=== PATIENT | female | born 1950 | race Caucasian/White ===

== ENCOUNTER 2018-10-03 10:36 | Observation (INO) | payer MEDICARE ==
[~2018-10-03] VITALS: Ht 162.6 cm; Wt 103.5 kg
--- OUTSIDE RECORDS SUMMARY | 2018-10-03 10:39 | XMS REPORT | Clinical Summary ---
Author Author [facility] Organization [facility] Address Unknown Phone Unavailable Care Team Providers Care Counter Maker Name Role Phone Terese Walker MD PCP Allergies Comments Active Allergy Reactions Severity Noted Date Penicillin Breathing 07/11/2017 problems Medications End Date Status Medication Sig Dispensed Refills Start Date Active silver sulfADIAZINE Apply to 25 g 0 (SILVADENE) 1 % topical affected area 4 creamIndications: Ulcer, daily. skin, non-healing Active clonazePAM (KLONOPIN) 0.5 Take 1 tablet 30 tablet 2 mg tabletIndications: by mouth 4 Anxiety state, daily. unspecified Active acetaminophen-codeine Take 1 tablet 20 tablet 0 (TYLENOL/CODEINE #3) by mouth 4 300-30 mg per every 4 hours tabletIndications: Caries as needed for Pain. Active traMADol (ULTRAM) 50 mg Take 1 tablet 30 tablet 0 tabletIndications: S/P by mouth 4 tooth extraction, Pain, every 8 hours dental as needed for Pain. Active cloNIDine HCl (CATAPRES) Take 1 tablet 90 tablet 2 0.1 mg tabletIndications: by mouth at 4 Insomnia, unspecified, bedtime HTN (hypertension) nightly. Active omeprazole (PRILOSEC) 20 Take 1 90 capsule 2 mg delayed release capsule by 5 capsuleIndications: GERD mouth daily. (gastroesophageal reflux disease) Active promethazine (PHENERGAN) Take 1 tablet 30 tablet 2 12.5 mg by mouth 2 5 tabletIndications: Nausea times daily with vomiting as needed for Nausea or Vomiting. Active Acetaminophen 650 mg Take 650 mg 0 tablet by mouth 2 3 times daily. Active 1 mL diphenhydrAMINE Take 5 mL by 60 mL 0 syrup-1 mL lidocaine mouth 3 times 6 mucosal solution-1 mL daily. xwmpirqtj-iekrygfh-izqdmo antwon-simethicone oral suspension-CMPDIndication s: Ulcer aphthous oral Active cyanocobalamin (VITAMIN Inject 1,000 1 mL 0 B-12) 1,000 mcg/mL mcg under the 6 injectionIndications: skin every Other fatigue month for Other (fatigue). Active Syringe with Needle 3mL Inject 10 Syringe 0 23Gx1" (BD INTEGRA 3ML intramuscular 6 23GX1") ly every syringe-needleIndications month for : Other fatigue Other Use a new syringe each time. Pharmacist is authorized to dispense any syringe/needl e brand/size suitable for patient administratio n. Active metFORMIN (GLUCOPHAGE-XR) TAKE ONE (1) 180 tablet 1 500 mg ER extended TABLET(S) BY 6 release MOUTH TWICE A tabletIndications: DAY. Diabetes mellitus type 2 in obese Active tretinoin (RETIN-A) 0.025 Apply to 20 g 3 % topical affected area 7 creamIndications: Acne at bedtime vulgaris nightly Apply small pea-sized amount to entire face. Start 3x per week and increase as tolerated.. Active acetaminophen-codeine Take 1 tablet 20 tablet 0 (TYLENOL/CODEINE #3) by mouth 7 300-30 mg per every 4 hours tabletIndications: Status as needed for post re-excision of Pain. malignant skin lesion Active hydroCHLOROthiazide 12.5 TAKE ONE (1) 90 capsule 0 mg capsuleIndications: CAPSULE(S) BY 7 Essential hypertension MOUTH EVERY MORNING.. Active potassium chloride Take 1 tablet 5 tablet 0 (KLOR-CON M20) 20 mEq by mouth 7 extended release daily. tabletIndications: Hypokalemia Active gabapentin (NEURONTIN) Take 1 270 capsule 2 300 mg capsule by 7 capsuleIndications: mouth 3 times Diabetic mononeuropathy daily. associated with diabetes mellitus due to underlying condition Active amLODIPine (NORVASC) 5 mg Take 1 tablet 180 tablet 2 tabletIndications: by mouth 2 7 Essential hypertension times daily. Active zolpidem (AMBIEN) 5 mg TAKE ONE (1) 30 tablet 1 TabIndications: Insomnia, TABLET(S) BY 7 unspecified MOUTH AT BEDTIME NIGHTLY.. Active Irbesartan 150 mg tablet Take 1 tablet 180 tablet 3 by mouth 2 7 times daily. Active traMADol (ULTRAM) 50 mg Take 1 tablet 15 tablet 0 tabletIndications: Wrist by mouth 7 pain, acute, right every 6 hours as needed for Pain. Active albuterol (VENTOLIN Inhale 2 20.1 g 0 HFA,PROVENTIL HFA,PROAIR Puffs by 7 HFA) 90 mcg/actuation mouth 4 times inhalerIndications: SOB daily as (shortness of breath) on needed for exertion Wheezing. Active FLUoxetine (PROZAC) 20 mg Take 2 180 capsule 3 capsuleIndications: capsules by 8 Anxiety mouth daily. Active glipiZIDE (GLUCOTROL) 10 Take 1 tablet 90 tablet 2 mg tabletIndications: by mouth 8 Controlled type 2 daily. diabetes mellitus without complication, without long-term current use of insulin, Medication dose decreased Active atorvastatin (LIPITOR) 20 Take 1 tablet 90 tablet 2 mg tabletIndications: by mouth at 8 Pure hypercholesterolemia bedtime nightly. Active loratadine (CLARITIN) 10 Take 1 tablet 90 tablet 2 mg tabletIndications: by mouth 8 Allergic cough daily. Active hydrALAZINE (APRESOLINE) Take 4 tabs 1080 tablet 2 25 mg tabletIndications: (100mg) p.o. 8 Essential hypertension, TID for HTN. benign, Essential hypertension Active ciclesonide (ZETONNA) 37 Use 1 [place] 6.7 g 2 mcg/actuation nasal HFA in each 8 inhalerIndications: nostril Allergic cough daily. Substituted for Nasonex per P&T. Active sulindac (CLINORIL) 200 Take 1 tablet 40 tablet 0 mg tabletIndications: by mouth 2 8 Right wrist pain, times daily Post-traumatic as needed for osteoarthritis of first Pain. carpometacarpal joint of right hand, Median mononeuropathy, right 11/02/2017 Discontinued glipiZIDE (GLUCOTROL) 10 Take 1 tablet 90 tablet 2 09/15/201 mg tabletIndications: by mouth 7 Controlled type 2 daily. diabetes mellitus without complication, without long-term current use of insulin, Hypoglycemia, Medication dose decreased 11/02/2017 Discontinued hydrALAZINE (APRESOLINE) Take 4 tabs 360 tablet 2 25 mg tabletIndications: (100mg) p.o. 7 Essential hypertension, TID for HTN. benign 11/02/2017 Discontinued atorvastatin (LIPITOR) 20 Take 1 tablet 90 tablet 2 mg tabletIndications: by mouth at 7 Pure hypercholesterolemia bedtime nightly. 11/02/2017 Discontinued loratadine (CLARITIN) 10 Take 1 tablet 90 tablet 2 mg tabletIndications: by mouth 7 Allergic cough daily. 11/02/2017 Discontinued ciclesonide (ZETONNA) 37 Use 1 [place] 6.7 g 2 mcg/actuation nasal HFA in each 7 inhaler nostril daily. Substituted for Nasonex per P&T. 11/02/2017 Discontinued sulindac (CLINORIL) 200 Take 1 tablet 40 tablet 0 mg tabletIndications: by mouth 2 8 Right wrist pain, times daily Post-traumatic as needed for osteoarthritis of first Pain. carpometacarpal joint of right hand 11/02/2017 tropicamide (MYDRIACYL) Instill 1 15 mL 0 0.5 % ophthalmic Drop in each 8 solutionIndications: eye once as Controlled type 2 needed for up diabetes mellitus without to 1 dose complication, without (for poor long-term current use of retina scan insulin image). Active Problems Problem Noted Date Syncope and collapse 11/23/2016 Overview: H/o syncopy Mood disorder 04/13/2014 Edentulism, partial 04/06/2014 Anxiety state, unspecified 12/16/2013 Adjustment disorder with mixed anxiety and depressed mood 10/30/2013 Encounters Care Team Description Date Type Specialty Terese Walker MD 11/19/2017 Hospital Radiology Encounter Terese Walker MD Median mononeuropathy, right (Primary Dx); Essential hypertension; Right wrist pain; Controlled type 2 diabetes mellitus without complication, without long-term current use of insulin; Post-traumatic osteoarthritis of first carpometacarpal joint of right hand; Medication dose decreased; Pure hypercholesterolemia; Allergic cough; Essential hypertension, benign; Visit for screening mammogram; Encounter to discuss test results 11/02/2017 Office Visit Family Practice Terese Walker MD Tan, Faye C, MD Right wrist pain (Primary Dx); Controlled diabetes mellitus type 2 with complications, 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; Carpal tunnel syndrome of right wrist; Swelling of right hand 10/15/2017 Procedure Visit Physical Medicine and Rehab after 10/02/2017 Family History Medical History Relation Name Comments Hypertension Brother Hypertension Sister Cancer Sister breast cancer Relation Name Status Comments Brother Father brain tumor Mother Alive Sister Sister Social History Date Tobacco Use Types Packs/Day Years Used Never Smoker Smokeless Tobacco: Never Used Tobacco Cessation: Counseling Given: Yes Alcohol Use Drinks/Week oz/Week Comments Yes Sex Assigned at Date Recorded Not on file Industry Job Start Date Occupation Not on file Not on file Not on file Travel End Travel History Travel Start No recent travel history available. Last Filed Vital Signs Time Taken Vital Sign Reading 11/02/2017 8:16 AM [employer]KJ[employer] OPERATOR Blood Pressure 152/64 11/02/2017 7:28 AM INKJET OPERATOR Pulse 79 11/02/2017 7:28 AM INKJET OPERATOR Temperature 36.7 C (98.1 F) 11/02/2017 7:28 AM INKJET OPERATOR Respiratory Rate 18 - Oxygen Saturation - - Inhaled Oxygen - Concentration 11/02/2017 7:28 AM INKJET OPERATOR Weight 101.6 kg (224 lb) 11/02/2017 7:28 AM INKJET OPERATOR Height 162.6 cm (5' 4") 11/02/2017 7:28 AM INKJET OPERATOR Body Mass Index 38.45 Plan of Treatment Health Maintenance Due Date Last Done Comments Breast Cancer Scrn 01/24/2017 01/25/2016, 02/12/2014 (Yearly) IMM Pneumococcal Age 65 2017 and Up DM Retinal Exam (Yearly) 12/27/2017 12/27/2016, 07/14/2015, 12/25/2013, Additional history exists DM Foot Exam (Yearly) 06/04/2018 06/04/2017, 07/14/2015, 07/03/2014 DM Microalbumin Urine 06/04/2018 06/04/2017, 01/23/2017, 09/07/2016, Scrn (Yearly) Additional history exists DM HGBA1C (Yearly) 11/02/2018 11/02/2017, 01/23/2017, 05/04/2016, Additional history exists Colonoscopy 5yr 04/15/2019 04/15/2014 Procedures Comments Procedure Name Priority Date/Time Associated Diagnosis XRAY UPPER GI W AIR Routine 11/19/2017 Gastroesophageal reflux CONTRAST 9:58 AM CDT disease without esophagitis HEMOGLOBIN A1C STAT 11/02/2017 Controlled type 2 9:03 AM INKJET OPERATOR diabetes mellitus without complication, without long-term current use of insulin NEEDLE EMG, 1 EXTREMITY Routine 10/15/2017 Numbness and tingling of 2:30 PM INKJET OPERATOR right hand after 10/02/2017 Results * XRAY UPPER GI W AIR CONTRAST (11/19/2017 9:58 AM CDT) Impressions Performed At IMPRESSION: SMS Slightly delayed relaxation of the distal esophageal sphincter with ballooning of the distal esophagus and intraesophageal reflux. Tertiary esophageal contraction waves eventually clear the esophageal contents. Dictated By: Asa Nelson MD, 11/19/2017 5:08 PM I have reviewed the study and agree with the findings in this report. Signed By: Evan West MD, 11/20/2017 1:09 PM Narrative Performed At EXAM: FLUOROSCOPY BARIUM UPPER GI DOUBLE CONTRAST SMS DATE: 11/19/2017 9:58 AM INDICATION: Dysphasia to liquids and solids. Regurgitation of food. COMPARISON: Upper GI 11/12/2014 TECHNIQUE: Upper GI was performed using double contrast technique orally. A barium tablet was also given. Images were obtained under fluoroscopy. Fluoroscopy time: 369 seconds Preliminary radiograph: Normal. Swallowing: Normal. The upper esophageal sphincter opened promptly. Esophagus: Motility: There is normal motility and esophageal peristalsis. Anatomy: There is moderate ballooning of the lower esophagus with incomplete relaxation of the lower esophageal sphincter. This also results in intraesophageal reflux with tertiary was a contraction. The lower esophageal sphincter eventually relaxes and the intraesophageal contents clear with repeated swallowing. The barium tablet passed eventually. Hiatal hernia: None. Gastroesophageal reflux: No gastroesophageal reflux was observed during fluoroscopic examination, however this does not entirely exclude gastroesophageal reflux. Stomach:Normal. There are no obstructions or extrinsic compressions identified. Gastric volume is preserved. No peptic ulcers or tumors are identified. Peristalsis of the stomach is normal and the stomach empties rapidly into the small bowel. Duodenum:Normal. No ulcers or masses identified. Procedure Note Interface, Rad/Mammog In - 11/20/2017 1:14 PM CDT EXAM: FLUOROSCOPY BARIUM UPPER GI DOUBLE CONTRAST DATE: 11/19/2017 9:58 AM INDICATION: Dysphasia to liquids and solids. Regurgitation of food. COMPARISON: Upper GI 11/12/2014 TECHNIQUE: Upper GI was performed using double contrast technique orally. A barium tablet was also given. Images were obtained under fluoroscopy. Fluoroscopy time: 369 seconds Preliminary radiograph: Normal. Swallowing: Normal. The upper esophageal sphincter opened promptly. Esophagus: Motility: There is normal motility and esophageal peristalsis. Anatomy: There is moderate ballooning of the lower esophagus with incomplete relaxation of the lower esophageal sphincter. This also results in intraesophageal reflux with tertiary was a contraction. The lower esophageal sphincter eventually relaxes and the intraesophageal contents clear with repeated swallowing. The barium tablet passed eventually. Hiatal hernia: None. Gastroesophageal reflux: No gastroesophageal reflux was observed during fluoroscopic examination, however this does not entirely exclude gastroesophageal reflux. Stomach: Normal. There are no obstructions or extrinsic compressions identified. Gastric volume is preserved. No peptic ulcers or tumors are identified. Peristalsis of the stomach is normal and the stomach empties rapidly into the small bowel. Duodenum: Normal. No ulcers or masses identified. IMPRESSION IMPRESSION: Slightly delayed relaxation of the distal esophageal sphincter with ballooning of the distal esophagus and intraesophageal reflux. Tertiary esophageal contraction waves eventually clear the esophageal contents. Dictated By: Asa Nelson MD, 11/19/2017 5:08 PM I have reviewed the study and agree with the findings in this report. Signed By: Evan West MD, 11/20/2017 1:09 PM Performing Organization Address City/State/Zipcode Phone Number SMS * HEMOGLOBIN A1C (11/02/2017 9:03 AM INKJET OPERATOR) Hemoglobin A1c 5.4 4.3 - 6.1 % [facility] Est Average 108.3 mg/dL [facility] Gluc Specimen Blood Performing Organization Address City/State/Zipcode Phone Number [facility] * NEEDLE EMG, 1 EXTREMITY (10/15/2017 2:30 PM INKJET OPERATOR) Narrative Performed At Kimberlee Warren MD 10/16/20173:03 PM [facility], DEPT PMR [id number] [place] [address] ELECTROMYOGRAPHY REPORT NAME : HEENA LUIS GENDER: FEMALE DATE OF : 1950 ORDERING PHYSICIAN: TERESE [id number] BIB DATE :10/15/2017 14:42 NOTE: RESULTS NOT VALID WITHOUT ATTENDING PHYSICIAN ELECTRONIC SIGNATURE REASON FOR REFERRAL:R WRIST PAIN CC:R WRIST PAIN HPI: 66 Y/O FEMALE C/O 3 MOS. R RADIAL SIDE SWELLING AND PAIN WITH NMBNESS AND TINGLING WITH DRIVING AND WITH MANUAL TASKS. WORSE AT NIGHT, MILD RELIEF WITH NSAIDS.DENIES TRAUMA.L SIDE ASX, + DM, - THYROID DZ, SOME ETOH REVIEW OF SYSTEMS: Constitutional symptoms:SUBJECTIVE FEVERS / WEAKNESS Gastrointestinal : 3 DAY N/V.- BOWEL INCONTINENCE Genitourinary : - BLADDER INCONTINENCE Musculoskeletal: C/O 3 WEEK CHARLEY HORSES R CALF Skin: - RASH Neurological: C/O NUMBNESS / TINGLING GORDON-TRUNK AND JACKIE-LATERAL R THIGH Psychiatric:- ANXIETY / - DEPRESSION Endocrine: + DM / - THYROID DZ SOCIAL HISTORY: UNEMPLOYED.3 / WEEK WINE, - TOB, - ILLICITS PHYSICAL EXAM CONSTITUTIONAL: GEN APPEARANCE:NAD VITALS: TEMP: 98.5 / PULSE: 82 / RESP: 16 NECK: NTTP MUSCULOSKELETAL: DIGITS AND NAILS: PAINTED INSPECTION: - ATROPHY PALPATION: NTTP ROM: FULL STRENGTH: 5/5 B UE TONE: NL GAIT: NL SPECIAL TESTS: SKIN: INSPECTION: - RASH PALPATION: WARM NEUROLOGIC: SENSATION: INTACT B UE / B LE TO KNEE / TRUNK DTR:2+ B BI, TRI, BR PSYCHIATRIC: ORIENTATION: AOX3 MEMORY: NL MOOD/AFFECT: ANXIOUS RESIDENT PHYSICIAN:ZONIA JOYCE EDX Sensory Nerve / Sites Rec. Site Distance Onset Peter Onset Lat Peak Lat Amp Temp. mm m/s ms ms V C R Median - Digit III (Antidromic) Wrist Dig III 140 34.9 4.0 4.9 10.7 33.5 R Ulnar - Digit V (Antidromic) Wrist Dig V 140 48.9 2.9 3.7 6.5 33.5 Motor Nerve / Sites Rec. Site Distance Velocity Latency Amplitude Temp. mm m/s ms mV C R Median - APB Wrist APB 805.1 6.5 33.5 Elbow APB 220 62.1 8.6 5.6 33.5 R Ulnar - ADM Wrist ADM 802.7 6.9 33.4 B.Elbow ADM 170 55.3 5.8 5.7 33.4 EMG EMG Summary Table Spontaneous MUAP Comment Muscle IA Fib PSW Fasc Other Effort Recruit Dur Amp Polys Comment R. Abductor pollicis brevis Normal 0 0 None . Normal Normal Normal Normal None . NERVE SUMMARY: SENSORY: RIGHT MEDIAN: PROLONGED PEAK LATENCY, NORMAL AMPLITUDE RIGHT ULNAR: NORMAL PEAK LATENCY, NORMAL AMPLITUDE MOTOR: RIGHT MEDIAN: PROLONGED ONSET LATENCY, NORMAL AMPLITUDE, NORMAL CONDUCTION VELOCITY RIGHT ULNAR: NORMAL ONSET LATENCY, NORMAL AMPLITUDE, NORMAL CONDUCTION VELOCITY MUSCLE SUMMARY: EMG Findings NORMAL INSERTIONAL ACTIVITY, NO SPONTANEOUS ACTIVITY, NORMAL MUAPS, NORMAL RECRUITMENT. LABS, IMAGING, AND PERTINENT MEDICAL RECORDS REVIEWED AND SUMMARIZED FROM [facility] ABOVE. 1. ABNORMAL STUDY. 2. ELECTRODIAGNOSTIC EVIDENCE OF RIGHT, MILD, MEDIAN MONONEUROPATHY AT THE WRIST: SENSORY, DEMYELINATING. 3.NO ELECTRODIAGNOSTIC EVIDENCE OF RIGHT UPPER LIMB PERIPHERAL POLYNEUROPATHY IN AREAS TESTED. 4.NO ELECTRODIAGNOSTIC EVIDENCE OF RADICULAR SIGNS AT THIS TIME. PLEASE RECONSULT FOR ADDITIONAL TESTING IF NEEDED. ATTENDING PHYSICIAN CONCLUSION: I WAS PRESENT FOR THE WHIPPLE PORTION OF THE NCS/EMG PROCEDURE WITH DR. ZONIA HEDRICK ON 10/15/17. I SAW AND EVALUATED THE PATIENT. I REVIEWED THE RESIDENT S NOTE AND AGREE. PLAN: FOLLOW UP WITH THE REFERRING PHYSICIAN. FACULTY: [facility] ELECTRODIAGNOSTIC LABORATORY NORMAL REFERENCE VALUES FOR COMMON NERVE CONDUCTION STUDIES References used for this table from: 1. Jan and Abbey, Manual of Nerve Conduction Studies, 2nd edition, 2006, [employer], [place], [place] (for a complete listing please refer to this manual) and2. * Nino Hall, and Ronnell, Electrodiagnostic Medicine, 2nd edition, 2002, [employer], [place], [place]. Skin temperature should be > 32 degrees Celsius in the upper limb and > 30 degrees Celsius in the lower limb. Final determination of normality will be made by Attending Physician taking in consideration conditions of testing. Motor Nerve Studies NerveCV(M/s)Onset latency (ms) Amplitude (mV) F-wave (ms) Axillary to Deltoid --<5.4 ms >4.6 mV-- Median to APB (8cm) >49 M/sec <4.5 ms >5 mV*<31.6 ms Musculocut.to Biceps --<5.6 ms > 4.0mV-- Radial to EDC (8cm) >54 M/sec <3.5 ms >4.3 mV-- Suprascapular (Supraspinatus) --<4.3 ms >1.6 mV-- (IS)--<4.8 ms >1.5 mV-- Ulnar to ADM (8cm) (W to BE) > 52 M/sec 2.3-4.4 ms>6.1 +/- 1.9 mV* <31.5 ms (BE to AE) > 43 M/sec Ulnar to FDI --<4.6 ms >5.1 mV-- Femoral to quads (above ligament) --<8.5 ms 0.2 11mV -- (below ligament) --<7.4 ms 0.2 11mV -- Peroneal to EDB (8cm) (ankle to fib head) >38 M/sec <6.5 ms >1.3 mV <61.2 ms (>2.6 mV if under 40 yo) (across knee) >42 M/sec Peroneal to TA >43 M/sec <4.9 ms >1.7 mV-- Tibial to AH (8cm) >39 M/sec <6.1 ms >4.4 mV<61.4 ms Sensory Nerve Studies Nerve CV (M/s) Peak latency (ms) Amplitude (V)-onset to peak Lat. antebrach.cut. --<2.5 ms >5 V Med. antebrach cut. --<2.6 ms >4 V Median to digit 2,3 (14cm) --<3.7 ms*>10 V (>15-19 V if under 50 yo) Radial to base thumb (10cm)--<2.8 ms >7 V Ulnar to digit 5 (14cm) --<3.7 ms*>6 V (>11-14 V if under 50 yo) Dorsal ulnar cut. (10cm) --<2.9 ms >5 V Comparison studies: Median/Radial to thumb --<3.1/3.0 ms>10/3 V Median/Ulnar transcarpal --<2.4/2.4 ms>10/4 V Median/Ulnar 4th digit--<4.1/3.9 ms>5/5 V Lat. fem. cut. (Spevak) >51 M/sec <6.0 ms 2.0 +/- 1.0 V Med. fem. cut.--<3.5 ms 3.4-7.9 V Superficial peroneal (14cm)--<4.2 ms 7.7 +/- 3.9 V Sural (14 cm)--<4.5 ms 10-50 V Plantar (14 cm) (Medial)--<3.7 ms 10-30 V (Lateral)--<3.7 ms 8-20 V Other Nerve Conductions Onset latency (ms) Amplitude (mV) H-reflex to FCR<18.9 ms> 0.8 mV H-reflex to gastrocnemius<35 ms -- Blink reflex(R1) <13 ms (R2 ipsi/contra)<40/41 ms Cranial VII (preauricular)2.8-4.1 ms (postauricular)3.2- 4/4 ms Cranial XI1.7-3.0 ms> 3-4 mV after 10/02/2017
--- OUTSIDE RECORDS SUMMARY | 2018-10-03 10:39 | XMS REPORT ---
Author [facility] Address Unknown Phone Unavailable Care Team Providers Care Apple Checker Name Role Phone Unavailable Unavailable Payers Payer Name Policy Type Policy Number Effective Date Expiration Date Problems This patient has no known problems. Allergies, Adverse Reactions, Alerts Allergy Name Allergy Type Status Severity Reaction(s) Onset Date Inactive Date Treating Clinician Comments Penicillins DA Active SV 2018-08-15 00:00:00 clonidine DA Active NE 2018-08-15 00:00:00 metformin DA Active SV 2018-08-15 00:00:00 clonidine DA Active NE 2018-07-08 00:00:00 Penicillins DA Active SV 2018-04-08 00:00:00 metformin DA Active SV 2018-04-08 00:00:00 Medications This patient has no known medications. Encounters Start Date/Time End Date/Time Encounter Type Admission Type Attending Clinicians Care Facility Care Department Encounter ID 2017-12-28 00:00:00 2017-12-28 00:00:00 Outpatient [facility] [id number] 2017-11-20 00:00:00 2017-11-20 00:00:00 Outpatient [facility] [id number] 2017-11-20 00:00:00 2017-11-20 00:00:00 Outpatient [facility] [id number] 2017-11-19 08:00:34 2017-11-19 08:00:34 Outpatient [facility] [id number] 2017-11-02 09:07:34 2017-11-02 09:07:34 Outpatient [facility] [id number] 2017-11-02 07:28:06 2017-11-02 07:28:06 Outpatient [facility] [id number] 2017-11-02 00:00:00 2017-11-02 00:00:00 Outpatient [facility] [id number] 2017-11-01 00:00:00 2017-11-01 00:00:00 Outpatient [facility] [id number] 2017-10-15 13:24:44 2017-10-15 13:24:44 Outpatient [facility] [id number] 2017-09-19 08:16:14 2017-09-19 08:16:14 Outpatient [facility] [id number] 2017-09-19 08:14:26 2017-09-19 08:14:26 Outpatient [facility] [id number] 2017-09-12 00:00:00 2017-09-12 00:00:00 Outpatient [facility] [id number] 2017-08-31 10:08:35 2017-08-31 10:08:35 Outpatient [facility] [id number] 2017-08-31 09:30:24 2017-08-31 09:30:24 Outpatient [facility] [id number] 2017-07-11 08:30:36 2017-07-11 08:30:36 Outpatient [facility] [id number] 2017-07-11 00:00:00 2017-07-11 00:00:00 Outpatient [facility] [id number] 2017-06-25 09:47:29 2017-06-25 09:47:29 Outpatient [facility] [id number] 2017-06-18 09:26:51 2017-06-18 09:26:51 Outpatient [facility] [id number] 2017-06-04 10:07:21 2017-06-04 10:07:21 Outpatient [facility] [id number] 2017-05-15 00:00:00 2017-05-15 00:00:00 Outpatient [facility] [id number] 2017-04-18 09:14:11 2017-04-18 09:14:11 Outpatient [facility] [id number] 2017-02-12 18:38:35 2017-02-12 18:38:35 Outpatient [facility] [id number] 2017-02-09 14:10:49 2017-02-09 14:10:49 Outpatient [facility] [id number] 2017-02-08 00:00:00 2017-02-08 00:00:00 Outpatient [facility] [id number] 2017-02-06 09:57:06 2017-02-06 09:57:06 Outpatient [facility] [id number] 2017-02-06 09:38:38 2017-02-06 09:38:38 Outpatient [facility] [id number] 2017-02-06 09:37:26 2017-02-06 09:37:26 Outpatient [facility] [id number] 2017-01-26 00:00:00 2017-01-26 00:00:00 Outpatient [facility] [id number] 2017-01-23 09:20:29 2017-01-23 09:20:29 Outpatient [facility] [id number] 2017-01-23 09:07:45 2017-01-23 09:07:45 Outpatient [facility] [id number] 2017-01-23 07:59:28 2017-01-23 07:59:28 Outpatient [facility] [id number]
[2018-10-03 11:35] LABS: BASOPHILS % 0.5 % (0.0-1.0); EOSINOPHILS # (AUTO) 0.4 (0.0-0.4); EOSINOPHILS % 5.2 % (0.0-6.0); HEMATOCRIT 34.9 % (34.2-44.1); HEMOGLOBIN 11.1 g/dL (12.0-16.0); LYMPHOCYTES # (AUTO) 2.2 (1.0-3.2); LYMPHOCYTES % 28.1 % (18.0-39.1); MEAN CORPUSCULAR HEMOGLOBIN 26.9 pg (28-32); MEAN CORPUSCULAR HGB CONC 31.8 g/dL (31-35); MEAN CORPUSCULAR VOLUME 84.7 fL (81-99); MONOCYTES # (AUTO) 0.5 (0.2-0.8); NEUTROPHILS # (AUTO) 4.6 (2.1-6.9); NEUTROPHILS % 59.8 % (38.7-80.0); PLATELET COUNT 355 x10e3/uL (140-360); RED BLOOD COUNT 4.12 x10e6/uL (3.6-5.1); RED CELL DISTRIBUTION WIDTH 14.5 % (11.7-14.4)
[2018-10-03 11:40] LABS: INR 2.25; PROTHROMBIN TIME 26.6 seconds (11.9-14.5)
[2018-10-03 11:41] LABS: PARTIAL THROMBOPLASTIN TIME 48.8 seconds (23.8-35.5)
[2018-10-03 11:47] LABS: ALANINE AMINOTRANSFERASE 11 IU/L (0-55); ALBUMIN 4.1 g/dL (3.5-5.0); ALBUMIN/GLOBULIN RATIO 1.1 (0.8-2.0); ALKALINE PHOSPHATASE 81 IU/L (40-150); ANION GAP 17.2 mmol/L (8-16); BLOOD UREA NITROGEN 45 mg/dL (7-26); BUN/CREATININE RATIO 34 (6-25); CARBON DIOXIDE 26 mmol/L (22-29); CHLORIDE 100 mmol/L (98-107); CREATINE KINASE 50 IU/L (29-168); CREATININE, SERUM 1.31 mg/dL (0.57-1.11); EST GLOMERULAR FILTRATION RATE 41 ML/MIN (60-); GLUCOSE 86 mg/dL (74-118); POTASSIUM 4.2 mmol/L (3.5-5.1); SODIUM 139 mmol/L (136-145)
--- NOTE | 2018-10-03 12:56 | Diagnostic Imaging Report ---
EXAMINATION: PA and lateral views of the chest. COMPARISON: None CLINICAL HISTORY: Shortness of breath DISCUSSION: The lungs are well-inflated. No focal airspace consolidation, pleural effusion, or pneumothorax. Cardiac silhouette is enlarged. Tortuosity and atherosclerotic calcification of the thoracic aorta. Mild prominence of the central pulmonary vasculature without overt alveolar edema. No acute osseous abnormality. Degenerative disc changes of the thoracic spine. IMPRESSION: Mild enlargement of the cardiac silhouette with pulmonary venous congestion. Signed by: Dr. Jose Raul Mcadams M.D. on 10/03/2018 12:53 PM
[2018-10-03] MEDS ORDERED: ASPIRIN 81 MG CHEW TAB PO ONE (13:15)
[2018-10-03] MEDS ORDERED: FUROSEMIDE INJ 10 MG/ML 4 ML VIAL IV ONE (13:30)
--- OUTSIDE RECORDS SUMMARY | 2018-10-03 14:18 | XMS REPORT | Clinical Summary ---
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 status; Carpal tunnel syndrome of [...] Taken Vital Sign Reading 11/02/2017 8:16 AM GIS ENGINEER Blood Pressure 152/64 11/02/2017 7:28 AM GIS ENGINEER Pulse 79 11/02/2017 7:28 AM GIS ENGINEER Temperature 36.7 C (98.1 F) 11/02/2017 7:28 AM GIS ENGINEER Respiratory Rate 18 - Oxygen Saturation - - Inhaled Oxygen - Concentration 11/02/2017 7:28 AM GIS ENGINEER Weight 101.6 kg (224 lb) 11/02/2017 7:28 AM GIS ENGINEER Height 162.6 cm (5' 4") 11/02/2017 7:28 AM GIS ENGINEER Body Mass Index 38.45 Plan of Treatment [...] STAT 11/02/2017 Controlled type 2 9:03 AM GIS ENGINEER diabetes mellitus without complication, without long-term current use of insulin NEEDLE EMG, 1 EXTREMITY Routine 10/15/2017 Numbness and tingling of 2:30 PM GIS ENGINEER right hand after 10/02/2017 Results * XRAY [...] SMS * HEMOGLOBIN A1C (11/02/2017 9:03 AM GIS ENGINEER) Hemoglobin A1c 5.4 4.3 - 6.1 % [facility] Est Average 108.3 mg/dL [facility] Gluc Specimen Blood Performing Organization Address City/State/Zipcode Phone Number [facility] * NEEDLE EMG, 1 EXTREMITY (10/15/2017 2:30 PM GIS ENGINEER) Narrative Performed At Kimberlee Warren MD 10/16/20173:03 PM [facility], DEPT PMR [address] [place] [address] ELECTROMYOGRAPHY REPORT NAME : HEENA LUIS GENDER: [...] PERTINENT MEDICAL RECORDS REVIEWED AND SUMMARIZED FROM [facility] ABOVE. 1. ABNORMAL STUDY. 2. ELECTRODIAGNOSTIC [...] FOLLOW UP WITH THE REFERRING PHYSICIAN. FACULTY: [facility], [facility] NORMAL REFERENCE VALUES FOR COMMON NERVE CONDUCTION STUDIES References used for this table from: 1. Jan and Abbey, Manual of Nerve Conduction Studies, 2nd edition, 2006, [employer], [place], [place] (for a complete listing please refer to this manual) and2. * Nino Hall, and Ronnell, Electrodiagnostic Medicine, 2nd edition, 2002, [employer], [place], [place]. Skin temperature should be > 32 [...]
[2018-10-03 15:19] LABS: CLARITY,URINE CLEAR (CLEAR); COLOR,URINE COLORLESS (YELLOW)
[2018-10-03 15:20] LABS: BILIRUBIN,URINE NEGATIVE (NEGATIVE); KETONES,URINE NEGATIVE (NEGATIVE); LEUKOCYTE ESTERASE ,URINE NEGATIVE (NEGATIVE); NITRITE,URINE NEGATIVE (NEGATIVE); PROTEIN,URINE DIPSTICK NEGATIVE (NEGATIVE); URINE UROBILINOGEN 0.2 mg/dL (0.2 - 1)
[2018-10-03 15:28] LABS: BACTERIA,URINE RARE /HPF; EPITHELIAL CELLS,URINE RARE /LPF
--- NOTE | 2018-10-03 16:00 | NUR ---
pt arrived to unit via wheel chair, pt alert resp even and unlabored at this time no c/o pain when asked, pt able make needs known, pt oriented to room and call light, pt bed in lowest position, bed rails up x2,call light in reach.
--- NOTE | 2018-10-03 16:10 | NUR ---
pt having echo at bed side.
[2018-10-03] MEDS: FUROSEMIDE INJ 10 MG/ML 4 ML VIAL IV SCH (16:46)
[2018-10-03 16:51] VITALS: BP 169/77
[2018-10-03 19:12] LABS: CHOL/HDL RATIO 4.1 (3.0-3.6)
[2018-10-03 19:14] VITALS: BP 169/77
[2018-10-03 19:54] LABS: CREATINE KINASE MB 0.8 ng/mL (0-5.0)
--- NOTE | 2018-10-03 19:59 | NUR ---
report given to oncoming nurse
[2018-10-03 20:00] VITALS: BP 139/65
--- NOTE | 2018-10-03 20:50 | History and Physical ---
PRIMARY CARE PHYSICIAN: None. CHIEF COMPLAINT: Leg edema. HISTORY OF PRESENT ILLNESS: This is a 67-year-old woman with a history of congestive heart failure, was last hospitalized at [facility], then transitioned to [place], now patient developing worsening leg edema, went to cardiology, Dr. Cárdenas, sent to the hospital due to leg edema. She also had mild chest discomfort, which has since resolved. PAST MEDICAL HISTORY: Diabetes mellitus type 2, congestive heart failure, atrial fibrillation. PAST SURGICAL HISTORY: Hysterectomy, appendectomy, x2, breast implantation status post removal, buttock lift. ALLERGIES: PER ELECTRONIC MEDICAL RECORD. FAMILY/SOCIAL HISTORY: Patient is . Occasional alcohol. No cigarettes or illicits. MEDICATIONS: Per electronic medical record. REVIEW OF SYSTEMS: Denies any fever, chills, sweats, nausea, vomiting, diarrhea, headache, dizziness, vision changes, skin rash. PHYSICAL EXAMINATION: VITAL SIGNS: Reviewed. GENERAL APPEARANCE: Tired-appearing woman resting in bed. HEENT: Anicteric. CARDIOVASCULAR: Normal S1 and S2. LUNGS: She has moderate breath sounds. ABDOMEN: Soft, nontender, nondistended. EXTREMITIES: She has 1+ leg edema bilaterally. SKIN: Dry. PSYCHIATRIC: Normal affect. NEUROLOGICAL: Alert and oriented x3. Moving all extremities. LABS: Reviewed. MEDICATIONS: Reviewed. ASSESSMENT: This is a 67-year-old woman: 1. Acute exacerbation of congestive heart failure. 2. Acute kidney injury. 3. Severe obesity. Body mass index is 39.8. 4. Paroxysmal atrial fibrillation, on anticoagulation. PLAN: 1. Diurese patient. 2. Control blood pressure. 3. Obtain hemoglobin A1c and lipid panel. 4. Use diabetic diet. 5. Cardiology consultation. 6. Will use Pepcid and resume home Coumadin dosing. 7. Disposition: Follow up closely. Follow up labs this morning. Follow up echocardiogram report. Job#: [id number]
[2018-10-03 22:25] VITALS: BP 139/65
[2018-10-04] VITALS: BP 159/69
--- NOTE | 2018-10-04 06:06 | NUR ---
IM- progress note o/N no events REVIEW OF SYSTEMS: Denies any fever, chills, sweats, nausea, vomiting, diarrhea, headache, dizziness, vision changes, skin rash. PHYSICAL EXAMINATION: VITAL SIGNS: Reviewed. GENERAL APPEARANCE: Tired-appearing woman resting in bed. HEENT: Anicteric. CARDIOVASCULAR: Normal S1 and S2. LUNGS: She has moderate breath sounds. ABDOMEN: Soft, nontender, nondistended. EXTREMITIES: She has 1+ leg edema bilaterally. SKIN: Dry. PSYCHIATRIC: Normal affect. NEUROLOGICAL: Alert and oriented x3. Moving all extremities. LABS: Reviewed. MEDICATIONS: Reviewed. ASSESSMENT: This is a 67-year-old woman: 1. Acute exacerbation of congestive heart failure. 2. Acute kidney injury. 3. Severe obesity. Body mass index is 39.8. 4. Paroxysmal atrial fibrillation, on anticoagulation. PLAN: 1. Diurese patient. 2. Control blood pressure. 3. Obtain hemoglobin A1c and lipid panel. 4. Use diabetic diet. 5. Cardiology consultation. 6. Will use Pepcid and resume home Coumadin dosing. 7. Disposition: Follow up closely. Follow up labs this morning. Follow up echocardiogram report. 10/04 Hba1c/LDL 5.8/166- PreDM. check labs; Neri Gar MD, PhD.
[2018-10-04 06:29] LABS: CREATINE KINASE MB 0.8 ng/mL (0-5.0)
[2018-10-04] MEDS ORDERED: LIPITOR20 MG PO (06:47)
[2018-10-04] MEDS ORDERED: FUROSEMIDE40 MG PO (06:47)
[2018-10-04] MEDS ORDERED: FAMOTIDINE20 MG PO (06:47)
[2018-10-04] MEDS ORDERED: ASPIR 8181 MG PO (06:47)
[2018-10-04] MEDS ORDERED: CARVEDILOL3.125 MG PO (06:48)
[2018-10-04 06:54] LABS: BASOPHILS % 0.6 % (0.0-1.0); EOSINOPHILS # (AUTO) 0.3 (0.0-0.4); EOSINOPHILS % 4.9 % (0.0-6.0); HEMATOCRIT 30.4 % (34.2-44.1); LYMPHOCYTES % 28.7 % (18.0-39.1); MEAN CORPUSCULAR HEMOGLOBIN 26.9 pg (28-32); MEAN CORPUSCULAR HGB CONC 32.2 g/dL (31-35); MEAN CORPUSCULAR VOLUME 83.5 fL (81-99); MONOCYTES # (AUTO) 0.6 (0.2-0.8); MONOCYTES % 8.7 % (4.4-11.3); NEUTROPHILS # (AUTO) 3.9 (2.1-6.9); NEUTROPHILS % 56.8 % (38.7-80.0); PLATELET COUNT 273 x10e3/uL (140-360); RED BLOOD COUNT 3.64 x10e6/uL (3.6-5.1); RED CELL DISTRIBUTION WIDTH 14.2 % (11.7-14.4)
[2018-10-04 07:07] LABS: ANION GAP 15.7 mmol/L (8-16); CALCIUM 9.5 mg/dL (8.4-10.2); CREATININE, SERUM 1.1 mg/dL (0.57-1.11); POTASSIUM 3.7 mmol/L (3.5-5.1)
[2018-10-04 07:21] LABS: HEMOGLOBIN 9.8 g/dL (12.0-16.0)
[2018-10-04] MEDS ORDERED: FAMOTIDINE 20 MG TAB PO SCH (07:30)
--- NOTE | 2018-10-04 07:41 | NUR ---
Received patient. Patient resting in bed at this time, no signs of distress. Bed in lowest position, side rails up x2, wheels locked, call light in reach. Will continue to monitor.
[2018-10-04 07:59] VITALS: BP 165/70
[2018-10-04] MEDS: FUROSEMIDE INJ 10 MG/ML 4 ML VIAL IV SCH (08:56)
[2018-10-04] MEDS ORDERED: CARVEDILOL 3.125 MG TAB PO SCH (09:00)
[2018-10-04] MEDS ORDERED: ASPIRIN 81 MG ENTERIC COATED PO SCH (09:00)
[2018-10-04] MEDS ORDERED: ASPIRIN 325 MG TAB PO SCH (09:00)
--- NOTE | 2018-10-04 09:27 | Consultation ---
DATE OF CONSULTATION: CARDIOLOGY CONSULTATION REASON FOR CONSULTATION: Diastolic heart failure. HISTORY OF PRESENT ILLNESS: This is a 67-year-old woman who has a history of moderate coronary artery disease, diastolic heart failure, obesity, obstructive sleep apnea, atrial fibrillation, and prior episodes of pneumonia, who presented as an outpatient to my colleagues office with worsening heart failure symptoms. She states that she has had progressively worsening shortness of breath with fluid accumulation and lower extremity swelling associated with a cough. She was previously admitted for pneumonia twice at [facility], and sent to a rehab facility subsequently. She is currently on Lasix only at 20 mg. She states that her leg swelling and shortness of breath have improved after receiving intravenous Lasix here. She is otherwise asymptomatic and denies any chest pain. REVIEW OF SYSTEMS: A 12-point review of systems was conducted, and is negative otherwise than above in the HPI. PAST MEDICAL HISTORY: As stated above in the HPI. PAST SURGICAL HISTORY: Cardiac catheterization, hysterectomy, appendectomy, breast implantation removal. PAST FAMILY HISTORY: No premature coronary artery disease or sudden cardiac deaths. SOCIAL HISTORY: Occasional alcohol use. Denies any illicit drug use or tobacco use. MEDICATIONS: See medication reconciliation form. ALLERGIES: PENICILLIN, CLONIDINE, METFORMIN. PHYSICAL EXAMINATION VITAL SIGNS: Temperature is 97.3, heart rate is 71, respirations are 21, blood pressure is 165/70, oxygen saturation 98% on room air. GENERAL: She is a well-appearing, well-developed obese woman lying comfortably in bed. HEENT: Head is normocephalic and atraumatic. Eyes: Extraocular muscles are intact. Conjunctivae are clear. NECK: Negative JVD. No bruits. CARDIOVASCULAR: She is regular rate and rhythm. Normal S1 and S2. A 2/6 systolic murmur at the left sternal border. LUNGS: Diminished breath sounds at the bilateral bases. ABDOMEN: Soft, nontender and nondistended. EXTREMITIES: Trace edema. VASCULAR: Two plus pulses. SKIN: Warm, dry and intact. NEUROLOGIC: No focal deficits noted. Cranial nerves grossly intact. PSYCHIATRIC: Normal mood and affect. All laboratory data reviewed. Hemoglobin 9.8. Creatinine 1.1. Cardiac enzymes negative times 3. BNP is 120. LDL 166. Chest x-ray shows mild pulmonary vascular congestion. IMPRESSION 1. Gngle-dl-woteluv diastolic heart failure. 2. Paroxysmal atrial fibrillation. 3. Chronic kidney disease. 4. Obesity. RECOMMENDATIONS: The patient is already feel well and her volume status has improved. The patient will receive 40 mg of intravenous Lasix this morning. She states that she is feeling well and back to her baseline approximately. Continue all current cardiovascular medications, including her anticoagulation for paroxysmal atrial fibrillation. Echocardiogram showed preserved left ventricular systolic function with grade 1 diastolic dysfunction. Please send home the patient on Lasix 40 mg p.o. b.i.d. as she was only on this once daily as an outpatient. If her hemodynamics are stable and she is off oxygen and ambulatory by this afternoon, she can be discharged from a cardiovascular standpoint with close outpatient monitoring. Thank you for the consultation. Will follow along with you. Job#: [id number] RINA
--- NOTE | 2018-10-04 09:30 | NUR ---
Patient A/O X3, even respirations on RA. Last BM this morning, bowel sounds active. Patient is ambulatory. 1+ non-pitting edema to BLE. Left wrist 20 gauge IV saline locked. Skin is intact, call light in reach, will continue to monitor.
[2018-10-04 10:33] VITALS: BP 165/70
[2018-10-04 12:00] VITALS: BP 135/63
--- NOTE | 2018-10-04 12:59 | NUR ---
Spoke with Dr. Gar regarding BMP results.
--- NOTE | 2018-10-04 13:31 | NUR ---
CASE MANAGEMENT INITIAL ASSESSMENT Pattern Technician to bedside to discuss plan of care with patient/family. CM/SW role and care transitions discussed. Anticipated discharge plan discussed along with duration of care. CM/SW discussed patients right to make decisions in care. CM/SW work hours given. Patient lives: alone at senior citizen apartment complex Admit/Transfer: thru ED Hospital/ER visits since last admit: last at [facility] in July 2018 POA/Emergency contact: sister Susie Rivera [phone] Current/Previous Home Health: currently has home health, but does not remember name PCP/Follow-up Care: Dr. Colin who will be retiring soon. pt states she will follow up with Dr. Gar within a week of discharge; goes to Dr. Cárdenas for cardiology Current/Previous DME: none; states she had sleep study done at [facility] and CPAP has been ordered for her. Medications (referring to index hospitalization or the first time you were in the hospital) a. Were changes made in your medications when you were in the hospital on [date of index hospitalization]? yes b. Did you understand the changes? yes c. Were you able to obtain your new medications right away? yes d. Were you able to take your medications like the doctor wanted you to? yes e. Did the hospital give you an accurate, easy to understand list of medications when you left? yes Scale of 1-10 how comfortable does patient feel with disease management in outpatient settin Other Services: none Employment Status: retired Areas of Concerns: CHF Referral Needs: none; already has home health Education Needs: CHF, medical management IMM/GARNER given and signed (if applicable): GARNER explained. signed copy placed in chart. Copy to pt. Goal for discharge: home today CM/SW left business card at the bedside with contact information. Name and number was also written on the patients whiteboard. Patient verbalized understanding of discussion. CM will follow-up with ongoing discharge and transition of care needs.
--- NOTE | 2018-10-04 14:23 | NUR ---
Removed patients IV. Catheter tip intact and pressure dressing applied.
[2018-10-04 15:30] VITALS: BP 179/85
--- NOTE | 2018-10-04 15:42 | NUR ---
Patient discharged from facility. Patient gathered all personal belongings, discharge instructions, prescriptions, and follow up information. Patient went home via private auto. No signs of distress during discharge.
[2018-10-04] MEDS ORDERED: ATORVASTATIN 20 MG TAB PO SCH (21:00)
[2018-10-04] MEDS ORDERED: ATORVASTATIN 40 MG TAB PO SCH (21:00)
== END 2018-10-04 15:44 | disposition home or self-care (01) ==
LOC: ER 10:36 → ERHOLD 14:15 → MED/SURG 15:59
PROVIDERS: ADMIT Internal Medicine; ATTEND Internal Medicine
DX: I11.0 Hypertensive heart disease with heart failure (principal); I50.33 Acute on chronic diastolic (congestive) heart failure; I48.0 Paroxysmal atrial fibrillation; Z79.01 Long term (current) use of anticoagulants; E66.01 Morbid (severe) obesity due to excess calories; Z68.39 Body mass index [BMI] 39.0-39.9, adult
CPT/HCPCS: 36415 ×2; 71046; 80048; 80053; 80061; 81001; 82550 ×2; 82553 ×2; 83036; 83880 ×2; 84484 ×2; 85025 ×2; 85610; 85730; 93005; 93306; 99284; G0378 ×2; J1940 ×2

== ENCOUNTER → 2019-06-06 | Day surgery (SDC) | payer MEDICARE ==
[2019-06-04 15:26] LABS: BASOPHILS % 0.5 % (0.0-1.0); EOSINOPHILS # (AUTO) 0.3 (0.0-0.4); EOSINOPHILS % 3.6 % (0.0-6.0); HEMATOCRIT 32.3 % (34.2-44.1); HEMOGLOBIN 10.7 g/dL (12.0-16.0); LYMPHOCYTES # (AUTO) 2.8 (1.0-3.2); LYMPHOCYTES % 34.8 % (18.0-39.1); MEAN CORPUSCULAR HEMOGLOBIN 30.2 pg (28-32); MEAN CORPUSCULAR HGB CONC 33.1 g/dL (31-35); MEAN CORPUSCULAR VOLUME 91.2 fL (81-99); MONOCYTES # (AUTO) 0.6 (0.2-0.8); MONOCYTES % 7.5 % (4.4-11.3); NEUTROPHILS # (AUTO) 4.2 (2.1-6.9); NEUTROPHILS % 53.3 % (38.7-80.0); PLATELET COUNT 289 x10e3/uL (140-360); RED BLOOD COUNT 3.54 x10e6/uL (3.6-5.1); RED CELL DISTRIBUTION WIDTH 12.9 % (11.7-14.4)
--- NOTE | 2019-06-04 15:29 | Diagnostic Imaging Report ---
EXAMINATION: CHEST 2 VIEWS INDICATION: Pre-operative COMPARISON: Chest radiograph of 10/03/2018 FINDINGS: LINES/TUBES:None LUNGS:The lungs are well-inflated. No focal consolidation or pulmonary edema. PLEURA:No pleural effusion or pneumothorax. MEDIASTINUM:The cardiomediastinal silhouette appears normal in size and shape. BONES/SOFT TISSUES:No acute osseous injury. ABDOMEN:No free air under the diaphragm. IMPRESSION: No focal pneumonia or pulmonary edema. Signed by: Zulma Rodriguez MD on 06/04/2019 3:25 PM
[2019-06-04 15:43] LABS: ANION GAP 13.5 mmol/L (8-16); CALCIUM 9.8 mg/dL (8.4-10.2); CREATININE, SERUM 1.88 mg/dL (0.57-1.11); POTASSIUM 4.5 mmol/L (3.5-5.1)
[~2019-06-06] MED LIST: ACETAMINOPHEN/CODEINE 300MG - 30MG TAB ONE; ALBUTEROL SULF 0.083% NEB SOLN 3 ML NEB ONE; ASPIR 8181 MG PO; BENICAR20 MG PO; BUPIVACAINE HCL 0.5% INJ 30 ML VIAL INJ ONE; CARVEDILOL12.5 MG PO; CARVEDILOL3.125 MG PO; CLARITIN-D 241 EACH PO; DEXAMETHASONE SOD PHOS INJ 4 MG/ML VIAL ONE; ENTRESTO PO; FAMOTIDINE20 MG PO; FENTANYL CITRATE/PF 100MCG/2 ML INJ ONE; FUROSEMIDE40 MG PO; GABAPENTIN300 MG PO; GLIMEPIRIDE2 MG PO; LEVOFLOXACIN 500MG/D5W 100ML 100 ML IV ONE; LIDOCAINE HCL 2% LOCAL INJ 5 ML SDV VIAL INJ ONE; LIPITOR20 MG PO; LORATADINE10 MG PO; MIDAZOLAM HCL 2 MG/2 ML VIAL ONE; NITROGLYCERIN0.4 MG SL; ONDANSETRON HCL INJ 2MG/ML 2ML 2 MG/ML VIAL ONE; PROPOFOL IV EMULSION 10 MG/ML 20 ML VIAL ONE; PROZAC20 MG; SEVOFLURANE INHAL SOLN 250 ML PEN BTL ONE; SPIRONOLACTONE25 MG PO; TEMAZEPAM15 MG PO; XARELTO10 MG PO
[2019-06-06 09:00] VITALS: BP 144/70
--- NOTE | 2019-06-06 11:00 | Operative Report ---
DATE OF PROCEDURE: 06/06/2019 SURGEON: Jose Raul Torres MD PREOPERATIVE DIAGNOSIS: Right breast mass. POSTOPERATIVE DIAGNOSIS: Right breast mass. PROCEDURE: Excision of right breast mass. 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 ANESTHESIA: General. INDICATIONS AND FINDINGS: The patient is a 68-year-old female, history of previous breast implant with subsequent removal, complaints of mass in the right breast. At Surgery, there was some dense breast tissue in the area of the mass as well as fibrous capsule formation at the site of the old breast implants and there was also about 50 mL of fluid beneath the capsule. TECHNIQUE: After adequate general anesthesia, the patient in supine position, the right breast was prepped and draped in a sterile fashion with ChloraPrep solution. Circumareolar incision was made in the superior aspect of the area, it was carried down through subcutaneous tissues of the breast tissue was encountered. There was some dense breast tissue, which was excised and just beneath this was hard capsule from previous breast implant, which was also excised. There was some serous fluid within the capsule, which was drained about 50 mL of fluid was drained. The remaining capsule was excised as well as could be done. Hemostasis was achieved with electrocautery. The wound was irrigated with saline, inspected for hemostasis, which was seen to be adequate. The wound was then infiltrated with 0.5% Marcaine, was inspected for hemostasis once again, which was seen to be adequate. The wound was then closed with 3-0 Vicryl subcutaneous tissue and 4-0 Vicryl subcuticular to the skin. Dermabond and sterile dressing were applied. The patient tolerated the procedure well. Estimated blood loss was 15 mL. There were no complications. All counts were correct and the patient was taken to the recovery room in satisfactory condition. MD CARLOS ALBERTO McgarryG/MODL /[id number]
--- NOTE | 2019-06-10 21:13 | Consultation ---
DATE OF CONSULTATION: Pulmonary Consultation HISTORY OF PRESENT ILLNESS: Patient of Dr. Bassett and also Dr. Neri Gar. The patient with a history of daytime hypersomnolence. The patient is 5 feet 4 inches, 230 pounds, BMI 39.5. Harrison Sleepiness Score was borderline at 6. She does have a history of loud snoring and daytime hypersomnolence. She underwent a diagnostic polysomnogram. She was studied using standard EEG lead montage including electro-oculogram, submentalis EMG, anterior tibialis EMG, nasal and oral thermistors, ribcage and abdominal strain gauge, monitor pulse oximeter, EKG monitoring. Study was abnormal. The patient experienced 36 obstructive apneas, averaging 18 seconds, 7 central and 98 hypopneas as well as 165 respiratory event related arousals. Apnea-hypopnea index was 22.1, consistent with moderately severe obstructive sleep apnea. The apneas occurred when the patient was supine. Sleep efficiency was borderline at 81%. O2 saturation fell as low as 88%. All stages of sleep were recorded. IMPRESSION: Moderately severe obstructive sleep apnea. The patient slept supine during the study. Certainly weight reduction should be part of the patient's therapeutic program. Examination of the nasal and oropharynx should be considered as well as assay of thyroid function if not performed recently. The patient should be warned not to drive when left untreated. In addition to weight reduction, therapeutic options would include uvulopalatopharyngoplasty with joint advancement and nasal CPAP. MD PAT Haynes/MODL /[id number]
== END | disposition home or self-care (01) ==
LOC: OR 05:00
PROVIDERS: ATTEND Surgery
DX: N63.10 Unspecified lump in the right breast, unspecified quadrant (principal); L90.5 Scar conditions and fibrosis of skin; G47.33 Obstructive sleep apnea (adult) (pediatric); I48.91 Unspecified atrial fibrillation; J44.9 Chronic obstructive pulmonary disease, unspecified; I25.10 Atherosclerotic heart disease of native coronary artery without angina pectoris; I44.0 Atrioventricular block, first degree; E11.22 Type 2 diabetes mellitus with diabetic chronic kidney disease; I13.0 Hypertensive heart and chronic kidney disease with heart failure and stage 1 through stage 4 chronic kidney disease, or unspecified chronic kidney disease; N18.9 Chronic kidney disease, unspecified; I50.9 Heart failure, unspecified; D64.9 Anemia, unspecified; K21.9 Gastro-esophageal reflux disease without esophagitis; Z88.6 Allergy status to analgesic agent; Z88.0 Allergy status to penicillin; Z88.8 Allergy status to other drugs, medicaments and biological substances; Z01.810 Encounter for preprocedural cardiovascular examination; Z01.812 Encounter for preprocedural laboratory examination; Z01.818 Encounter for other preprocedural examination; Z79.02 Long term (current) use of antithrombotics/antiplatelets; Z79.84 Long term (current) use of oral hypoglycemic drugs; Z68.39 Body mass index [BMI] 39.0-39.9, adult; Z87.01 Personal history of pneumonia (recurrent)
CPT/HCPCS: 19120; 36415 ×2; 71046; 80048; 82948; 85025; 88305; 93005; J1100; J1956; J2001; J2250; J2405; J2704; J3010; 88307

== ENCOUNTER → 2019-07-08 | Outpatient (CLI) | payer MEDICARE ==
[~2019-07-08] MED LIST changes: -ACETAMINOPHEN/CODEINE 300MG - 30MG TAB ONE; -ALBUTEROL SULF 0.083% NEB SOLN 3 ML NEB ONE; -BUPIVACAINE HCL 0.5% INJ 30 ML VIAL INJ ONE; -DEXAMETHASONE SOD PHOS INJ 4 MG/ML VIAL ONE; -FENTANYL CITRATE/PF 100MCG/2 ML INJ ONE; -LEVOFLOXACIN 500MG/D5W 100ML 100 ML IV ONE; -LIDOCAINE HCL 2% LOCAL INJ 5 ML SDV VIAL INJ ONE; -MIDAZOLAM HCL 2 MG/2 ML VIAL ONE; -ONDANSETRON HCL INJ 2MG/ML 2ML 2 MG/ML VIAL ONE; -PROPOFOL IV EMULSION 10 MG/ML 20 ML VIAL ONE; -SEVOFLURANE INHAL SOLN 250 ML PEN BTL ONE
--- NOTE | 2019-07-08 10:36 | Diagnostic Imaging Report ---
EXAM: CT Chest WITHOUT intravenous contrast 07/08/2019 9:24 AM INDICATION: Shortness of breath COMPARISON: Chest radiograph of 06/04/2019 TECHNIQUE: Chest was scanned utilizing a multidetector helical scanner from the lung apex through the level of the adrenal glands without administration of IV contrast. Coronal and sagittal reformations were obtained. Routine protocol was performed. IV CONTRAST: None RADIATION DOSE: Total DLP: 482.2 mGy*cm. Dose modulation, iterative reconstruction, and/or weight based adjustment of the mA/kV was utilized to reduce the radiation dose to as low as reasonably achievable. COMPLICATIONS: None FINDINGS: LINES/ TUBES: None. LUNGS AND AIRWAYS: The central airways are patent. No focal pneumonia or pulmonary edema. No suspicious pulmonary nodules. PLEURA: No pleural effusion or pneumothorax. HEART AND MEDIASTINUM: There is a 1.5 cm left lower pole hypodense thyroid nodule. No supraclavicular, mediastinal, or hilar lymphadenopathy. Mild cardiomegaly. No pericardial effusion. The main pulmonary artery is mildly enlarged, measuring up to 3.8 cm diameter. Atherosclerotic calcifications involve the coronary arteries, aorta, and proximal great vessels. UPPER ABDOMEN: Noncontrast images of the upper abdomen demonstrate no focal abnormality of the partially visualized liver, spleen, adrenals, upper left kidney, or pancreas. Small sliding hiatal hernia. BONES: No acute osseous injury. No suspicious lytic or blastic lesions. Mild degenerative changes of the visualized spine. SOFT TISSUES: Multiple hypodense mass lesions in the right breast with associated skin thickening and right axillary lymphadenopathy. There is also skin thickening of the left breast with borderline left axillary lymph nodes. IMPRESSION: No focal pneumonia or pulmonary edema. No suspicious pulmonary nodules. Mild cardiomegaly and mild enlargement of the main pulmonary artery can be seen with pulmonary artery hypertension. Hypodense mass lesions of the right breast with associated skin thickening and right axillary lymphadenopathy. Skin thickening also involves the left breast with borderline left axillary lymph nodes. Findings are consistent with provided history of breast cancer. 1.5 cm left lower pole hypodense thyroid nodule. Further evaluation is recommended with dedicated thyroid ultrasound. Signed by: Zulma Rodriguez MD on 07/08/2019 10:32 AM
== END ==
LOC: CT 09:14
PROVIDERS: ATTEND Internal Medicine
DX: R06.09 Other forms of dyspnea (principal)
CPT/HCPCS: 71250

== ENCOUNTER → 2019-07-22 | Outpatient (CLI) | payer MEDICARE ==
[~2019-07-22] MED LIST changes: +ALBUTEROL SULF 0.083% NEB SOLN 3 ML NEB ONE
== END ==
LOC: RESP 10:24
PROVIDERS: ATTEND Internal Medicine
DX: R06.09 Other forms of dyspnea (principal)
CPT/HCPCS: 94060; 94640; 94727; 94729

== ENCOUNTER → 2019-08-06 | Outpatient (CLI) | payer MEDICARE ==
[~2019-08-06] MED LIST changes: -ALBUTEROL SULF 0.083% NEB SOLN 3 ML NEB ONE
--- NOTE | 2019-08-13 05:28 | Polysomnography ---
DATE OF STUDY: REFERRING PHYSICIAN: STUDY PERFORMED: Polysomnogram. Patient of Dr. Bassett. INDICATIONS: The patient with a history of moderately severe obstructive sleep apnea. BMI of 39.5. [place] Sleepiness Score was 7. DESCRIPTION: The patient was monitored using standard EEG lead montage including electro-oculogram, submentalis EMG, anterior tibialis EMG, nasal and oral thermistors, ribcage and abdominal strain gauge, monitor pulse oximeter. She was titrated from a pressure of 5 cm of water pressure to a BiPAP of 20/15. Apneas, hypopneas, O2 desaturation, and snoring were all eliminated at this pressure. She was fitted with a ResMed AirFit N10 standard size mask. This was the patient's first choice. She also could use ResMed AirFit F20 small mask if that is not satisfactory to her. Heated humidification is recommended to improve the patient's comfort and compliance. I recommended that the patient be given a home trial of BiPAP at a level of 20/15. MD PAT Haynes/MODL /[id number]
== END ==
LOC: SLEEP 21:41
PROVIDERS: ATTEND Internal Medicine
DX: G47.33 Obstructive sleep apnea (adult) (pediatric) (principal)
CPT/HCPCS: 95811

== ENCOUNTER → 2019-10-13 | Outpatient (CLI) | payer MEDICARE ==
--- NOTE | 2019-10-13 10:56 | Diagnostic Imaging Report ---
EXAM: CT Chest WITHOUT intravenous contrast 10/13/2019 9:51 AM INDICATION: Shortness of breath, breast cancer COMPARISON: Chest radiograph 06/04/2019, chest CT 07/08/2019 TECHNIQUE: Chest was scanned utilizing a multidetector helical scanner from the lung apex through the level of the adrenal glands without administration of IV contrast. Coronal and sagittal reformations were obtained. Routine protocol was performed. IV CONTRAST: None RADIATION DOSE: Total DLP: 715.1 mGy*cm. Dose modulation, iterative reconstruction, and/or weight based adjustment of the mA/kV was utilized to reduce the radiation dose to as low as reasonably achievable. COMPLICATIONS: None FINDINGS: LINES/ TUBES: None. LUNGS AND AIRWAYS: The central airways are patent. No focal pneumonia or pulmonary edema. No suspicious pulmonary nodule. Airways are normal. PLEURA: The pleural spaces are clear. HEART AND MEDIASTINUM: Unchanged left thyroid nodule. No supraclavicular, mediastinal, or hilar adenopathy. Prominent right and left axillary lymph nodes measure up to 11 mm short axis on the left (image 24) and 9 mm short axis on the right (image 20). Unchanged mild multichamber cardiomegaly. Atherosclerotic calcifications involve the tortuous aorta, coronary arteries, and proximal great vessels. There is no pericardial effusion. Small sliding hiatal hernia. UPPER ABDOMEN: Limited non-contrast views of the upper abdomen show no abnormality within the visualized liver, spleen, pancreas, or kidneys. The adrenal glands are normal. BONES: Mild degenerative changes of the visualized spine. No acute osseous injury. SOFT TISSUES: Previously seen right breast mass and left breast skin thickening are excluded from the [id number] on this study. Unchanged prominent right and left axillary lymph nodes. IMPRESSION: No focal pneumonia or pulmonary edema. Previously seen right breast mass and left breast skin thickening are excluded from the [id number] of this study. Unchanged right and left prominent axillary lymph nodes. Findings are compatible with known history of breast cancer. Unchanged left thyroid nodule. Recommend further evaluation with thyroid ultrasound as previously recommended. Signed by: Zulma Rodriguez MD on 10/13/2019 10:54 AM
== END ==
LOC: CT 09:43
PROVIDERS: ATTEND Internal Medicine
DX: R94.2 Abnormal results of pulmonary function studies (principal)
CPT/HCPCS: 71250

== ENCOUNTER → 2019-10-28 | Day surgery (SDC) | payer MEDICARE ==
[2019-10-27 13:05] LABS: BASOPHILS % 0.5 % (0.0-1.0); EOSINOPHILS # (AUTO) 0.2 (0.0-0.4); EOSINOPHILS % 3.3 % (0.0-6.0); HEMATOCRIT 29.5 % (34.2-44.1); HEMOGLOBIN 9.3 g/dL (12.0-16.0); LYMPHOCYTES # (AUTO) 2.3 (1.0-3.2); LYMPHOCYTES % 30.8 % (18.0-39.1); MEAN CORPUSCULAR HEMOGLOBIN 29.5 pg (28-32); MEAN CORPUSCULAR HGB CONC 31.5 g/dL (31-35); MEAN CORPUSCULAR VOLUME 93.7 fL (81-99); MONOCYTES # (AUTO) 0.6 (0.2-0.8); MONOCYTES % 7.7 % (4.4-11.3); NEUTROPHILS # (AUTO) 4.2 (2.1-6.9); NEUTROPHILS % 57.3 % (38.7-80.0); PLATELET COUNT 253 x10e3/uL (140-360); RED BLOOD COUNT 3.15 x10e6/uL (3.6-5.1); RED CELL DISTRIBUTION WIDTH 12.5 % (11.7-14.4)
[2019-10-27 13:27] LABS: ALBUMIN 3.7 g/dL (3.5-5.0); ANION GAP 14.5 mmol/L (8-16); CALCIUM 9.2 mg/dL (8.4-10.2); CREATININE, SERUM 2.41 mg/dL (0.57-1.11); POTASSIUM 4.5 mmol/L (3.5-5.1)
--- NOTE | 2019-10-27 15:39 | NUR ---
Dr. Cárdenas notified of hemoglobin 9.3, creatinine 2.41, BUN 52, and eGFR 20. No new orders at this time.
[~2019-10-28] VITALS: Ht 162.6 cm; Wt 103.0 kg
[2019-10-28] VITALS (8 sets, daily range): BP systolic 100–168; BP diastolic 64–81
[~2019-10-28] MED LIST changes: +ALPRAZOLAM 0.5 MG TAB ONE; +ASPIRIN325 MG PO; +ASPIRIN81 MG; +DIPHENHYDRAMINE HCL 25 MG CAP ONE; +FENTANYL CITRATE/PF 100MCG/2 ML INJ ONE; +HCTZ PO; +HEPARIN SOD (PORCINE) 1000 UNIT/ML 30ML ONE; +HEPARIN SOD/SOD CHLORIDE 2,000 ML ONE; +IOPAMIDOL 300MG/ML 100 ML INFUS..BTL IV ONE; +LIDOCAINE HCL 2% LOCAL 20 ML VIAL ONE; +MIDAZOLAM HCL 2 MG/2 ML VIAL ONE; +NIFEDIPINE ER30 M1 PO; +NITROGLYCERIN/D5W 200 MCG/ML 0 ML ONE; +SODIUM CHLORIDE 0.9% 1000ML 1,000 ML ONE
--- NOTE | 2019-10-28 09:00 | NUR ---
0900am PREP NOTE PROCEDURAL .................................................................................. pt in rm #10, prepped for procedure. Alert oriented and appropriate, PERRLA, respirations even and unlabored to room air. Pulses x4 extremities equal and faint. Pedal pulses PT/DP weak to palpation 2+/2+/2+/2+ and marked. Cap fill brisk < 3 sec. bilateral feet semi warm and semi-pale. Skin warm and dry integrity appears intact in general. IV to left hand #20 x1 by NAIMA José started and presents healthy w/o s/s of infiltration or complaint. Abdomen soft and supple. pt offered toileting, denies need to urinate or defecate. Personal affects with patient. Family at bedside. Pt and family verbalizes understanding of POC. Daughters x2 Ynes [phone],Salma [phone].Pre-Op Meds Benadryl and Xanax given Side rails up bed in low position and locked. Fall risk,allergy and Id band in place.Identifier x2. Denies c/o. shanelle/naima
--- NOTE | 2019-10-28 12:00 | NUR ---
1200N POST PROCEDURAL NURSING NOTE: Pt in Rm #10 , prepped for procedure. Alert oriented and appropriate, PERRLA, respirations even and unlabored to room air. Pulses x4 extremities equal and faint. Pedal pulses PT/DP present. Cap fill brisk < 3 sec. Skin warm and dry integrity appears intact in general. IV left hand and presents healthy w/o s/s of infiltration or complaint. NS 0.9% infusing at 250ml/hr .Abdomen soft and supple. pt offered toileting, denies need to urinate or defecate. Personal affects with patient. Family at bedside. Pt and family verbalizes understanding of POC. Pre-Op Meds benadryl and xanax given. bed low and locked, side rails up x2 and call light at side rails up.PPx4 Dp/Pt doppler 2+/2+/2+/2+ Dc planning discussed with family and copies of dc plan given to daughters. They will assist pt with f/o MD visits. Aware of importance to followup with Renal Lab evaluation. Dr Cárdenas also spoke with pt and daughters regarding importance of f/o. Downtime till 2pm ds/rn.
--- NOTE | 2019-10-28 14:00 | NUR ---
1400p DISHCARGE NURSING NOTE FROM SECURITY PROJECT MANAGER: Pt meets DC criteria. Left leg MYNX site assessed for s/s of complication and presecence of hematoma. Skin warm, dry, no discolor, and pulses present. IV removed from left hand Distal tip appears intact. VS WNL. Pt denies pain, sob, or need at this time. Family at bedside . Review of discharge paperwork and follow up instructions. verbalized understanding. Pt to wheelchair and transported to front of hospital. Transferred to private vehicle under own strength w/o incident with DC paperwork in hand. - ds/rn
--- NOTE | 2019-10-28 14:02 | Operative Report ---
DATE OF PROCEDURE: 10/28/2019 SURGEON: Nate Cárdenas MD INDICATIONS: Peripheral arterial disease, abnormal AKIN. PROCEDURES PERFORMED: 1. Abdominal aortogram with aortic catheter placement. 2. Third-order catheter placement from the right femoral artery to left superficial femoral artery, unilateral extremity angiogram. COMPLICATIONS: None. RECOMMENDATIONS: Medical therapy. DESCRIPTION OF PROCEDURE: Access was obtained in the right femoral artery. A 6-Tajik sheath was placed. Abdominal aortogram demonstrated widely patent abdominal aorta and iliacs bilaterally. Catheter was advanced from the right femoral artery to left superficial femoral artery with 3-vessel runoff, mild disease, less than 10% luminal stenosis. No intervention deemed necessary. Right groin Mynx closure device applied. The patient discharged home the same day. Off note, the patient's creatinine was 2.4 and GFR 22. The patient received only 10 mL of contrast for entire procedure. Nate Cárdenas MD [facility] /[id number]
== END | disposition home or self-care (01) ==
LOC: CATH LAB 07:54
PROVIDERS: ATTEND Internal Medicine Interventional Cardiology
DX: I73.9 Peripheral vascular disease, unspecified (principal); I48.91 Unspecified atrial fibrillation; I11.0 Hypertensive heart disease with heart failure; I50.30 Unspecified diastolic (congestive) heart failure; E13.8 Other specified diabetes mellitus with unspecified complications; Z88.0 Allergy status to penicillin; Z88.8 Allergy status to other drugs, medicaments and biological substances; Z01.812 Encounter for preprocedural laboratory examination; Z79.02 Long term (current) use of antithrombotics/antiplatelets; Z79.82 Long term (current) use of aspirin; Z79.84 Long term (current) use of oral hypoglycemic drugs; Z68.38 Body mass index [BMI] 38.0-38.9, adult; Z82.49 Family history of ischemic heart disease and other diseases of the circulatory system
CPT/HCPCS: 36247; 36415; 75625; 75710; 80053; 85025; C1760; C1769 ×2; J2001; J2250; J3010; J7030; Q9967; 99152; J1644

== ENCOUNTER → 2019-12-24 | Outpatient (CLI) | payer MEDICARE ==
[~2019-12-24] MED LIST changes: -ALPRAZOLAM 0.5 MG TAB ONE; -DIPHENHYDRAMINE HCL 25 MG CAP ONE; -FENTANYL CITRATE/PF 100MCG/2 ML INJ ONE; -HEPARIN SOD (PORCINE) 1000 UNIT/ML 30ML ONE; -HEPARIN SOD/SOD CHLORIDE 2,000 ML ONE; -IOPAMIDOL 300MG/ML 100 ML INFUS..BTL IV ONE; +IOPAMIDOL 370 MG/ML 200 ML INFUS..BTL INJ ONE; -LIDOCAINE HCL 2% LOCAL 20 ML VIAL ONE; -MIDAZOLAM HCL 2 MG/2 ML VIAL ONE; -NITROGLYCERIN/D5W 200 MCG/ML 0 ML ONE; -SODIUM CHLORIDE 0.9% 1000ML 1,000 ML ONE; +SODIUM CHLORIDE 0.9% 250ML 250 ML ONE; +SODIUM CHLORIDE 0.9% 500ML 500 ML ONE; +SODIUM CHLORIDE 0.9% 50ML 50 ML ONE
[2019-12-24 10:34] LABS: CREATININE, SERUM 1.18 mg/dL (0.57-1.11)
--- NOTE | 2019-12-24 16:56 | Diagnostic Imaging Report ---
EXAM: CT Chest WITHOUT intravenous contrast 12/24/2019 11:30 AM INDICATION: Breast cancer COMPARISON: Chest CT /[id number], chest CT 07/08/2019 TECHNIQUE: Chest was scanned utilizing a multidetector helical scanner from the lung apex through the level of the adrenal glands without administration of IV contrast. Coronal and sagittal reformations were obtained. Routine protocol was performed. IV CONTRAST: None RADIATION DOSE: Total DLP: 562 mGy*cm. Dose modulation, iterative reconstruction, and/or weight based adjustment of the mA/kV was utilized to reduce the radiation dose to as low as reasonably achievable. COMPLICATIONS: None FINDINGS: LINES/ TUBES: None. LUNGS AND AIRWAYS: The central airways are patent. No focal pneumonia or pulmonary edema. No suspicious pulmonary nodule. Airways are normal. PLEURA: The pleural spaces are clear. HEART AND MEDIASTINUM: Unremarkable thyroid. No supraclavicular, mediastinal, or hilar adenopathy. Prominent right and left axillary lymph nodes appear unchanged. Unchanged multichamber cardiomegaly. Atherosclerotic calcifications involve the tortuous aorta, coronary arteries, and proximal great vessels. There is no pericardial effusion. Small sliding hiatal hernia. UPPER ABDOMEN: No acute findings. BONES: Mild degenerative changes of the visualized spine. No acute osseous injury. SOFT TISSUES: Previously seen right breast mass and left breast skin thickening are Partially visualized. Unchanged prominent right and left axillary lymph nodes. IMPRESSION: No focal pneumonia or pulmonary edema. Previously seen right breast mass and left breast skin thickening are partially visualized and not significantly changed. Unchanged right and left prominent axillary lymph nodes. Findings are compatible with known history of breast cancer. Signed by: Zulma Rodriguez MD on 12/24/2019 4:53 PM
== END ==
LOC: CT 09:36
PROVIDERS: ATTEND Internal Medicine
DX: R59.0 Localized enlarged lymph nodes (principal)
CPT/HCPCS: 36415; 71260; 82565; 84520; 96360; J7040; J7050; Q9967

== ENCOUNTER 2020-12-10 08:24 | Inpatient (IN) | payer MEDICARE ==
[~2020-12-10] VITALS: Ht 160 cm; Wt 99.3 kg
[~2020-12-10 08:24] MED LIST changes: -IOPAMIDOL 370 MG/ML 200 ML INFUS..BTL INJ ONE; -SODIUM CHLORIDE 0.9% 250ML 250 ML ONE; -SODIUM CHLORIDE 0.9% 500ML 500 ML ONE; -SODIUM CHLORIDE 0.9% 50ML 50 ML ONE
[2020-12-10] MEDS ORDERED: AZITHROMYCIN 500MG/NS 250 ML 250 ML IV STA (08:27)
[2020-12-10] MEDS ORDERED: ACETAMINOPHEN 325 MG TAB PO STA (08:33)
[2020-12-10] MEDS ORDERED: CEFTRIAXONE SOD 1 GM/50 ML BAG IV ONE (08:45)
[2020-12-10] MEDS ORDERED: SODIUM CHLORIDE 0.9% 1000ML 1,000 ML ONE (08:46)
[2020-12-10 08:54] LABS: BASOPHILS % 0.3 % (0.0-1.0); EOSINOPHILS # (AUTO) 0.1 (0.0-0.4); EOSINOPHILS % 0.4 % (0.0-6.0); HEMATOCRIT 31.7 % (34.2-44.1); HEMOGLOBIN 10.6 g/dL (12.0-16.0); LYMPHOCYTES # (AUTO) 0.6 (1.0-3.2); LYMPHOCYTES % 5.1 % (18.0-39.1); MEAN CORPUSCULAR HGB CONC 33.4 g/dL (31-35); MEAN CORPUSCULAR VOLUME 86.6 fL (81-99); MONOCYTES # (AUTO) 0.8 (0.2-0.8); NEUTROPHILS # (AUTO) 10.3 (2.1-6.9); NEUTROPHILS % 86.6 % (38.7-80.0); PLATELET COUNT 225 x10e3/uL (140-360); RED BLOOD COUNT 3.66 x10e6/uL (3.6-5.1); RED CELL DISTRIBUTION WIDTH 12.2 % (11.7-14.4)
[2020-12-10] MEDS ORDERED: DEXAMETHASONE SOD PHOS 10 MG/1 ML VIAL IV ONE (09:00)
[2020-12-10 09:12] LABS: ALBUMIN 2.6 g/dL (3.5-5.0); ALBUMIN/GLOBULIN RATIO 0.7 (0.8-2.0); ANION GAP 17.1 mmol/L (8-16); CALCIUM 7.8 mg/dL (8.4-10.2); CREATININE, SERUM 1.09 mg/dL (0.57-1.11); POTASSIUM 3.1 mmol/L (3.5-5.1)
[2020-12-10 09:18] LABS: CREATINE KINASE MB 0.3 ng/mL (0-5.0)
[2020-12-10 09:20] LABS: B-TYPE NATRIURETIC PEPTIDE2 107.4 pg/mL (0-100)
[2020-12-10] MEDS ORDERED: MORPHINE SULFATE INJ 2 MG/ML SYR IV PRN (10:00)
[2020-12-10] MEDS ORDERED: ONDANSETRON HCL INJ 2MG/ML 2ML 2 MG/ML VIAL IV PRN (10:00)
[2020-12-10] MEDS ORDERED: MORPHINE SULFATE INJ 4 MG/ML INJ 1ML IV PRN (10:30)
[2020-12-10] MEDS ORDERED: LEVOFLOXACIN 750MG/D5W 150ML 150 ML IV SCH (11:00)
[2020-12-10] MEDS ORDERED: BENZONATATE 100 MG CAP PO PRN (15:15)
[2020-12-10] MEDS ORDERED: GUAIFENESIN/DEXTROMETHORPHAN LIQD 5 ML UDC NG PRN (15:15)
[2020-12-10] MEDS ORDERED: ACETAMINOPHEN 325 MG TAB PO PRN (15:30)
[2020-12-10] MEDS ORDERED: DOCUSATE SODIUM 100 MG CAP PO PRN (15:30)
[2020-12-10 15:49] LABS: CHOL/HDL RATIO 4.1 (3.0-3.6)
[2020-12-10] MEDS ORDERED: ENOXAPARIN SOD INJ 40 MG/0.4 ML SYR SC SCH (17:00)
[2020-12-10] MEDS ORDERED: CARVEDILOL 12.5 MG TAB PO SCH (17:00)
[2020-12-10] MEDS: AZTREONAM (AZACTAM) 0.5 GM in SODIUM CHLORIDE 0.9% 50ML 50 ML IV SCH ×2 (18:00→18:20)
[2020-12-10] MEDS: FUROSEMIDE INJ 10 MG/ML 4 ML VIAL IV SCH (18:19)
[2020-12-10] MEDS: AZITHROMYCIN 250MG/NS 100 ML 100 ML IV SCH (18:19)
[2020-12-10] MEDS: FAMOTIDINE 20 MG TAB PO SCH (18:19)
[2020-12-10] MEDS: CARVEDILOL 3.125 MG TAB PO SCH (18:20)
[2020-12-10] MEDS: ENOXAPARIN SODIUM INJ 100 MG/ML SYR SC SCH (18:20)
[2020-12-10 18:48] VITALS: BP 156/69
[2020-12-10 20:00] VITALS: BP 171/67
[2020-12-10 20:21] VITALS: BP 171/67
[2020-12-10] MEDS ORDERED: LABETALOL HCL 5 MG/ML 20ML VIAL IV PRN (20:45)
[2020-12-10] MEDS ORDERED: DEXTROSE 50% SYRINGE 50 ML IV PRN (20:45)
[2020-12-10] MEDS ORDERED: ZOLPIDEM TARTRATE 5 MG TAB PO PRN (21:00)
[2020-12-10] MEDS ORDERED: ATORVASTATIN 20 MG TAB PO SCH (21:00)
[2020-12-10] MEDS: TEMAZEPAM 15 MG CAP PO SCH (21:07)
[2020-12-10] MEDS: INSULIN LISPRO 100 UNIT/1 ML 3ML VIAL SQ SCH (21:07)
[2020-12-10] MEDS: ATORVASTATIN 40 MG TAB PO SCH (21:07)
[2020-12-10] MEDS: GABAPENTIN 300 MG CAP PO SCH (21:07)
[2020-12-11] VITALS (7 sets, daily range): BP systolic 99–176; BP diastolic 56–93
[2020-12-11 01:35] LABS: CREATINE KINASE MB 1.3 ng/mL (0-5.0)
[2020-12-11] MEDS: ENOXAPARIN SODIUM INJ 100 MG/ML SYR SC SCH ×2 (06:00→18:14)
[2020-12-11] MEDS: FUROSEMIDE INJ 10 MG/ML 4 ML VIAL IV SCH ×2 (06:00→18:14)
[2020-12-11] MEDS: AZTREONAM (AZACTAM) 0.5 GM in SODIUM CHLORIDE 0.9% 50ML 50 ML IV SCH ×2 (06:00→18:14)
[2020-12-11 06:06] LABS: BASOPHILS % 0.2 % (0.0-1.0); HEMATOCRIT 30.9 % (34.2-44.1); HEMOGLOBIN 10.2 g/dL (12.0-16.0); LYMPHOCYTES # (AUTO) 0.8 (1.0-3.2); LYMPHOCYTES % 6.3 % (18.0-39.1); MEAN CORPUSCULAR HEMOGLOBIN 28.7 pg (28-32); MONOCYTES # (AUTO) 0.5 (0.2-0.8); MONOCYTES % 4.1 % (4.4-11.3); NEUTROPHILS # (AUTO) 11.4 (2.1-6.9); NEUTROPHILS % 88.7 % (38.7-80.0); PLATELET COUNT 265 x10e3/uL (140-360); RED BLOOD COUNT 3.55 x10e6/uL (3.6-5.1); RED CELL DISTRIBUTION WIDTH 12.1 % (11.7-14.4)
[2020-12-11 06:23] LABS: ALBUMIN 2.7 g/dL (3.5-5.0); ALBUMIN/GLOBULIN RATIO 0.6 (0.8-2.0); ANION GAP 16.4 mmol/L (8-16); CALCIUM 8.6 mg/dL (8.4-10.2); CREATININE, SERUM 1.03 mg/dL (0.57-1.11); POTASSIUM 3.4 mmol/L (3.5-5.1)
[2020-12-11 07:15] LABS: MAGNESIUM 1.8 MG/DL (1.3-2.1); PHOSPHORUS 1.9 MG/DL (2.3-4.7)
[2020-12-11] MEDS: INSULIN LISPRO 100 UNIT/1 ML 3ML VIAL SQ SCH ×4 (07:30→21:00)
[2020-12-11] MEDS: FAMOTIDINE 20 MG TAB PO SCH ×2 (08:30→16:30)
[2020-12-11] MEDS: SPIRONOLACTONE 25 MG TAB PO SCH (09:11)
[2020-12-11] MEDS: GABAPENTIN 300 MG CAP PO SCH ×3 (09:11→20:23)
[2020-12-11] MEDS: LORATADINE 10 MG TAB PO SCH (09:11)
[2020-12-11] MEDS: ASPIRIN 81 MG CHEW TAB PO SCH (09:11)
[2020-12-11] MEDS: FLUOXETINE HCL 20 MG CAP PO SCH (09:11)
[2020-12-11] MEDS: CARVEDILOL 3.125 MG TAB PO SCH ×2 (09:11→17:12)
[2020-12-11] MEDS: AZITHROMYCIN 250MG/NS 100 ML 100 ML IV SCH (16:00)
[2020-12-11] MEDS ORDERED: SODIUM CHLORIDE 0.9% 250ML 250 ML ONE (16:49)
[2020-12-11] MEDS ORDERED: POTASSIUM CHLORIDE 20 MEQ TAB CR PO ONE (17:15)
[2020-12-11] MEDS: ATORVASTATIN 40 MG TAB PO SCH (20:23)
[2020-12-11] MEDS: TEMAZEPAM 15 MG CAP PO SCH (20:23)
[2020-12-12] VITALS (8 sets, daily range): BP systolic 133–166; BP diastolic 57–74
[2020-12-12] MEDS: AZTREONAM (AZACTAM) 0.5 GM in SODIUM CHLORIDE 0.9% 50ML 50 ML IV SCH ×2 (06:14→18:48)
[2020-12-12] MEDS: ENOXAPARIN SODIUM INJ 100 MG/ML SYR SC SCH ×2 (06:14→18:47)
[2020-12-12] MEDS: FUROSEMIDE INJ 10 MG/ML 4 ML VIAL IV SCH ×2 (06:14→18:47)
[2020-12-12 06:39] LABS: ANION GAP 15.4 mmol/L (8-16); CALCIUM 8.3 mg/dL (8.4-10.2); CREATININE, SERUM 1.15 mg/dL (0.57-1.11); MAGNESIUM 1.6 MG/DL (1.3-2.1); POTASSIUM 3.4 mmol/L (3.5-5.1)
[2020-12-12] MEDS: INSULIN LISPRO 100 UNIT/1 ML 3ML VIAL SQ SCH ×4 (07:30→21:57)
[2020-12-12] MEDS: FAMOTIDINE 20 MG TAB PO SCH ×2 (07:45→16:41)
[2020-12-12] MEDS: GABAPENTIN 300 MG CAP PO SCH ×3 (09:07→21:44)
[2020-12-12] MEDS: CARVEDILOL 3.125 MG TAB PO SCH ×2 (09:07→17:14)
[2020-12-12] MEDS: ASPIRIN 81 MG CHEW TAB PO SCH (09:07)
[2020-12-12] MEDS: LORATADINE 10 MG TAB PO SCH (09:07)
[2020-12-12] MEDS: FLUOXETINE HCL 20 MG CAP PO SCH (09:07)
[2020-12-12] MEDS: SPIRONOLACTONE 25 MG TAB PO SCH (09:07)
[2020-12-12] MEDS: AZITHROMYCIN 250MG/NS 100 ML 100 ML IV SCH (16:41)
[2020-12-12] MEDS ORDERED: POTASSIUM CHLORIDE 20 MEQ TAB CR PO ONE (19:30)
[2020-12-12] MEDS: ATORVASTATIN 40 MG TAB PO SCH (21:43)
[2020-12-12] MEDS: TEMAZEPAM 15 MG CAP PO SCH (21:44)
[2020-12-13 00:46] VITALS: BP 129/67
[2020-12-13 05:17] VITALS: BP 162/81
[2020-12-13] MEDS: FUROSEMIDE INJ 10 MG/ML 4 ML VIAL IV SCH (05:40)
[2020-12-13] MEDS: AZTREONAM (AZACTAM) 0.5 GM in SODIUM CHLORIDE 0.9% 50ML 50 ML IV SCH (05:40)
[2020-12-13] MEDS: ENOXAPARIN SODIUM INJ 100 MG/ML SYR SC SCH (05:40)
[2020-12-13] MEDS ORDERED: OLMESARTAN MEDOX5 MG PO (06:03)
[2020-12-13] MEDS ORDERED: FUROSEMIDE40 MG PO (06:03)
[2020-12-13] MEDS ORDERED: TESSALON PERLE100 MG PO (06:03)
[2020-12-13] MEDS ORDERED: LEVOFLOXACIN250 MG PO (06:05)
[2020-12-13] MEDS: INSULIN LISPRO 100 UNIT/1 ML 3ML VIAL SQ SCH ×2 (07:30→12:30)
[2020-12-13 07:46] VITALS: BP 162/81
[2020-12-13 08:08] VITALS: BP 174/89
[2020-12-13] MEDS: SPIRONOLACTONE 25 MG TAB PO SCH (08:39)
[2020-12-13] MEDS: LORATADINE 10 MG TAB PO SCH (08:39)
[2020-12-13] MEDS: ASPIRIN 81 MG CHEW TAB PO SCH (08:39)
[2020-12-13] MEDS: FAMOTIDINE 20 MG TAB PO SCH (08:39)
[2020-12-13] MEDS: GABAPENTIN 300 MG CAP PO SCH ×2 (08:40→15:00)
[2020-12-13] MEDS: FLUOXETINE HCL 20 MG CAP PO SCH (08:40)
[2020-12-13] MEDS: CARVEDILOL 3.125 MG TAB PO SCH (08:40)
[2020-12-13 09:32] LABS: BASOPHILS % 0.3 % (0.0-1.0); EOSINOPHILS # (AUTO) 0.4 (0.0-0.4); EOSINOPHILS % 4.3 % (0.0-6.0); HEMOGLOBIN 9.9 g/dL (12.0-16.0); LYMPHOCYTES # (AUTO) 2.1 (1.0-3.2); LYMPHOCYTES % 23.9 % (18.0-39.1); MEAN CORPUSCULAR HEMOGLOBIN 28.9 pg (28-32); MEAN CORPUSCULAR VOLUME 87.7 fL (81-99); MONOCYTES # (AUTO) 0.8 (0.2-0.8); MONOCYTES % 8.7 % (4.4-11.3); NEUTROPHILS # (AUTO) 5.3 (2.1-6.9); NEUTROPHILS % 61.5 % (38.7-80.0); PLATELET COUNT 316 x10e3/uL (140-360); RED BLOOD COUNT 3.42 x10e6/uL (3.6-5.1); RED CELL DISTRIBUTION WIDTH 12.3 % (11.7-14.4)
[2020-12-13 09:57] LABS: ANION GAP 15.8 mmol/L (8-16); CALCIUM 8.8 mg/dL (8.4-10.2); CREATININE, SERUM 1.1 mg/dL (0.57-1.11); MAGNESIUM 1.6 MG/DL (1.3-2.1); POTASSIUM 3.8 mmol/L (3.5-5.1)
[2020-12-13 12:09] VITALS: BP 134/61
[2020-12-13] MEDS ORDERED: ONDANSETRON HCL 4 MG ORAL DISINTEGRATING TAB PO PRN (13:45)
[2020-12-13 15:15] VITALS: BP 138/67
== END 2020-12-13 15:32 | disposition home or self-care (01) | DRG 193 ==
LOC: ER 08:27 → ERHOLD 10:50 → MED/SURG3 12:44
PROVIDERS: ADMIT Internal Medicine; ATTEND Internal Medicine
DX: J18.9 Pneumonia, unspecified organism (principal); I50.33 Acute on chronic diastolic (congestive) heart failure; I13.0 Hypertensive heart and chronic kidney disease with heart failure and stage 1 through stage 4 chronic kidney disease, or unspecified chronic kidney disease; E11.22 Type 2 diabetes mellitus with diabetic chronic kidney disease; N18.30 Chronic kidney disease, stage 3 unspecified; J44.9 Chronic obstructive pulmonary disease, unspecified; I48.0 Paroxysmal atrial fibrillation; E87.6 Hypokalemia; Z74.09 Other reduced mobility; E66.9 Obesity, unspecified; Z68.38 Body mass index [BMI] 38.0-38.9, adult; Z79.01 Long term (current) use of anticoagulants; Z20.822 Contact with and (suspected) exposure to COVID-19; E11.51 Type 2 diabetes mellitus with diabetic peripheral angiopathy without gangrene
CPT/HCPCS: 36415; 71045; 80048; 80053; 80061; 82550; 82553; 82948; 83036; 83605; 83735; 83880; 84100; 84484; 85025; 87040; 93005; 93306; 94660; 97139; 99284; J0456; J1100; J1650; J1940; J7030; J7050; U0002

== ENCOUNTER → 2021-02-03 | Outpatient (CLI) | payer MEDICARE ==
[~2021-02-03] MED LIST changes: +LEVOFLOXACIN250 MG PO; +OLMESARTAN MEDOX5 MG PO; +REGADENOSON 0.4 MG/5 ML SYR IV ONE; +TESSALON PERLE100 MG PO
== END ==
LOC: NM 09:53
PROVIDERS: ATTEND Nurse Practitioner Family
DX: I20.8 Other forms of angina pectoris (principal)
CPT/HCPCS: 78452; 93017; A9502; J2785

== ENCOUNTER → 2021-04-19 | Outpatient (CLI) | payer MEDICARE ==
[~2021-04-19] MED LIST changes: +IOPAMIDOL 370 MG/ML 200 ML INFUS..BTL INJ ONE; -REGADENOSON 0.4 MG/5 ML SYR IV ONE; +SODIUM CHLORIDE 0.9% 50ML 50 ML ONE
== END ==
LOC: CT 07:27
PROVIDERS: ATTEND Nurse Practitioner Family
DX: R06.02 Shortness of breath (principal); I50.9 Heart failure, unspecified
CPT/HCPCS: 71260; Q9967

== ENCOUNTER 2021-05-13 11:45 | Inpatient (IN) | payer MEDICARE ==
[~2021-05-13] VITALS: Ht 160 cm; Wt 99.3 kg
[~2021-05-13 11:45] MED LIST changes: -IOPAMIDOL 370 MG/ML 200 ML INFUS..BTL INJ ONE; -SODIUM CHLORIDE 0.9% 50ML 50 ML ONE
[2021-05-13 12:16] LABS: BASOPHILS # (AUTO) 0.1 (0.0-0.1); BASOPHILS % 0.9 % (0.0-1.0); EOSINOPHILS # (AUTO) 1.5 (0.0-0.4); EOSINOPHILS % 14.3 % (0.0-6.0); HEMATOCRIT 35.6 % (34.2-44.1); HEMOGLOBIN 11.8 g/dL (12.0-16.0); LYMPHOCYTES # (AUTO) 1.9 (1.0-3.2); LYMPHOCYTES % 17.7 % (18.0-39.1); MEAN CORPUSCULAR HEMOGLOBIN 29.2 pg (28-32); MEAN CORPUSCULAR HGB CONC 33.1 g/dL (31-35); MEAN CORPUSCULAR VOLUME 88.1 fL (81-99); MONOCYTES # (AUTO) 0.7 (0.2-0.8); MONOCYTES % 6.6 % (4.4-11.3); NEUTROPHILS # (AUTO) 6.4 (2.1-6.9); NEUTROPHILS % 60.1 % (38.7-80.0); PLATELET COUNT 303 x10e3/uL (140-360); RED BLOOD COUNT 4.04 x10e6/uL (3.6-5.1); RED CELL DISTRIBUTION WIDTH 12.5 % (11.7-14.4)
[2021-05-13 12:48] LABS: ALBUMIN 3.9 g/dL (3.5-5.0); ALBUMIN/GLOBULIN RATIO 1.1 (0.8-2.0); ANION GAP 16.4 mmol/L (8-16); CALCIUM 9.4 mg/dL (8.4-10.2); CREATININE, SERUM 1.43 mg/dL (0.57-1.11); POTASSIUM 3.4 mmol/L (3.5-5.1)
[2021-05-13] MEDS ORDERED: ALBUTEROL/IPRATROPIUM 3 ML NEB NEB SCH (13:00)
[2021-05-13 18:03] VITALS: BP 168/70
[2021-05-13 18:30] VITALS: BP 109/73
[2021-05-13 20:00] VITALS: BP 152/74
[2021-05-13] MEDS: IPRATROPIUM BROMIDE 0.02% 2.5 ML NEB NEB SCH ×3 (21:30→23:55)
[2021-05-13] MEDS ORDERED: FUROSEMIDE INJ 10 MG/ML 4 ML VIAL IV ONE ×2 (21:45)
[2021-05-13] MEDS ORDERED: METHYLPREDNISOLONE SOD SUCC 40 MG/ML VIAL 1ML IV ONE (21:45)
[2021-05-13] MEDS: CEFTRIAXONE 1 GM in SODIUM CHLORIDE 0.9% 50ML 50 ML IV SCH (23:22)
[2021-05-13] MEDS: AZITHROMYCIN 250 MG TAB PO SCH (23:23)
[2021-05-13] MEDS: BENZONATATE 100 MG CAP PO PRN (23:24)
[2021-05-13] MEDS: TEMAZEPAM 7.5 MG CAP PO PRN (23:24)
[2021-05-14] VITALS (8 sets, daily range): BP systolic 116–160; BP diastolic 44–84
[2021-05-14] MEDS: GUAIFENESIN/CODEINE 10 ML CUP PO PRN ×4 (01:07→15:32)
[2021-05-14 06:35] LABS: BASOPHILS % 0.5 % (0.0-1.0); EOSINOPHILS # (AUTO) 0.1 (0.0-0.4); EOSINOPHILS % 1.5 % (0.0-6.0); HEMATOCRIT 34.8 % (34.2-44.1); HEMOGLOBIN 11.8 g/dL (12.0-16.0); LYMPHOCYTES # (AUTO) 0.8 (1.0-3.2); LYMPHOCYTES % 9.2 % (18.0-39.1); MEAN CORPUSCULAR HEMOGLOBIN 29.6 pg (28-32); MEAN CORPUSCULAR HGB CONC 33.9 g/dL (31-35); MEAN CORPUSCULAR VOLUME 87.4 fL (81-99); MONOCYTES # (AUTO) 0.1 (0.2-0.8); MONOCYTES % 1.5 % (4.4-11.3); NEUTROPHILS # (AUTO) 7.2 (2.1-6.9); NEUTROPHILS % 87.1 % (38.7-80.0); PLATELET COUNT 256 x10e3/uL (140-360); RED BLOOD COUNT 3.98 x10e6/uL (3.6-5.1); RED CELL DISTRIBUTION WIDTH 12.5 % (11.7-14.4)
[2021-05-14 06:53] LABS: ANION GAP 18.1 mmol/L (8-16); CALCIUM 9.2 mg/dL (8.4-10.2); CREATININE, SERUM 1.22 mg/dL (0.57-1.11); POTASSIUM 3.1 mmol/L (3.5-5.1)
[2021-05-14] MEDS: FAMOTIDINE 20 MG TAB PO SCH ×2 (07:30→16:30)
[2021-05-14] MEDS ORDERED: FAMOTIDINE 20 MG TAB PO ONE (07:30)
[2021-05-14] MEDS: IPRATROPIUM BROMIDE 0.02% 2.5 ML NEB NEB SCH ×3 (07:45→19:35)
[2021-05-14] MEDS: BENZONATATE 100 MG CAP PO PRN ×2 (08:15→20:44)
[2021-05-14] MEDS ORDERED: LORATADINE 10 MG TAB PO SCH (09:00)
[2021-05-14] MEDS: CEFTRIAXONE 1 GM in SODIUM CHLORIDE 0.9% 50ML 50 ML IV SCH (09:00)
[2021-05-14] MEDS: AZITHROMYCIN 250 MG TAB PO SCH (09:00)
[2021-05-14] MEDS: RIVAROXABAN 15 MG TABLET PO SCH (09:00)
[2021-05-14] MEDS: ASPIRIN 81 MG CHEW TAB PO SCH (09:00)
[2021-05-14] MEDS: GLIMEPIRIDE 2 MG TAB PO SCH ×2 (09:00→17:00)
[2021-05-14] MEDS: SPIRONOLACTONE 25 MG TAB PO SCH (09:00)
[2021-05-14] MEDS: CARVEDILOL 3.125 MG TAB PO SCH ×2 (09:00→17:00)
[2021-05-14] MEDS: FUROSEMIDE INJ 10 MG/ML 4 ML VIAL IV SCH ×2 (09:59→17:00)
[2021-05-14] MEDS: FLUOXETINE HCL 20 MG CAP PO SCH (10:02)
[2021-05-14] MEDS: OLMESARTAN MEDOXOMIL 5 MG TABLET PO SCH (10:30)
[2021-05-14] MEDS: LORATADINE/PSEUDOEPHEDRINE 24 HR SR TAB PO SCH ×2 (12:30→13:30)
[2021-05-14 13:08] LABS: CHOL/HDL RATIO 2.7 (3.0-3.6)
[2021-05-14] MEDS: GABAPENTIN 300 MG CAP PO SCH ×3 (13:10→20:44)
[2021-05-14] MEDS ORDERED: POTASSIUM CHLORIDE 10MEQ EA PO NR (13:30)
[2021-05-14] MEDS: METHYLPREDNISOLONE SOD SUCC 40 MG/ML VIAL 1ML IV SCH ×2 (15:30→20:44)
[2021-05-14] MEDS: GUAIFENESIN/CODEINE 5 ML LIQD PO PRN (20:44)
[2021-05-14] MEDS: TEMAZEPAM 7.5 MG CAP PO PRN (20:44)
[2021-05-14] MEDS: ATORVASTATIN 20 MG TAB PO SCH (20:44)
[2021-05-15] VITALS (7 sets, daily range): BP systolic 138–153; BP diastolic 58–91
[2021-05-15] MEDS: IPRATROPIUM BROMIDE 0.02% 2.5 ML NEB NEB SCH ×5 (00:30→19:10)
[2021-05-15] MEDS: GUAIFENESIN/CODEINE 5 ML LIQD PO PRN ×6 (01:01→23:38)
[2021-05-15] MEDS: BENZONATATE 100 MG CAP PO PRN ×3 (05:26→23:38)
[2021-05-15] MEDS ORDERED: DEXTROSE 50% SYRINGE 50 ML IV PRN (06:30)
[2021-05-15 06:46] LABS: BASOPHILS % 0.2 % (0.0-1.0); HEMATOCRIT 33.8 % (34.2-44.1); HEMOGLOBIN 11.7 g/dL (12.0-16.0); LYMPHOCYTES % 9.1 % (18.0-39.1); MEAN CORPUSCULAR HGB CONC 34.6 g/dL (31-35); MEAN CORPUSCULAR VOLUME 89.7 fL (81-99); MONOCYTES # (AUTO) 0.4 (0.2-0.8); MONOCYTES % 3.3 % (4.4-11.3); NEUTROPHILS # (AUTO) 9.7 (2.1-6.9); NEUTROPHILS % 86.6 % (38.7-80.0); PLATELET COUNT 245 x10e3/uL (140-360); RED BLOOD COUNT 3.77 x10e6/uL (3.6-5.1); RED CELL DISTRIBUTION WIDTH 13.1 % (11.7-14.4)
[2021-05-15 07:21] LABS: ANION GAP 15.7 mmol/L (8-16); CALCIUM 9.2 mg/dL (8.4-10.2); CREATININE, SERUM 1.2 mg/dL (0.57-1.11); POTASSIUM 3.7 mmol/L (3.5-5.1)
[2021-05-15] MEDS: INSULIN LISPRO 100 UNIT/1 ML 3ML VIAL SQ SCH ×4 (07:30→21:00)
[2021-05-15] MEDS: OLMESARTAN MEDOXOMIL 5 MG TABLET PO SCH (09:00)
[2021-05-15] MEDS: FLUOXETINE HCL 20 MG CAP PO SCH (09:00)
[2021-05-15] MEDS: RIVAROXABAN 15 MG TABLET PO SCH (09:00)
[2021-05-15] MEDS: AZITHROMYCIN 250 MG TAB PO SCH (09:00)
[2021-05-15] MEDS: GLIMEPIRIDE 2 MG TAB PO SCH ×2 (09:00→16:58)
[2021-05-15] MEDS: CARVEDILOL 3.125 MG TAB PO SCH ×2 (09:00→16:59)
[2021-05-15] MEDS: CEFTRIAXONE 1 GM in SODIUM CHLORIDE 0.9% 50ML 50 ML IV SCH (09:00)
[2021-05-15] MEDS: SPIRONOLACTONE 25 MG TAB PO SCH (09:00)
[2021-05-15] MEDS: METHYLPREDNISOLONE SOD SUCC 40 MG/ML VIAL 1ML IV SCH ×2 (09:00→20:45)
[2021-05-15] MEDS: GABAPENTIN 300 MG CAP PO SCH ×3 (09:00→20:45)
[2021-05-15] MEDS: ASPIRIN 81 MG CHEW TAB PO SCH (09:00)
[2021-05-15] MEDS: FUROSEMIDE INJ 10 MG/ML 4 ML VIAL IV SCH ×2 (09:36→16:58)
[2021-05-15] MEDS: FAMOTIDINE 20 MG TAB PO SCH ×2 (09:36→16:58)
[2021-05-15] MEDS: LORATADINE/PSEUDOEPHEDRINE 24 HR SR TAB PO SCH (12:00)
[2021-05-15] MEDS: LEVALBUTEROL HCL SOLN NEBU 0.63 MG/3 ML NEB INH SCH ×2 (13:06→18:50)
[2021-05-15] MEDS: BUDESONIDE 0.5MG/2 ML NEB INH SCH (19:07)
[2021-05-15] MEDS: TEMAZEPAM 7.5 MG CAP PO PRN (20:45)
[2021-05-15] MEDS: ATORVASTATIN 20 MG TAB PO SCH (20:45)
[2021-05-16] VITALS (7 sets, daily range): BP systolic 139–176; BP diastolic 73–99
[2021-05-16] MEDS: LEVALBUTEROL HCL SOLN NEBU 0.63 MG/3 ML NEB INH SCH ×4 (00:38→18:51)
[2021-05-16] MEDS: IPRATROPIUM BROMIDE 0.02% 2.5 ML NEB NEB SCH ×6 (00:38→18:51)
[2021-05-16] MEDS: GUAIFENESIN/CODEINE 5 ML LIQD PO PRN ×2 (03:50→22:30)
[2021-05-16] MEDS: FAMOTIDINE 20 MG TAB PO SCH ×2 (07:30→16:29)
[2021-05-16] MEDS: BUDESONIDE 0.5MG/2 ML NEB INH SCH ×2 (08:17→18:51)
[2021-05-16] MEDS: METHYLPREDNISOLONE SOD SUCC 40 MG/ML VIAL 1ML IV SCH ×2 (09:28→20:39)
[2021-05-16] MEDS: SPIRONOLACTONE 25 MG TAB PO SCH (09:28)
[2021-05-16] MEDS: FUROSEMIDE INJ 10 MG/ML 4 ML VIAL IV SCH ×2 (09:28→16:29)
[2021-05-16] MEDS: CEFTRIAXONE 1 GM in SODIUM CHLORIDE 0.9% 50ML 50 ML IV SCH (09:28)
[2021-05-16] MEDS: LORATADINE/PSEUDOEPHEDRINE 24 HR SR TAB PO SCH (09:29)
[2021-05-16] MEDS: OLMESARTAN MEDOXOMIL 5 MG TABLET PO SCH (09:29)
[2021-05-16] MEDS: GABAPENTIN 300 MG CAP PO SCH ×3 (09:29→20:39)
[2021-05-16] MEDS: FLUOXETINE HCL 20 MG CAP PO SCH (09:29)
[2021-05-16] MEDS: ASPIRIN 81 MG CHEW TAB PO SCH (09:29)
[2021-05-16] MEDS: BENZONATATE 100 MG CAP PO PRN (09:30)
[2021-05-16] MEDS: AZITHROMYCIN 250 MG TAB PO SCH (09:30)
[2021-05-16] MEDS: CARVEDILOL 3.125 MG TAB PO SCH ×2 (09:31→16:30)
[2021-05-16] MEDS: GLIMEPIRIDE 2 MG TAB PO SCH ×2 (09:32→16:29)
[2021-05-16] MEDS: INSULIN LISPRO 100 UNIT/1 ML 3ML VIAL SQ SCH ×4 (10:54→20:40)
[2021-05-16] MEDS ORDERED: RIVAROXABAN 15 MG TABLET PO SCH (11:15)
[2021-05-16] MEDS: DOCUSATE SODIUM 100 MG CAP PO SCH (16:29)
[2021-05-16] MEDS: SENNOSIDES 8.6 MG TAB PO SCH (16:34)
[2021-05-16] MEDS: TEMAZEPAM 7.5 MG CAP PO PRN (20:39)
[2021-05-16] MEDS: ATORVASTATIN 20 MG TAB PO SCH (20:39)
[2021-05-17] VITALS (9 sets, daily range): BP systolic 133–160; BP diastolic 64–102
[2021-05-17 01:45] LABS: % IRON SATURATION 13 % (15-50); IRON 47 ug/dL (50-170); TOTAL IRON BINDING CAPACITY 354 ug/dL (261-478); TRANSFERRIN 253 mg/dL (180-382)
[2021-05-17] MEDS: IPRATROPIUM BROMIDE 0.02% 2.5 ML NEB NEB SCH ×4 (02:39→19:25)
[2021-05-17 05:04] LABS: BASOPHILS % 0.1 % (0.0-1.0); HEMATOCRIT 36.1 % (34.2-44.1); HEMOGLOBIN 11.7 g/dL (12.0-16.0); LYMPHOCYTES # (AUTO) 0.9 (1.0-3.2); MEAN CORPUSCULAR HEMOGLOBIN 28.9 pg (28-32); MEAN CORPUSCULAR HGB CONC 32.4 g/dL (31-35); MEAN CORPUSCULAR VOLUME 89.1 fL (81-99); MONOCYTES # (AUTO) 0.2 (0.2-0.8); MONOCYTES % 2.1 % (4.4-11.3); NEUTROPHILS # (AUTO) 10.3 (2.1-6.9); NEUTROPHILS % 89.4 % (38.7-80.0); PLATELET COUNT 326 x10e3/uL (140-360); RED BLOOD COUNT 4.05 x10e6/uL (3.6-5.1); RED CELL DISTRIBUTION WIDTH 12.3 % (11.7-14.4)
[2021-05-17 05:37] LABS: ANION GAP 15.7 mmol/L (8-16); CREATININE, SERUM 1.34 mg/dL (0.57-1.11); POTASSIUM 3.7 mmol/L (3.5-5.1)
[2021-05-17] MEDS: BUDESONIDE 0.5MG/2 ML NEB INH SCH ×2 (06:28→19:25)
[2021-05-17] MEDS: LEVALBUTEROL HCL SOLN NEBU 0.63 MG/3 ML NEB INH SCH ×3 (06:28→19:25)
[2021-05-17] MEDS: FAMOTIDINE 20 MG TAB PO SCH ×2 (09:19→15:41)
[2021-05-17] MEDS: CEFTRIAXONE 1 GM in SODIUM CHLORIDE 0.9% 50ML 50 ML IV SCH (09:19)
[2021-05-17] MEDS: METHYLPREDNISOLONE SOD SUCC 40 MG/ML VIAL 1ML IV SCH ×2 (09:19→20:46)
[2021-05-17] MEDS: FUROSEMIDE INJ 10 MG/ML 4 ML VIAL IV SCH ×2 (09:19→17:29)
[2021-05-17] MEDS: LORATADINE/PSEUDOEPHEDRINE 24 HR SR TAB PO SCH (09:20)
[2021-05-17] MEDS: CARVEDILOL 3.125 MG TAB PO SCH ×2 (09:20→17:30)
[2021-05-17] MEDS: FLUOXETINE HCL 20 MG CAP PO SCH (09:20)
[2021-05-17] MEDS: GABAPENTIN 300 MG CAP PO SCH ×3 (09:20→20:46)
[2021-05-17] MEDS: OLMESARTAN MEDOXOMIL 5 MG TABLET PO SCH (09:20)
[2021-05-17] MEDS: ASPIRIN 81 MG CHEW TAB PO SCH (09:20)
[2021-05-17] MEDS: DOCUSATE SODIUM 100 MG CAP PO SCH ×2 (09:20→17:29)
[2021-05-17] MEDS: SPIRONOLACTONE 25 MG TAB PO SCH (09:20)
[2021-05-17] MEDS: AZITHROMYCIN 250 MG TAB PO SCH (09:20)
[2021-05-17] MEDS: SENNOSIDES 8.6 MG TAB PO SCH ×2 (09:20→17:29)
[2021-05-17] MEDS: INSULIN LISPRO 100 UNIT/1 ML 3ML VIAL SQ SCH ×4 (09:35→20:47)
[2021-05-17] MEDS: BENZONATATE 100 MG CAP PO PRN (15:45)
[2021-05-17] MEDS: GUAIFENESIN/CODEINE 5 ML LIQD PO PRN ×2 (15:45→20:46)
[2021-05-17] MEDS: TEMAZEPAM 7.5 MG CAP PO PRN (20:46)
[2021-05-17] MEDS: ATORVASTATIN 20 MG TAB PO SCH (20:46)
[2021-05-18] VITALS (7 sets, daily range): BP systolic 127–167; BP diastolic 64–124
[2021-05-18] MEDS: IPRATROPIUM BROMIDE 0.02% 2.5 ML NEB NEB SCH ×4 (02:18→18:41)
[2021-05-18] MEDS: BUDESONIDE 0.5MG/2 ML NEB INH SCH ×2 (07:25→18:40)
[2021-05-18] MEDS: LEVALBUTEROL HCL SOLN NEBU 0.63 MG/3 ML NEB INH SCH ×3 (07:25→18:41)
[2021-05-18] MEDS: INSULIN LISPRO 100 UNIT/1 ML 3ML VIAL SQ SCH ×4 (07:30→21:25)
[2021-05-18] MEDS: FUROSEMIDE INJ 10 MG/ML 4 ML VIAL IV SCH ×2 (09:15→16:22)
[2021-05-18] MEDS: CEFTRIAXONE 1 GM in SODIUM CHLORIDE 0.9% 50ML 50 ML IV SCH (09:15)
[2021-05-18] MEDS: FAMOTIDINE 20 MG TAB PO SCH ×2 (09:15→16:22)
[2021-05-18] MEDS: LORATADINE/PSEUDOEPHEDRINE 24 HR SR TAB PO SCH (09:16)
[2021-05-18] MEDS: ASPIRIN 81 MG CHEW TAB PO SCH (09:16)
[2021-05-18] MEDS: SPIRONOLACTONE 25 MG TAB PO SCH (09:16)
[2021-05-18] MEDS: OLMESARTAN MEDOXOMIL 5 MG TABLET PO SCH (09:16)
[2021-05-18] MEDS: IRON SUCROSE 100 MG in SODIUM CHLORIDE 0.9% 100 ML 100 ML IV SCH ×2 (09:16→13:19)
[2021-05-18] MEDS: METHYLPREDNISOLONE SOD SUCC 40 MG/ML VIAL 1ML IV SCH (09:16)
[2021-05-18] MEDS: DOCUSATE SODIUM 100 MG CAP PO SCH ×2 (09:16→16:22)
[2021-05-18] MEDS: SENNOSIDES 8.6 MG TAB PO SCH ×2 (09:17→16:23)
[2021-05-18] MEDS: GABAPENTIN 300 MG CAP PO SCH ×3 (09:17→21:24)
[2021-05-18] MEDS: CARVEDILOL 3.125 MG TAB PO SCH ×2 (09:17→16:23)
[2021-05-18] MEDS: FOLIC ACID 1 MG TAB PO SCH (09:17)
[2021-05-18] MEDS: FLUOXETINE HCL 20 MG CAP PO SCH (09:17)
[2021-05-18] MEDS: AZITHROMYCIN 250 MG TAB PO SCH (09:17)
[2021-05-18] MEDS: GUAIFENESIN/CODEINE 5 ML LIQD PO PRN ×3 (10:01→21:24)
[2021-05-18] MEDS: BENZONATATE 100 MG CAP PO PRN (10:01)
[2021-05-18] MEDS: ATORVASTATIN 20 MG TAB PO SCH (21:24)
[2021-05-18] MEDS: TEMAZEPAM 7.5 MG CAP PO PRN (21:24)
[2021-05-19] VITALS (8 sets, daily range): BP systolic 145–167; BP diastolic 63–89
[2021-05-19] MEDS: IPRATROPIUM BROMIDE 0.02% 2.5 ML NEB NEB SCH ×3 (02:37→20:10)
[2021-05-19] MEDS: LEVALBUTEROL HCL SOLN NEBU 0.63 MG/3 ML NEB INH SCH ×3 (07:15→20:10)
[2021-05-19] MEDS: BUDESONIDE 0.5MG/2 ML NEB INH SCH ×2 (07:20→19:00)
[2021-05-19] MEDS ORDERED: METHYLPREDNISOLONE SOD SUCC 40 MG/ML VIAL 1ML IV SCH (07:30)
[2021-05-19] MEDS: INSULIN LISPRO 100 UNIT/1 ML 3ML VIAL SQ SCH ×4 (08:42→21:30)
[2021-05-19] MEDS ORDERED: DOCUSATE SODIUM 100 MG CAP PO ONE (09:00)
[2021-05-19] MEDS: FAMOTIDINE 20 MG TAB PO SCH ×2 (09:16→16:58)
[2021-05-19] MEDS: FUROSEMIDE INJ 10 MG/ML 4 ML VIAL IV SCH ×2 (09:17→16:58)
[2021-05-19] MEDS: SPIRONOLACTONE 25 MG TAB PO SCH (09:17)
[2021-05-19] MEDS: ASPIRIN 81 MG CHEW TAB PO SCH (09:17)
[2021-05-19] MEDS: LORATADINE/PSEUDOEPHEDRINE 24 HR SR TAB PO SCH (09:17)
[2021-05-19] MEDS: CEFTRIAXONE 1 GM in SODIUM CHLORIDE 0.9% 50ML 50 ML IV SCH (09:17)
[2021-05-19] MEDS: DOCUSATE SODIUM 100 MG CAP PO SCH ×2 (09:17→16:58)
[2021-05-19] MEDS: OLMESARTAN MEDOXOMIL 5 MG TABLET PO SCH (09:17)
[2021-05-19] MEDS: SENNOSIDES 8.6 MG TAB PO SCH ×2 (09:18→16:59)
[2021-05-19] MEDS: CARVEDILOL 3.125 MG TAB PO SCH ×2 (09:18→16:58)
[2021-05-19] MEDS: GABAPENTIN 300 MG CAP PO SCH ×3 (09:19→21:30)
[2021-05-19] MEDS: FLUOXETINE HCL 20 MG CAP PO SCH (09:19)
[2021-05-19] MEDS: AZITHROMYCIN 250 MG TAB PO SCH (09:19)
[2021-05-19] MEDS: FOLIC ACID 1 MG TAB PO SCH (09:19)
[2021-05-19] MEDS: IRON SUCROSE 100 MG in SODIUM CHLORIDE 0.9% 100 ML 100 ML IV SCH (10:40)
[2021-05-19] MEDS: METHYLPREDNISOLONE SOD SUCC 40 MG/ML VIAL 1ML IV SCH (16:58)
[2021-05-19] MEDS ORDERED: TEMAZEPAM 15 MG CAP PO PRN (17:45)
[2021-05-19] MEDS: GUAIFENESIN/CODEINE 5 ML LIQD PO PRN (21:30)
[2021-05-19] MEDS: ATORVASTATIN 20 MG TAB PO SCH (21:30)
[2021-05-19] MEDS: CEFEPIME 1 GM in SODIUM CHLORIDE 0.9% 50ML 50 ML IV SCH (21:30)
[2021-05-20] MEDS: BENZONATATE 100 MG CAP PO PRN (00:34)
[2021-05-20 00:49] VITALS: BP 172/68
[2021-05-20] MEDS: IPRATROPIUM BROMIDE 0.02% 2.5 ML NEB NEB SCH ×3 (01:55→14:10)
[2021-05-20 05:37] VITALS: BP 156/81
[2021-05-20] MEDS ORDERED: ZITHROMAX500 MG PO (06:53)
[2021-05-20] MEDS ORDERED: PREDNISONE20 MG PO (06:53)
[2021-05-20] MEDS ORDERED: TESSALON PERLE100 MG PO (06:53)
[2021-05-20] MEDS ORDERED: CEPHALEXIN500 MG PO (06:53)
[2021-05-20] MEDS ORDERED: LORATADINE10 MG PO (06:53)
[2021-05-20] MEDS: FAMOTIDINE 20 MG TAB PO SCH (07:30)
[2021-05-20] MEDS: INSULIN LISPRO 100 UNIT/1 ML 3ML VIAL SQ SCH ×2 (07:30→11:30)
[2021-05-20] MEDS: LEVALBUTEROL HCL SOLN NEBU 0.63 MG/3 ML NEB INH SCH ×2 (07:50→14:10)
[2021-05-20 07:56] VITALS: BP 149/79
[2021-05-20] MEDS: BUDESONIDE 0.5MG/2 ML NEB INH SCH (08:05)
[2021-05-20 09:00] VITALS: BP 149/79
[2021-05-20] MEDS: IRON SUCROSE 100 MG in SODIUM CHLORIDE 0.9% 100 ML 100 ML IV SCH (09:00)
[2021-05-20] MEDS: LORATADINE/PSEUDOEPHEDRINE 24 HR SR TAB PO SCH (09:00)
[2021-05-20] MEDS: FOLIC ACID 1 MG TAB PO SCH (09:00)
[2021-05-20] MEDS: CEFEPIME 1 GM in SODIUM CHLORIDE 0.9% 50ML 50 ML IV SCH (09:00)
[2021-05-20] MEDS: FUROSEMIDE INJ 10 MG/ML 4 ML VIAL IV SCH (09:00)
[2021-05-20] MEDS: OLMESARTAN MEDOXOMIL 5 MG TABLET PO SCH (09:00)
[2021-05-20] MEDS: METHYLPREDNISOLONE SOD SUCC 40 MG/ML VIAL 1ML IV SCH (09:00)
[2021-05-20] MEDS: GABAPENTIN 300 MG CAP PO SCH (09:00)
[2021-05-20] MEDS: SPIRONOLACTONE 25 MG TAB PO SCH (09:00)
[2021-05-20] MEDS: SENNOSIDES 8.6 MG TAB PO SCH (09:00)
[2021-05-20] MEDS: DOCUSATE SODIUM 100 MG CAP PO SCH (09:00)
[2021-05-20] MEDS: FLUOXETINE HCL 20 MG CAP PO SCH (09:00)
[2021-05-20] MEDS: AZITHROMYCIN 250 MG TAB PO SCH (09:00)
[2021-05-20] MEDS: ASPIRIN 81 MG CHEW TAB PO SCH (09:00)
[2021-05-20] MEDS: CARVEDILOL 3.125 MG TAB PO SCH (09:00)
[2021-05-20 11:53] VITALS: BP 122/46
[2021-05-20] MEDS ORDERED: PANTOPRAZOLE SOD 40 MG TABEC PO SCH (21:00)
== END 2021-05-20 15:03 | disposition home health service (06) | DRG 291 ==
LOC: ER 11:56 → ERHOLD 11:57 → MED/SURG2 17:38 → OBSVTOIN 05-15 10:02
PROVIDERS: ADMIT Internal Medicine; ATTEND Internal Medicine
PROC: 02HV33Z Insertion of Infusion Device into Superior Vena Cava, Percutaneous Approach (ICD-10-PCS; principal; 2021-05-18)
DX: I13.0 Hypertensive heart and chronic kidney disease with heart failure and stage 1 through stage 4 chronic kidney disease, or unspecified chronic kidney disease (principal); J18.9 Pneumonia, unspecified organism; J96.01 Acute respiratory failure with hypoxia; I50.33 Acute on chronic diastolic (congestive) heart failure; J44.0 Chronic obstructive pulmonary disease with (acute) lower respiratory infection; J45.901 Unspecified asthma with (acute) exacerbation; J44.1 Chronic obstructive pulmonary disease with (acute) exacerbation; I25.10 Atherosclerotic heart disease of native coronary artery without angina pectoris; I48.0 Paroxysmal atrial fibrillation; Z79.01 Long term (current) use of anticoagulants; G47.33 Obstructive sleep apnea (adult) (pediatric); E78.5 Hyperlipidemia, unspecified; D64.9 Anemia, unspecified; K59.00 Constipation, unspecified; E11.22 Type 2 diabetes mellitus with diabetic chronic kidney disease; N18.9 Chronic kidney disease, unspecified; N18.30 Chronic kidney disease, stage 3 unspecified; E66.01 Morbid (severe) obesity due to excess calories; Z68.37 Body mass index [BMI] 37.0-37.9, adult; E53.8 Deficiency of other specified B group vitamins; E55.9 Vitamin D deficiency, unspecified; F32.9 Major depressive disorder, single episode, unspecified; Z20.822 Contact with and (suspected) exposure to COVID-19; R91.1 Solitary pulmonary nodule
CPT/HCPCS: 36415; 71045; 71046; 71250; 80048; 80053; 80061; 82607; 82746; 82948; 83036; 83540; 83735; 83880; 84466; 84484; 85025; 85045; 87070; 87205; 93005; 99284; G0378; J0692; J0696; J1756; J1940; J2920; U0002

== ENCOUNTER 2022-01-04 10:05 | Inpatient (IN) | payer MEDICARE ==
[~2022-01-04] VITALS: Ht 160 cm; Wt 99.3 kg
[~2022-01-04 10:05] MED LIST changes: +CEPHALEXIN500 MG PO; +PREDNISONE20 MG PO; +ZITHROMAX500 MG PO
[2022-01-04 10:38] LABS: BASOPHILS # (AUTO) 0.1 (0.0-0.1); BASOPHILS % 0.5 % (0.0-1.0); EOSINOPHILS # (AUTO) 1.8 (0.0-0.4); HEMATOCRIT 31.3 % (34.2-44.1); HEMOGLOBIN 10.4 g/dL (12.0-16.0); LYMPHOCYTES # (AUTO) 2.6 (1.0-3.2); LYMPHOCYTES % 17.8 % (18.0-39.1); MEAN CORPUSCULAR HEMOGLOBIN 29.7 pg (28-32); MEAN CORPUSCULAR HGB CONC 33.2 g/dL (31-35); MEAN CORPUSCULAR VOLUME 89.4 fL (81-99); MONOCYTES # (AUTO) 0.9 (0.2-0.8); MONOCYTES % 6.3 % (4.4-11.3); NEUTROPHILS # (AUTO) 9.3 (2.1-6.9); PLATELET COUNT 433 x10e3/uL (140-360); RED CELL DISTRIBUTION WIDTH 12.2 % (11.7-14.4)
[2022-01-04 10:43] LABS: ALBUMIN 3.1 g/dL (3.5-5.0); ALBUMIN/GLOBULIN RATIO 0.8 (0.8-2.0); ANION GAP 13.8 mmol/L (8-16); CALCIUM 8.5 mg/dL (8.4-10.2); CREATININE, SERUM 2.37 mg/dL (0.57-1.11); MAGNESIUM 1.8 MG/DL (1.3-2.1)
[2022-01-04 10:53] LABS: INR 1.62; PROTHROMBIN TIME 20.6 seconds (11.9-14.5)
[2022-01-04 10:58] LABS: POTASSIUM 2.8 mmol/L (3.5-5.1)
[2022-01-04] MEDS ORDERED: DEXAMETHASONE SOD PHOS 10 MG/1 ML VIAL IV ONE (11:00)
[2022-01-04] MEDS ORDERED: POTASSIUM CHLORIDE 10MEQ EA PO ONE ×2 (11:15→15:45)
[2022-01-04 11:18] LABS: CREATINE KINASE MB 1.4 ng/mL (0-5.0)
[2022-01-04] MEDS ORDERED: IPRATROPIUM BROMIDE 0.02% 2.5 ML NEB NEB ONE (11:30)
[2022-01-04] MEDS ORDERED: LEVALBUTEROL HCL SOLN NEBU 1.25 MG/3 ML NEB INH ONE (11:30)
[2022-01-04] MEDS ORDERED: KCL 20MEQ/.9 SOD CHL 1,000 ML IV ONE (12:45)
[2022-01-04 13:04] LABS: B-TYPE NATRIURETIC PEPTIDE2 72.9 pg/mL (0-100)
[2022-01-04 16:00] VITALS: BP_SYST 94; BP_DIAS 40; BP_DIAS 54
[2022-01-04] MEDS: LEVALBUTEROL HCL SOLN NEBU 0.63 MG/3 ML NEB INH SCH ×2 (16:45→19:40)
[2022-01-04] MEDS: IPRATROPIUM BROMIDE 0.02% 2.5 ML NEB NEB SCH ×2 (16:45→19:40)
[2022-01-04 17:00] VITALS: BP 106/64
[2022-01-04 18:00] VITALS: BP 101/54
[2022-01-04] MEDS: METHYLPREDNISOLONE SOD SUCC 125 MG/2ML VIAL IV SCH (18:09)
[2022-01-04] MEDS ORDERED: [UNRECOGNIZED DRUG - OTHER] (19:21)
[2022-01-04] MEDS ORDERED: ELIQUIS5 MG PO (19:21)
[2022-01-04] MEDS ORDERED: ATROVENT HFA12.9 GM INH (19:21)
[2022-01-04] MEDS ORDERED: ADVAIR 250-501 EACH INH (19:21)
[2022-01-04] MEDS ORDERED: RED (19:21)
[2022-01-04 19:34] LABS: CREATINE KINASE MB 1.6 ng/mL (0-5.0)
[2022-01-04 20:00] VITALS: BP 108/59
[2022-01-04] MEDS ORDERED: SODIUM CHLORIDE 0.9% 500ML 500 ML IV ONE (20:00)
[2022-01-04] MEDS: BUDESONIDE 0.25 MG/2 ML NEB NEB SCH (20:00)
[2022-01-04 20:37] VITALS: BP 108/59
[2022-01-04 23:49] LABS: CREATINE KINASE MB 1.9 ng/mL (0-5.0)
[2022-01-05] VITALS (8 sets, daily range): BP systolic 79–135; BP diastolic 58–81
[2022-01-05 00:21] LABS: ANION GAP 19.2 mmol/L (8-16); CALCIUM 7.7 mg/dL (8.4-10.2); CREATININE, SERUM 2.78 mg/dL (0.57-1.11); POTASSIUM 4.2 mmol/L (3.5-5.1)
[2022-01-05] MEDS: LEVALBUTEROL HCL SOLN NEBU 0.63 MG/3 ML NEB INH SCH ×7 (00:25→22:40)
[2022-01-05] MEDS: SODIUM CHLORIDE 0.9% 1000ML 1,000 ML IV SCH ×3 (02:21→12:51)
[2022-01-05] MEDS: METHYLPREDNISOLONE SOD SUCC 125 MG/2ML VIAL IV SCH (02:21)
[2022-01-05] MEDS: IPRATROPIUM BROMIDE 0.02% 2.5 ML NEB NEB SCH ×6 (04:00→22:40)
[2022-01-05 06:50] LABS: BASOPHILS % 0.1 % (0.0-1.0); EOSINOPHILS % 0.1 % (0.0-6.0); HEMOGLOBIN 9.3 g/dL (12.0-16.0); LYMPHOCYTES # (AUTO) 0.8 (1.0-3.2); LYMPHOCYTES % 5.5 % (18.0-39.1); MEAN CORPUSCULAR HEMOGLOBIN 29.2 pg (28-32); MEAN CORPUSCULAR HGB CONC 32.1 g/dL (31-35); MEAN CORPUSCULAR VOLUME 91.2 fL (81-99); MONOCYTES # (AUTO) 0.1 (0.2-0.8); MONOCYTES % 0.9 % (4.4-11.3); NEUTROPHILS # (AUTO) 12.8 (2.1-6.9); NEUTROPHILS % 92.4 % (38.7-80.0); PLATELET COUNT 347 x10e3/uL (140-360); RED BLOOD COUNT 3.18 x10e6/uL (3.6-5.1); RED CELL DISTRIBUTION WIDTH 11.9 % (11.7-14.4)
[2022-01-05 07:20] LABS: ALBUMIN 2.5 g/dL (3.5-5.0); ALBUMIN/GLOBULIN RATIO 0.6 (0.8-2.0); ANION GAP 18.9 mmol/L (8-16); CALCIUM 7.4 mg/dL (8.4-10.2); CREATININE, SERUM 2.43 mg/dL (0.57-1.11); POTASSIUM 3.9 mmol/L (3.5-5.1)
[2022-01-05 07:21] LABS: CREATINE KINASE MB 1.7 ng/mL (0-5.0)
[2022-01-05] MEDS: BUDESONIDE 0.25 MG/2 ML NEB NEB SCH ×2 (07:30→19:50)
[2022-01-05] MEDS ORDERED: NITROGLYCERIN 0.4 MG SUBL SL PRN (09:15)
[2022-01-05] MEDS ORDERED: ACETAMINOPHEN 325 MG TAB PO PRN (09:30)
[2022-01-05] MEDS ORDERED: DEXTROSE 50% SYRINGE 50 ML IV PRN (09:30)
[2022-01-05] MEDS ORDERED: ONDANSETRON HCL INJ 2MG/ML 2ML 2 MG/ML VIAL IV PRN (09:30)
[2022-01-05] MEDS: BENZONATATE 100 MG CAP PO PRN ×2 (10:09→19:46)
[2022-01-05] MEDS: APIXABAN 5 MG TABLET PO SCH ×2 (10:55→16:43)
[2022-01-05] MEDS: METHYLPREDNISOLONE SOD SUCC 40 MG/ML VIAL 1ML IV SCH ×2 (10:58→18:55)
[2022-01-05] MEDS: Doxycycline IV 100 MG in SODIUM CHLORIDE 0.9% 100 ML IV SCH (11:41)
[2022-01-05] MEDS: GUAIFENESIN/CODEINE 5 ML LIQD PO PRN ×2 (11:47→16:38)
[2022-01-05] MEDS: INSULIN REGULAR, HUMAN 100 UNIT/1 ML SQ SCH ×3 (12:43→21:00)
[2022-01-05] MEDS: GABAPENTIN 300 MG CAP PO SCH ×2 (14:20→21:26)
[2022-01-05] MEDS ORDERED: Vancomycin IV 1 GM in SODIUM CHLORIDE 0.9% 250ML 250 ML IV ONE (16:30)
[2022-01-05] MEDS: FAMOTIDINE 20 MG TAB PO SCH (16:41)
[2022-01-05] MEDS: ATORVASTATIN 40 MG TAB PO SCH (21:26)
[2022-01-06] VITALS (15 sets, daily range): BP systolic 100–158; BP diastolic 55–105
[2022-01-06] MEDS: INSULIN GLARGINE 100 UNITS/ML VIAL SQ SCH ×2 (00:44→19:46)
[2022-01-06] MEDS: Doxycycline IV 100 MG in SODIUM CHLORIDE 0.9% 100 ML IV SCH ×3 (01:02→23:00)
[2022-01-06] MEDS: SODIUM CHLORIDE 0.9% 1000ML 1,000 ML IV SCH ×2 (01:07→14:41)
[2022-01-06] MEDS: GUAIFENESIN/CODEINE 5 ML LIQD PO PRN ×3 (01:30→21:35)
[2022-01-06] MEDS: METHYLPREDNISOLONE SOD SUCC 40 MG/ML VIAL 1ML IV SCH ×3 (02:18→17:08)
[2022-01-06] MEDS: LEVALBUTEROL HCL SOLN NEBU 0.63 MG/3 ML NEB INH SCH ×6 (03:55→23:05)
[2022-01-06] MEDS: IPRATROPIUM BROMIDE 0.02% 2.5 ML NEB NEB SCH ×6 (03:55→23:05)
[2022-01-06 06:25] LABS: BASOPHILS % 0.2 % (0.0-1.0); EOSINOPHILS % 0.1 % (0.0-6.0); HEMOGLOBIN 9.8 g/dL (12.0-16.0); LYMPHOCYTES # (AUTO) 0.7 (1.0-3.2); LYMPHOCYTES % 3.5 % (18.0-39.1); MEAN CORPUSCULAR HEMOGLOBIN 29.3 pg (28-32); MEAN CORPUSCULAR HGB CONC 31.6 g/dL (31-35); MEAN CORPUSCULAR VOLUME 92.8 fL (81-99); MONOCYTES # (AUTO) 0.4 (0.2-0.8); NEUTROPHILS # (AUTO) 18.5 (2.1-6.9); NEUTROPHILS % 92.6 % (38.7-80.0); PLATELET COUNT 400 x10e3/uL (140-360); RED BLOOD COUNT 3.34 x10e6/uL (3.6-5.1); RED CELL DISTRIBUTION WIDTH 12.3 % (11.7-14.4)
[2022-01-06 06:54] LABS: ANION GAP 14.7 mmol/L (8-16); CREATININE, SERUM 1.25 mg/dL (0.57-1.11); POTASSIUM 4.7 mmol/L (3.5-5.1)
[2022-01-06 06:56] LABS: MAGNESIUM 1.9 MG/DL (1.3-2.1); PHOSPHORUS 3.1 MG/DL (2.3-4.7)
[2022-01-06 07:18] LABS: THYROID STIMULATING HORMONE 0.191 uIU/mL (0.350-4.940)
[2022-01-06] MEDS: INSULIN REGULAR, HUMAN 100 UNIT/1 ML SQ SCH ×4 (07:30→19:41)
[2022-01-06] MEDS: BUDESONIDE 0.25 MG/2 ML NEB NEB SCH ×2 (07:30→19:35)
[2022-01-06] MEDS: FAMOTIDINE 20 MG TAB PO SCH ×2 (07:53→17:03)
[2022-01-06] MEDS: APIXABAN 5 MG TABLET PO SCH ×2 (08:05→17:03)
[2022-01-06] MEDS: GABAPENTIN 300 MG CAP PO SCH ×3 (08:05→21:23)
[2022-01-06] MEDS: BENZONATATE 100 MG CAP PO PRN (08:06)
[2022-01-06] MEDS: FLUOXETINE HCL 20 MG CAP PO SCH (08:06)
[2022-01-06] MEDS: ACETYLCYSTEINE 20% INHAL SOLN 30 ML VIAL INH SCH ×3 (11:00→19:35)
[2022-01-06] MEDS: ATORVASTATIN 40 MG TAB PO SCH (21:23)
[2022-01-07] VITALS (17 sets, daily range): BP systolic 123–210; BP diastolic 78–149
[2022-01-07] MEDS: METHYLPREDNISOLONE SOD SUCC 40 MG/ML VIAL 1ML IV SCH ×3 (01:56→17:32)
[2022-01-07] MEDS: BENZONATATE 100 MG CAP PO PRN ×3 (01:56→18:33)
[2022-01-07] MEDS: IPRATROPIUM BROMIDE 0.02% 2.5 ML NEB NEB SCH ×6 (05:15→23:45)
[2022-01-07] MEDS: LEVALBUTEROL HCL SOLN NEBU 0.63 MG/3 ML NEB INH SCH ×6 (05:15→23:45)
[2022-01-07] MEDS: BUDESONIDE 0.25 MG/2 ML NEB NEB SCH ×2 (07:00→23:45)
[2022-01-07] MEDS: INSULIN REGULAR, HUMAN 100 UNIT/1 ML SQ SCH ×4 (08:03→21:34)
[2022-01-07] MEDS: APIXABAN 5 MG TABLET PO SCH ×2 (08:20→17:31)
[2022-01-07] MEDS: GABAPENTIN 300 MG CAP PO SCH ×3 (08:20→21:33)
[2022-01-07] MEDS: FAMOTIDINE 20 MG TAB PO SCH ×2 (08:20→17:15)
[2022-01-07] MEDS: FLUOXETINE HCL 20 MG CAP PO SCH (08:20)
[2022-01-07] MEDS: ACETYLCYSTEINE 20% INHAL SOLN 30 ML VIAL INH SCH ×3 (08:30→19:45)
[2022-01-07] MEDS: GUAIFENESIN/CODEINE 5 ML LIQD PO PRN ×4 (09:15→21:34)
[2022-01-07] MEDS: SODIUM CHLORIDE 0.9% 1000ML 1,000 ML IV SCH (10:05)
[2022-01-07] MEDS ORDERED: CARVEDILOL 12.5 MG TAB PO SCH (10:30)
[2022-01-07] MEDS: FUROSEMIDE INJ 10 MG/ML 4 ML VIAL IV NR ×2 (10:45→11:20)
[2022-01-07] MEDS: Doxycycline IV 100 MG in SODIUM CHLORIDE 0.9% 100 ML IV SCH ×2 (11:19→23:14)
[2022-01-07] MEDS: METOPROLOL TARTRATE 25 MG TAB PO SCH ×2 (11:58→17:32)
[2022-01-07 12:32] LABS: CLARITY,URINE CLEAR (CLEAR); COLOR,URINE YELLOW (YELLOW); KETONES,URINE NEGATIVE (NEGATIVE); LEUKOCYTE ESTERASE ,URINE NEGATIVE (NEGATIVE); NITRITE,URINE NEGATIVE (NEGATIVE); PROTEIN,URINE DIPSTICK NEGATIVE (NEGATIVE); RBC,URINE 0-5 /HPF (0-5); URINE UROBILINOGEN 0.2 mg/dL (0.2 - 1); WBC,URINE (MAN) 0-5 /HPF (0-5)
[2022-01-07 12:33] LABS: BACTERIA,URINE FEW /HPF; EPITHELIAL CELLS,URINE FEW /LPF
[2022-01-07 12:57] LABS: CREATININE,URINE RANDOM 5.69 mg/dL (47-110)
[2022-01-07 15:51] LABS: ABG PCO2 51 mmHg (35-45); ABG PH 7.35 (7.35-7.45)
[2022-01-07 15:52] LABS: ABG HCO3 28 mmol/L (22-26); ABG PO2 108 mmHg (80-105); ABG TCO2 30
[2022-01-07] MEDS ORDERED: VALSARTAN/SACUBITRIL 24MG/26MG 1 EA TAB PO SCH (20:45)
[2022-01-07] MEDS: ATORVASTATIN 40 MG TAB PO SCH (21:33)
[2022-01-07] MEDS: VALSARTAN 80 MG TAB PO SCH (21:33)
[2022-01-07] MEDS: HYDRALAZINE HCL 10 MG TAB PO PRN (21:34)
[2022-01-07] MEDS: INSULIN GLARGINE 100 UNITS/ML VIAL SQ SCH (21:35)
[2022-01-08] VITALS (21 sets, daily range): BP systolic 133–181; BP diastolic 56–162
[2022-01-08] MEDS: METHYLPREDNISOLONE SOD SUCC 40 MG/ML VIAL 1ML IV SCH ×3 (02:13→16:58)
[2022-01-08] MEDS: GUAIFENESIN/CODEINE 5 ML LIQD PO PRN ×3 (02:13→20:08)
[2022-01-08] MEDS: BENZONATATE 100 MG CAP PO PRN ×3 (02:13→20:08)
[2022-01-08] MEDS: NIFEDIPINE CR 30 MG TAB PO PRN ×2 (02:13→20:08)
[2022-01-08] MEDS: IPRATROPIUM BROMIDE 0.02% 2.5 ML NEB NEB SCH ×6 (03:45→23:08)
[2022-01-08] MEDS: ACETYLCYSTEINE 20% INHAL SOLN 30 ML VIAL INH SCH ×2 (03:45→07:00)
[2022-01-08] MEDS: LEVALBUTEROL HCL SOLN NEBU 0.63 MG/3 ML NEB INH SCH ×6 (03:45→23:04)
[2022-01-08 05:25] LABS: BASOPHILS % 0.2 % (0.0-1.0); EOSINOPHILS % 0.1 % (0.0-6.0); HEMATOCRIT 32.7 % (34.2-44.1); HEMOGLOBIN 10.2 g/dL (12.0-16.0); LYMPHOCYTES # (AUTO) 1.5 (1.0-3.2); LYMPHOCYTES % 8.7 % (18.0-39.1); MEAN CORPUSCULAR HGB CONC 31.2 g/dL (31-35); MEAN CORPUSCULAR VOLUME 92.9 fL (81-99); MONOCYTES # (AUTO) 0.7 (0.2-0.8); MONOCYTES % 4.3 % (4.4-11.3); NEUTROPHILS # (AUTO) 13.7 (2.1-6.9); NEUTROPHILS % 81.9 % (38.7-80.0); PLATELET COUNT 387 x10e3/uL (140-360); RED BLOOD COUNT 3.52 x10e6/uL (3.6-5.1); RED CELL DISTRIBUTION WIDTH 12.5 % (11.7-14.4)
[2022-01-08 05:48] LABS: ALBUMIN 2.6 g/dL (3.5-5.0); ALBUMIN/GLOBULIN RATIO 0.7 (0.8-2.0); ANION GAP 11.5 mmol/L (8-16); CALCIUM 8.9 mg/dL (8.4-10.2); CREATININE, SERUM 0.99 mg/dL (0.57-1.11); MAGNESIUM 1.7 MG/DL (1.3-2.1); POTASSIUM 4.5 mmol/L (3.5-5.1)
[2022-01-08 06:02] LABS: PHOSPHORUS 2.2 MG/DL (2.3-4.7)
[2022-01-08] MEDS: BUDESONIDE 0.25 MG/2 ML NEB NEB SCH ×2 (07:10→19:30)
[2022-01-08] MEDS: INSULIN REGULAR, HUMAN 100 UNIT/1 ML SQ SCH ×4 (07:30→21:15)
[2022-01-08] MEDS: FAMOTIDINE 20 MG TAB PO SCH ×2 (08:08→15:46)
[2022-01-08] MEDS: GABAPENTIN 300 MG CAP PO SCH ×3 (08:08→21:05)
[2022-01-08] MEDS: APIXABAN 5 MG TABLET PO SCH ×2 (08:08→16:58)
[2022-01-08] MEDS: METOPROLOL TARTRATE 25 MG TAB PO SCH ×2 (08:08→16:58)
[2022-01-08] MEDS: FLUOXETINE HCL 20 MG CAP PO SCH (08:09)
[2022-01-08] MEDS ORDERED: MAGNESIUM SULFATE 2GM/50ML IV ONE (09:15)
[2022-01-08] MEDS ORDERED: POTASSIUM PHOSPHATE 10 MM in SODIUM CHLORIDE 0.9% 250ML 250 ML IV ONE (12:00)
[2022-01-08] MEDS: VALSARTAN 80 MG TAB PO SCH (12:04)
[2022-01-08] MEDS: FUROSEMIDE INJ 10 MG/ML 2 ML VIAL IV SCH (12:29)
[2022-01-08] MEDS: DOXYCYCLINE HYCLATE TABLET 100 MG TAB PO SCH (16:58)
[2022-01-08] MEDS ORDERED: ACETYLCYSTEINE 200 MG/ML 4ML VIAL INH SCH (17:00)
[2022-01-08] MEDS: ACETYLCYSTEINE 200 MG/ML 4ML VIAL INH SCH (19:18)
[2022-01-08] MEDS: ATORVASTATIN 40 MG TAB PO SCH (21:05)
[2022-01-08] MEDS: INSULIN GLARGINE 100 UNITS/ML VIAL SQ SCH (21:16)
[2022-01-09] VITALS (12 sets, daily range): BP systolic 148–186; BP diastolic 62–85
[2022-01-09] MEDS: IPRATROPIUM BROMIDE 0.02% 2.5 ML NEB NEB SCH ×6 (03:00→23:30)
[2022-01-09 05:38] LABS: BASOPHILS % 0.2 % (0.0-1.0); EOSINOPHILS % 0.1 % (0.0-6.0); HEMATOCRIT 32.8 % (34.2-44.1); HEMOGLOBIN 10.4 g/dL (12.0-16.0); LYMPHOCYTES # (AUTO) 2.3 (1.0-3.2); LYMPHOCYTES % 14.1 % (18.0-39.1); MEAN CORPUSCULAR HEMOGLOBIN 29.5 pg (28-32); MEAN CORPUSCULAR HGB CONC 31.7 g/dL (31-35); MEAN CORPUSCULAR VOLUME 92.9 fL (81-99); MONOCYTES # (AUTO) 1.3 (0.2-0.8); MONOCYTES % 7.7 % (4.4-11.3); NEUTROPHILS # (AUTO) 12.1 (2.1-6.9); NEUTROPHILS % 74.7 % (38.7-80.0); PLATELET COUNT 397 x10e3/uL (140-360); RED BLOOD COUNT 3.53 x10e6/uL (3.6-5.1); RED CELL DISTRIBUTION WIDTH 12.5 % (11.7-14.4)
[2022-01-09 05:53] LABS: ANION GAP 11.3 mmol/L (8-16); CREATININE, SERUM 0.92 mg/dL (0.57-1.11); POTASSIUM 4.3 mmol/L (3.5-5.1)
[2022-01-09] MEDS: BUDESONIDE 0.25 MG/2 ML NEB NEB SCH ×2 (07:00→19:37)
[2022-01-09] MEDS: ACETYLCYSTEINE 200 MG/ML 4ML VIAL INH SCH ×2 (07:15→19:37)
[2022-01-09] MEDS: LEVALBUTEROL HCL SOLN NEBU 0.63 MG/3 ML NEB INH SCH ×5 (07:15→23:30)
[2022-01-09] MEDS: FAMOTIDINE 20 MG TAB PO SCH ×2 (07:19→16:32)
[2022-01-09] MEDS: INSULIN REGULAR, HUMAN 100 UNIT/1 ML SQ SCH ×4 (07:20→21:00)
[2022-01-09] MEDS: VALSARTAN 80 MG TAB PO SCH ×2 (08:40→16:32)
[2022-01-09] MEDS: METOPROLOL TARTRATE 25 MG TAB PO SCH ×2 (08:40→16:33)
[2022-01-09] MEDS: FLUOXETINE HCL 20 MG CAP PO SCH (08:40)
[2022-01-09] MEDS: FUROSEMIDE INJ 10 MG/ML 2 ML VIAL IV SCH (08:40)
[2022-01-09] MEDS: APIXABAN 5 MG TABLET PO SCH ×2 (08:40→16:33)
[2022-01-09] MEDS: METHYLPREDNISOLONE SOD SUCC 40 MG/ML VIAL 1ML IV SCH ×2 (08:40→16:32)
[2022-01-09] MEDS: GABAPENTIN 300 MG CAP PO SCH ×3 (08:40→21:25)
[2022-01-09] MEDS: DOXYCYCLINE HYCLATE TABLET 100 MG TAB PO SCH ×2 (08:40→16:33)
[2022-01-09] MEDS: BENZONATATE 100 MG CAP PO PRN ×2 (08:41→21:55)
[2022-01-09] MEDS: GUAIFENESIN/CODEINE 5 ML LIQD PO PRN ×2 (08:41→21:55)
[2022-01-09] MEDS: INSULIN GLARGINE 100 UNITS/ML VIAL SQ SCH (21:00)
[2022-01-09] MEDS: ATORVASTATIN 40 MG TAB PO SCH (21:25)
[2022-01-10] VITALS (8 sets, daily range): BP systolic 145–175; BP diastolic 58–92
[2022-01-10] MEDS: LEVALBUTEROL HCL SOLN NEBU 0.63 MG/3 ML NEB INH SCH ×6 (03:10→23:45)
[2022-01-10] MEDS: IPRATROPIUM BROMIDE 0.02% 2.5 ML NEB NEB SCH ×6 (03:10→23:45)
[2022-01-10] MEDS: ACETYLCYSTEINE 200 MG/ML 4ML VIAL INH SCH ×2 (06:46→19:20)
[2022-01-10] MEDS: BUDESONIDE 0.25 MG/2 ML NEB NEB SCH ×2 (06:46→19:20)
[2022-01-10] MEDS ORDERED: SODIUM CHLORIDE 0.9% 250ML 250 ML ONE (07:32)
[2022-01-10] MEDS: FAMOTIDINE 20 MG TAB PO SCH ×2 (08:52→16:39)
[2022-01-10] MEDS: METHYLPREDNISOLONE SOD SUCC 40 MG/ML VIAL 1ML IV SCH ×2 (08:52→16:39)
[2022-01-10] MEDS: FUROSEMIDE INJ 10 MG/ML 2 ML VIAL IV SCH (08:52)
[2022-01-10] MEDS: GABAPENTIN 300 MG CAP PO SCH ×3 (08:53→21:42)
[2022-01-10] MEDS: VALSARTAN 80 MG TAB PO SCH ×2 (08:53→16:39)
[2022-01-10] MEDS: METOPROLOL TARTRATE 25 MG TAB PO SCH ×2 (08:53→16:40)
[2022-01-10] MEDS: DOXYCYCLINE HYCLATE TABLET 100 MG TAB PO SCH ×2 (08:53→16:40)
[2022-01-10] MEDS: FLUOXETINE HCL 20 MG CAP PO SCH (08:53)
[2022-01-10] MEDS: APIXABAN 5 MG TABLET PO SCH ×2 (08:53→16:40)
[2022-01-10] MEDS: INSULIN REGULAR, HUMAN 100 UNIT/1 ML SQ SCH ×4 (08:54→21:43)
[2022-01-10] MEDS: CEPACOL SORE THROAT LOZENGES PO PRN (16:00)
[2022-01-10] MEDS: ATORVASTATIN 40 MG TAB PO SCH (21:42)
[2022-01-10] MEDS: INSULIN GLARGINE 100 UNITS/ML VIAL SQ SCH (21:43)
[2022-01-10] MEDS: BENZONATATE 100 MG CAP PO PRN (22:31)
[2022-01-11] VITALS (8 sets, daily range): BP systolic 171–194; BP diastolic 74–94
[2022-01-11] MEDS: LEVALBUTEROL HCL SOLN NEBU 0.63 MG/3 ML NEB INH SCH ×5 (03:05→20:10)
[2022-01-11] MEDS: IPRATROPIUM BROMIDE 0.02% 2.5 ML NEB NEB SCH ×5 (03:05→20:10)
[2022-01-11] MEDS: HYDRALAZINE HCL 10 MG TAB PO PRN (06:18)
[2022-01-11] MEDS: BUDESONIDE 0.25 MG/2 ML NEB NEB SCH ×2 (07:00→20:10)
[2022-01-11] MEDS: ACETYLCYSTEINE 200 MG/ML 4ML VIAL INH SCH ×2 (07:00→20:10)
[2022-01-11] MEDS: INSULIN REGULAR, HUMAN 100 UNIT/1 ML SQ SCH ×4 (07:30→21:00)
[2022-01-11 08:47] LABS: BASOPHILS # (AUTO) 0.1 (0.0-0.1); BASOPHILS % 0.2 % (0.0-1.0); EOSINOPHILS # (AUTO) 0.1 (0.0-0.4); EOSINOPHILS % 0.6 % (0.0-6.0); HEMOGLOBIN 11.4 g/dL (12.0-16.0); LYMPHOCYTES # (AUTO) 3.8 (1.0-3.2); LYMPHOCYTES % 18.7 % (18.0-39.1); MEAN CORPUSCULAR HEMOGLOBIN 29.4 pg (28-32); MEAN CORPUSCULAR HGB CONC 31.7 g/dL (31-35); MEAN CORPUSCULAR VOLUME 92.8 fL (81-99); MONOCYTES # (AUTO) 1.7 (0.2-0.8); MONOCYTES % 8.2 % (4.4-11.3); NEUTROPHILS # (AUTO) 13.9 (2.1-6.9); NEUTROPHILS % 68.7 % (38.7-80.0); PLATELET COUNT 368 x10e3/uL (140-360); RED BLOOD COUNT 3.88 x10e6/uL (3.6-5.1); RED CELL DISTRIBUTION WIDTH 12.6 % (11.7-14.4)
[2022-01-11] MEDS: VALSARTAN 80 MG TAB PO SCH ×2 (09:05→17:25)
[2022-01-11] MEDS: FUROSEMIDE INJ 10 MG/ML 2 ML VIAL IV SCH (09:05)
[2022-01-11] MEDS: METHYLPREDNISOLONE SOD SUCC 40 MG/ML VIAL 1ML IV SCH ×2 (09:05→17:25)
[2022-01-11] MEDS: FAMOTIDINE 20 MG TAB PO SCH ×2 (09:05→16:46)
[2022-01-11] MEDS: APIXABAN 5 MG TABLET PO SCH ×2 (09:05→17:25)
[2022-01-11] MEDS: DOXYCYCLINE HYCLATE TABLET 100 MG TAB PO SCH ×2 (09:06→17:26)
[2022-01-11] MEDS: GABAPENTIN 300 MG CAP PO SCH ×3 (09:06→21:39)
[2022-01-11] MEDS: METOPROLOL TARTRATE 25 MG TAB PO SCH ×2 (09:06→17:26)
[2022-01-11] MEDS: FLUOXETINE HCL 20 MG CAP PO SCH (09:06)
[2022-01-11 09:15] LABS: ANION GAP 13.3 mmol/L (8-16); CREATININE, SERUM 1.02 mg/dL (0.57-1.11); POTASSIUM 4.3 mmol/L (3.5-5.1)
[2022-01-11] MEDS: NIFEDIPINE CR 30 MG TAB PO SCH ×2 (11:47→17:26)
[2022-01-11] MEDS: GUAIFENESIN/CODEINE 5 ML LIQD PO PRN (17:54)
[2022-01-11] MEDS: INSULIN GLARGINE 100 UNITS/ML VIAL SQ SCH (21:00)
[2022-01-11] MEDS: ATORVASTATIN 40 MG TAB PO SCH (21:39)
[2022-01-11] MEDS: CEPACOL SORE THROAT LOZENGES PO PRN (21:46)
[2022-01-11] MEDS: BENZONATATE 100 MG CAP PO PRN (21:46)
[2022-01-12] VITALS (8 sets, daily range): BP systolic 151–189; BP diastolic 62–81
[2022-01-12] MEDS: IPRATROPIUM BROMIDE 0.02% 2.5 ML NEB NEB SCH ×7 (00:05→22:40)
[2022-01-12] MEDS: LEVALBUTEROL HCL SOLN NEBU 0.63 MG/3 ML NEB INH SCH ×7 (00:05→22:40)
[2022-01-12 06:16] LABS: BASOPHILS % 0.2 % (0.0-1.0); EOSINOPHILS % 0.1 % (0.0-6.0); HEMATOCRIT 33.2 % (34.2-44.1); HEMOGLOBIN 10.3 g/dL (12.0-16.0); MEAN CORPUSCULAR HEMOGLOBIN 28.8 pg (28-32); MEAN CORPUSCULAR VOLUME 92.7 fL (81-99); MONOCYTES # (AUTO) 1.3 (0.2-0.8); NEUTROPHILS # (AUTO) 14.1 (2.1-6.9); NEUTROPHILS % 78.8 % (38.7-80.0); PLATELET COUNT 320 x10e3/uL (140-360); RED BLOOD COUNT 3.58 x10e6/uL (3.6-5.1); RED CELL DISTRIBUTION WIDTH 12.6 % (11.7-14.4)
[2022-01-12] MEDS: FAMOTIDINE 20 MG TAB PO SCH ×2 (06:18→16:33)
[2022-01-12] MEDS: GUAIFENESIN/CODEINE 5 ML LIQD PO PRN (06:18)
[2022-01-12] MEDS: BUDESONIDE 0.25 MG/2 ML NEB NEB SCH ×2 (06:45→19:35)
[2022-01-12] MEDS: ACETYLCYSTEINE 200 MG/ML 4ML VIAL INH SCH ×2 (06:45→19:35)
[2022-01-12 06:47] LABS: ANION GAP 12.5 mmol/L (8-16); CALCIUM 8.8 mg/dL (8.4-10.2); CREATININE, SERUM 0.91 mg/dL (0.57-1.11); POTASSIUM 4.5 mmol/L (3.5-5.1)
[2022-01-12] MEDS: INSULIN REGULAR, HUMAN 100 UNIT/1 ML SQ SCH ×4 (07:30→21:00)
[2022-01-12] MEDS: VALSARTAN 80 MG TAB PO SCH (09:46)
[2022-01-12] MEDS: APIXABAN 5 MG TABLET PO SCH ×2 (09:46→16:35)
[2022-01-12] MEDS: METHYLPREDNISOLONE SOD SUCC 40 MG/ML VIAL 1ML IV SCH ×2 (09:46→16:35)
[2022-01-12] MEDS: FUROSEMIDE INJ 10 MG/ML 2 ML VIAL IV SCH (09:46)
[2022-01-12] MEDS: METOPROLOL TARTRATE 25 MG TAB PO SCH ×2 (09:47→16:35)
[2022-01-12] MEDS: FLUOXETINE HCL 20 MG CAP PO SCH (09:47)
[2022-01-12] MEDS: GABAPENTIN 300 MG CAP PO SCH ×3 (09:47→22:08)
[2022-01-12] MEDS: DOXYCYCLINE HYCLATE TABLET 100 MG TAB PO SCH ×2 (09:47→16:35)
[2022-01-12] MEDS: NIFEDIPINE CR 30 MG TAB PO SCH ×2 (09:47→16:35)
[2022-01-12] MEDS: VALSARTAN 160 MG TAB PO SCH (16:36)
[2022-01-12] MEDS ORDERED: GUAIFENESIN/CODEINE 5 ML LIQD PO PRN (20:15)
[2022-01-12] MEDS: INSULIN GLARGINE 100 UNITS/ML VIAL SQ SCH (21:00)
[2022-01-12] MEDS: ATORVASTATIN 40 MG TAB PO SCH (22:08)
[2022-01-13] VITALS (8 sets, daily range): BP systolic 138–161; BP diastolic 61–85
[2022-01-13] MEDS: LEVALBUTEROL HCL SOLN NEBU 0.63 MG/3 ML NEB INH SCH ×6 (03:05→23:30)
[2022-01-13] MEDS: IPRATROPIUM BROMIDE 0.02% 2.5 ML NEB NEB SCH ×6 (03:05→23:30)
[2022-01-13] MEDS: VALSARTAN 80 MG TAB PO SCH (06:27)
[2022-01-13] MEDS: FAMOTIDINE 20 MG TAB PO SCH ×2 (06:27→16:16)
[2022-01-13] MEDS: BUDESONIDE 0.25 MG/2 ML NEB NEB SCH ×2 (07:04→19:00)
[2022-01-13] MEDS: INSULIN REGULAR, HUMAN 100 UNIT/1 ML SQ SCH ×4 (07:30→21:00)
[2022-01-13] MEDS: NIFEDIPINE CR 30 MG TAB PO SCH ×2 (09:00→16:16)
[2022-01-13] MEDS: METOPROLOL TARTRATE 25 MG TAB PO SCH ×2 (09:00→16:16)
[2022-01-13] MEDS: GABAPENTIN 300 MG CAP PO SCH ×3 (09:00→21:49)
[2022-01-13] MEDS: DOXYCYCLINE HYCLATE TABLET 100 MG TAB PO SCH ×2 (09:00→16:17)
[2022-01-13] MEDS: FLUOXETINE HCL 20 MG CAP PO SCH (09:00)
[2022-01-13] MEDS: FUROSEMIDE INJ 10 MG/ML 2 ML VIAL IV SCH (09:00)
[2022-01-13] MEDS: APIXABAN 5 MG TABLET PO SCH ×2 (09:00→16:16)
[2022-01-13] MEDS: METHYLPREDNISOLONE SOD SUCC 40 MG/ML VIAL 1ML IV SCH ×2 (09:00→16:48)
[2022-01-13] MEDS: ACETYLCYSTEINE 200 MG/ML 4ML VIAL INH SCH ×2 (11:15→19:15)
[2022-01-13] MEDS: VALSARTAN 160 MG TAB PO SCH (17:33)
[2022-01-13] MEDS: INSULIN GLARGINE 100 UNITS/ML VIAL SQ SCH (21:00)
[2022-01-13] MEDS: ATORVASTATIN 40 MG TAB PO SCH (21:49)
[2022-01-14] VITALS: BP 156/64
[2022-01-14] MEDS: LEVALBUTEROL HCL SOLN NEBU 0.63 MG/3 ML NEB INH SCH ×4 (03:00→14:44)
[2022-01-14] MEDS: IPRATROPIUM BROMIDE 0.02% 2.5 ML NEB NEB SCH ×4 (03:00→14:44)
[2022-01-14 04:00] VITALS: BP 141/62
[2022-01-14] MEDS: CEPACOL SORE THROAT LOZENGES PO PRN (04:55)
[2022-01-14] MEDS: BUDESONIDE 0.25 MG/2 ML NEB NEB SCH (07:00)
[2022-01-14] MEDS: INSULIN REGULAR, HUMAN 100 UNIT/1 ML SQ SCH ×2 (07:30→11:30)
[2022-01-14] MEDS: VALSARTAN 80 MG TAB PO SCH (07:30)
[2022-01-14] MEDS: FAMOTIDINE 20 MG TAB PO SCH (07:30)
[2022-01-14 08:12] VITALS: BP 140/79
[2022-01-14] MEDS: ACETYLCYSTEINE 200 MG/ML 4ML VIAL INH SCH (08:17)
[2022-01-14] MEDS: METOPROLOL TARTRATE 25 MG TAB PO SCH (09:00)
[2022-01-14] MEDS: DOXYCYCLINE HYCLATE TABLET 100 MG TAB PO SCH (09:00)
[2022-01-14] MEDS: FUROSEMIDE INJ 10 MG/ML 2 ML VIAL IV SCH (09:00)
[2022-01-14] MEDS: GABAPENTIN 300 MG CAP PO SCH (09:00)
[2022-01-14] MEDS: NIFEDIPINE CR 30 MG TAB PO SCH (09:00)
[2022-01-14] MEDS: FLUOXETINE HCL 20 MG CAP PO SCH (09:00)
[2022-01-14] MEDS: APIXABAN 5 MG TABLET PO SCH (09:00)
[2022-01-14] MEDS: METHYLPREDNISOLONE SOD SUCC 40 MG/ML VIAL 1ML IV SCH (09:00)
[2022-01-14 09:20] VITALS: BP 140/79
[2022-01-14] MEDS ORDERED: MEDROL DOSE PACK (11:35)
[2022-01-14] MEDS ORDERED: METOPROLOL TART25 MG PO (11:36)
[2022-01-14] MEDS ORDERED: METOPROLOL TART50 MG PO (11:36)
[2022-01-14] MEDS ORDERED: DOXYCYCLINE HY100 MG PO (11:37)
[2022-01-14] MEDS ORDERED: MUCINEX600 MG PO (11:37)
[2022-01-14] MEDS ORDERED: XOPENEX0.63 MG/3 INH (11:38)
[2022-01-14 12:16] VITALS: BP 158/73
== END 2022-01-14 03:15 | disposition home or self-care (01) | DRG 871 ==
LOC: ER 10:58 → ERHOLD 12:38 → ICU 15:10 → MED/SURG2 01-07 04:28 → ICU 01-07 07:02 → MED/SURG2 01-09 11:40
PROVIDERS: ADMIT Internal Medicine; ATTEND Internal Medicine
PROC: 3E03329 Introduction of Other Anti-infective into Peripheral Vein, Percutaneous Approach (ICD-10-PCS; 2022-01-04)
PROC: 5A09357 Assistance with Respiratory Ventilation, Less than 24 Consecutive Hours, Continuous Positive Airway Pressure (ICD-10-PCS; principal; 2022-01-05)
DX: A41.9 Sepsis, unspecified organism (principal); J18.9 Pneumonia, unspecified organism; N17.0 Acute kidney failure with tubular necrosis; J44.0 Chronic obstructive pulmonary disease with (acute) lower respiratory infection; I13.0 Hypertensive heart and chronic kidney disease with heart failure and stage 1 through stage 4 chronic kidney disease, or unspecified chronic kidney disease; I50.32 Chronic diastolic (congestive) heart failure; J44.1 Chronic obstructive pulmonary disease with (acute) exacerbation; J45.902 Unspecified asthma with status asthmaticus; I48.20 Chronic atrial fibrillation, unspecified; R65.20 Severe sepsis without septic shock; I27.22 Pulmonary hypertension due to left heart disease; T17.990A Other foreign object in respiratory tract, part unspecified in causing asphyxiation, initial encounter; E11.22 Type 2 diabetes mellitus with diabetic chronic kidney disease; E11.42 Type 2 diabetes mellitus with diabetic polyneuropathy; Z99.81 Dependence on supplemental oxygen; N18.30 Chronic kidney disease, stage 3 unspecified; I25.10 Atherosclerotic heart disease of native coronary artery without angina pectoris; E86.0 Dehydration; G47.33 Obstructive sleep apnea (adult) (pediatric); E87.6 Hypokalemia; E66.9 Obesity, unspecified; R06.89 Other abnormalities of breathing; Z68.38 Body mass index [BMI] 38.0-38.9, adult; D64.9 Anemia, unspecified; Z79.84 Long term (current) use of oral hypoglycemic drugs; Z88.0 Allergy status to penicillin; Z88.8 Allergy status to other drugs, medicaments and biological substances; Z77.22 Contact with and (suspected) exposure to environmental tobacco smoke (acute) (chronic)
CPT/HCPCS: 36415; 36600; 71045; 71046; 71250; 74176; 74230; 76770; 80048; 80053; 81001; 82550; 82553; 82570; 82607; 82746; 82785; 82805; 82948; 83036; 83540; 83605; 83735; 83880; 84100; 84156; 84300; 84443; 84466; 84484; 85025; 85610; 85730; 86001; 86003; 87040; 87070; 87071; 87205; 93005; 94640; 94660; 94667; 94668; 94669; 94760; 94799; 96361; 96372; 97139; 99285; J0456; J0692; J0696; J1100; J1815; J1817; J1940; J2405; J2920; J2930; J3370; J3475; J7030; J7050; U0002

== ENCOUNTER 2023-09-07 12:57 | Inpatient (IN) | payer MEDICARE ==
[~2023-09-07] VITALS: Ht 160 cm; Wt 89.4 kg
[~2023-09-07 12:57] MED LIST changes: +ADVAIR 250-501 EACH INH; +ATROVENT HFA12.9 GM INH; +DOXYCYCLINE HY100 MG PO; +ELIQUIS5 MG PO; +MEDROL DOSE PACK; +METOPROLOL TART25 MG PO; +METOPROLOL TART50 MG PO; +MUCINEX600 MG PO; +RED; +XOPENEX0.63 MG/3 INH; +[UNRECOGNIZED DRUG - OTHER]
[2023-09-07] MEDS ORDERED: SODIUM CHLORIDE 0.9% 1000ML 1,000 ML IV ONE (14:00)
[2023-09-07 14:01] LABS: BASOPHILS # (AUTO) 0.1 (0.0-0.1); BASOPHILS % 0.8 % (0.0-1.0); EOSINOPHILS # (AUTO) 1.3 (0.0-0.4); EOSINOPHILS % 9.7 % (0.0-6.0); HEMATOCRIT 35.7 % (34.2-44.1); HEMOGLOBIN 11.8 g/dL (12.0-16.0); LYMPHOCYTES # (AUTO) 3.4 (1.0-3.2); LYMPHOCYTES % 26.3 % (18.0-39.1); MEAN CORPUSCULAR HEMOGLOBIN 31.1 pg (28-32); MEAN CORPUSCULAR HGB CONC 33.1 g/dL (31-35); MEAN CORPUSCULAR VOLUME 93.9 fL (81-99); MONOCYTES # (AUTO) 0.7 (0.2-0.8); NEUTROPHILS # (AUTO) 7.5 (2.1-6.9); NEUTROPHILS % 57.9 % (38.7-80.0); PLATELET COUNT 289 x10e3/uL (140-360); WHITE BLOOD COUNT 12.96 x10e3/uL (4.8-10.8)
[2023-09-07 14:06] LABS: INR 2.16; PROTHROMBIN TIME 24.5 seconds (11.9-14.5)
[2023-09-07 14:07] LABS: PARTIAL THROMBOPLASTIN TIME 38.5 seconds (23.8-35.5)
[2023-09-07 14:15] LABS: ALBUMIN 4.1 g/dL (3.5-5.0); ALBUMIN/GLOBULIN RATIO 1.2 (0.8-2.0); ANION GAP 15.6 mmol/L (8-16); BILIRUBIN,TOTAL 0.7 mg/dL (0.2-1.2); CALCIUM 9.3 mg/dL (8.4-10.2); CREATININE, SERUM 0.96 mg/dL (0.57-1.11); POTASSIUM 3.6 mmol/L (3.5-5.1); TOTAL PROTEIN 7.6 g/dL (6.5-8.1)
[2023-09-07] MEDS: LEVOFLOXACIN 750MG/D5W 150ML 150 ML IV SCH (14:24)
[2023-09-07 14:34] LABS: ABG HCO3 33 mmol/L (22-26); ABG PCO2 56 mmHg (35-45); ABG PH 7.38 (7.35-7.45); ABG PO2 53 mmHg (80-105); ABG TCO2 35
[2023-09-07 14:36] VITALS: PULSE 86; RESP 18; O2SAT 99
[2023-09-07] MEDS ORDERED: HYDRALAZINE HCL 20 MG/ML VIAL IV STA (14:50)
[2023-09-07 16:11] LABS: BILIRUBIN,URINE NEGATIVE (NEGATIVE); CLARITY,URINE CLEAR (CLEAR); COLOR,URINE YELLOW (YELLOW); GLUCOSE, URINE NEGATIVE (NEGATIVE); KETONES,URINE NEGATIVE (NEGATIVE); LEUKOCYTE ESTERASE ,URINE NEGATIVE (NEGATIVE); NITRITE,URINE NEGATIVE (NEGATIVE); PH,URINE 5.5 (5 - 7); PROTEIN,URINE DIPSTICK NEGATIVE (NEGATIVE); URINE UROBILINOGEN 0.2 mg/dL (0.2 - 1)
[2023-09-07] MEDS ORDERED: ALBUTEROL/IPRATROPIUM 3 ML NEB NEB ONE (16:15)
[2023-09-07] MEDS ORDERED: ASPIRIN 81 MG CHEW TAB PO ONE (16:15)
[2023-09-07] MEDS ORDERED: SODIUM CHLORIDE FLUSH 10 ML SYR INJ PRN (16:15)
[2023-09-07] MEDS ORDERED: ONDANSETRON HCL INJ 2MG/ML 2ML 2 MG/ML VIAL IV PRN (16:15)
[2023-09-07 17:07] VITALS: PULSE 85; RESP 18; O2SAT 98
[2023-09-07 19:13] LABS: TROPONIN I 0.025 ng/mL (0-0.300)
[2023-09-07 20:35] VITALS: PULSE 86; RESP 20; O2SAT 98
[2023-09-07] MEDS: BENZONATATE 100 MG CAP PO PRN (21:06)
[2023-09-07 23:25] VITALS: BP 171/74; PULSE 88; RESP 20; TEMP 97.6; O2SAT 100
[2023-09-07 23:53] VITALS: BP 184/98; PULSE 85; RESP 18; O2SAT 98
[2023-09-07 23:58] VITALS: BP 184/98; PULSE 85; RESP 18; O2SAT 98
[2023-09-08] VITALS (12 sets, daily range): BP systolic 158–180; BP diastolic 77–108; PULSE 79–105; RESP 18–25; TEMP 97.5–99.3; O2SAT 94–100
[2023-09-08] MEDS ORDERED: XARELTO10 MG PO (02:32)
[2023-09-08] MEDS ORDERED: K-DUR10 MEQ PO (02:32)
[2023-09-08] MEDS ORDERED: GLIPIZIDE5 MG PO (02:32)
[2023-09-08] MEDS ORDERED: CLONIDINE HCL0.2 MG PO (02:32)
[2023-09-08] MEDS ORDERED: PANTOPRAZOLE SO40 MG PO (02:32)
[2023-09-08] MEDS ORDERED: FLUOXETINE HCL20 MG PO (02:32)
[2023-09-08] MEDS: BENZONATATE 100 MG CAP PO PRN ×3 (02:53→21:36)
[2023-09-08 08:39] LABS: BASOPHILS % 0.2 % (0.0-1.0); EOSINOPHILS % 0.1 % (0.0-6.0); HEMATOCRIT 31.2 % (34.2-44.1); HEMOGLOBIN 10.3 g/dL (12.0-16.0); LYMPHOCYTES # (AUTO) 1.7 (1.0-3.2); LYMPHOCYTES % 16.5 % (18.0-39.1); MEAN CORPUSCULAR HEMOGLOBIN 30.6 pg (28-32); MEAN CORPUSCULAR VOLUME 92.6 fL (81-99); MONOCYTES # (AUTO) 0.9 (0.2-0.8); MONOCYTES % 9.1 % (4.4-11.3); NEUTROPHILS # (AUTO) 7.6 (2.1-6.9); NEUTROPHILS % 73.5 % (38.7-80.0); PLATELET COUNT 233 x10e3/uL (140-360); RED BLOOD COUNT 3.37 x10e6/uL (3.6-5.1); RED CELL DISTRIBUTION WIDTH 12.2 % (11.7-14.4); WHITE BLOOD COUNT 10.33 x10e3/uL (4.8-10.8)
[2023-09-08 09:00] LABS: ALBUMIN 3.6 g/dL (3.5-5.0); ALBUMIN/GLOBULIN RATIO 1.2 (0.8-2.0); ANION GAP 12.2 mmol/L (8-16); BILIRUBIN,TOTAL 0.3 mg/dL (0.2-1.2); CREATININE, SERUM 0.98 mg/dL (0.57-1.11); TOTAL PROTEIN 6.6 g/dL (6.5-8.1)
[2023-09-08] MEDS ORDERED: RIVAROXABAN 10 MG TABLET PO SCH (09:00)
[2023-09-08] MEDS ORDERED: NIFEDIPINE CR 30 MG TAB PO SCH (09:00)
[2023-09-08] MEDS: METOPROLOL TARTRATE 50 MG TAB PO SCH ×2 (09:01→17:17)
[2023-09-08 09:02] LABS: POTASSIUM 3.2 mmol/L (3.5-5.1)
[2023-09-08] MEDS: FLUOXETINE HCL 20 MG CAP PO SCH (09:02)
[2023-09-08] MEDS: GABAPENTIN 300 MG CAP PO SCH ×3 (09:04→21:36)
[2023-09-08] MEDS: FUROSEMIDE 40 MG TAB PO SCH ×2 (09:04→21:37)
[2023-09-08] MEDS: LEVALBUTEROL HCL SOLN NEBU 0.63 MG/3 ML NEB INH SCH ×5 (09:27→23:55)
[2023-09-08] MEDS: IPRATROPIUM BROMIDE 17 MCG ACTUATION INHALER INH SCH ×6 (09:28→23:55)
[2023-09-08 09:50] LABS: TROPONIN I 0.02 ng/mL (0-0.300)
[2023-09-08] MEDS ORDERED: ALBUTEROL/IPRATROPIUM 3 ML NEB NEB PRN (10:00)
[2023-09-08] MEDS ORDERED: DOCUSATE SODIUM 100 MG CAP PO PRN (10:00)
[2023-09-08] MEDS ORDERED: DEXTROSE 50% SYRINGE 50 ML IV PRN (10:00)
[2023-09-08 10:19] LABS: CHOL/HDL RATIO 3.2 (3.0-3.6)
[2023-09-08] MEDS: INSULIN REGULAR, HUMAN 100 UNIT/1 ML SQ SCH ×3 (11:23→22:10)
[2023-09-08] MEDS: APIXABAN 5 MG TABLET PO SCH ×2 (11:48→21:36)
[2023-09-08] MEDS ORDERED: METHYLPREDNISOLONE SOD SUCC 125 MG/2ML VIAL IV ONE (13:15)
[2023-09-08] MEDS: LEVOFLOXACIN 750MG/D5W 150ML 150 ML IV SCH (14:33)
[2023-09-08] MEDS: SALMETEROL XINAF/FLUTICASONE 250/50 MCG INHALER INH SCH (21:34)
[2023-09-08] MEDS: MELATONIN 5 MG TABLET PO SCH (21:35)
[2023-09-08] MEDS: ATORVASTATIN 40 MG TAB PO SCH (21:36)
[2023-09-09] VITALS (30 sets, daily range): BP systolic 144–178; BP diastolic 68–112; PULSE 50–99; RESP 11–48; TEMP 97.2–98.9; O2SAT 89–99
[2023-09-09] MEDS: LEVALBUTEROL HCL SOLN NEBU 0.63 MG/3 ML NEB INH SCH ×5 (04:01→23:48)
[2023-09-09] MEDS: SALMETEROL XINAF/FLUTICASONE 250/50 MCG INHALER INH SCH ×2 (06:35→19:00)
[2023-09-09] MEDS: INSULIN REGULAR, HUMAN 100 UNIT/1 ML SQ SCH ×4 (07:30→21:53)
[2023-09-09 08:38] LABS: BASOPHILS % 0.2 % (0.0-1.0); EOSINOPHILS % 0.1 % (0.0-6.0); HEMATOCRIT 31.9 % (34.2-44.1); HEMOGLOBIN 10.5 g/dL (12.0-16.0); LYMPHOCYTES # (AUTO) 2.2 (1.0-3.2); LYMPHOCYTES % 24.3 % (18.0-39.1); MEAN CORPUSCULAR HEMOGLOBIN 30.6 pg (28-32); MEAN CORPUSCULAR HGB CONC 32.9 g/dL (31-35); MONOCYTES # (AUTO) 0.7 (0.2-0.8); MONOCYTES % 8.2 % (4.4-11.3); NEUTROPHILS # (AUTO) 5.9 (2.1-6.9); NEUTROPHILS % 66.6 % (38.7-80.0); PLATELET COUNT 254 x10e3/uL (140-360); RED BLOOD COUNT 3.43 x10e6/uL (3.6-5.1); RED CELL DISTRIBUTION WIDTH 12.2 % (11.7-14.4); WHITE BLOOD COUNT 8.85 x10e3/uL (4.8-10.8)
[2023-09-09] MEDS: NIFEDIPINE CR 30 MG TAB PO SCH ×3 (08:46→20:48)
[2023-09-09] MEDS: GABAPENTIN 300 MG CAP PO SCH ×3 (08:47→20:48)
[2023-09-09] MEDS: FUROSEMIDE 40 MG TAB PO SCH ×2 (08:47→20:48)
[2023-09-09] MEDS: APIXABAN 5 MG TABLET PO SCH ×2 (08:47→17:00)
[2023-09-09] MEDS: METOPROLOL TARTRATE 50 MG TAB PO SCH ×2 (08:47→17:00)
[2023-09-09] MEDS: FLUOXETINE HCL 20 MG CAP PO SCH (08:47)
[2023-09-09 09:14] LABS: ANION GAP 13.9 mmol/L (8-16); CALCIUM 8.9 mg/dL (8.4-10.2); CREATININE, SERUM 0.95 mg/dL (0.57-1.11)
[2023-09-09 09:23] LABS: POTASSIUM 2.9 mmol/L (3.5-5.1)
[2023-09-09] MEDS ORDERED: METHYLPREDNISOLONE SOD SUCC 125 MG/2ML VIAL IV ONE ×2 (10:58→14:45)
[2023-09-09] MEDS ORDERED: POTASSIUM CHLORIDE 20 MEQ TAB CR PO ONE ×2 (10:58→11:30)
[2023-09-09] MEDS: IPRATROPIUM BROMIDE 17 MCG ACTUATION INHALER INH SCH ×4 (11:06→20:56)
[2023-09-09] MEDS: LEVOFLOXACIN 750MG/D5W 150ML 150 ML IV SCH (13:39)
[2023-09-09] MEDS ORDERED: SODIUM CHLORIDE 0.9% 250ML 250 ML ONE (13:45)
[2023-09-09 14:23] LABS: ABG HCO3 36 mmol/L (22-26); ABG PCO2 58 mmHg (35-45); ABG PO2 64 mmHg (80-105); ABG TCO2 38
[2023-09-09] MEDS: CLONIDINE HCL 0.2 MG TAB PO SCH (17:00)
[2023-09-09] MEDS: MELATONIN 5 MG TABLET PO SCH (20:47)
[2023-09-09] MEDS: ATORVASTATIN 40 MG TAB PO SCH (20:48)
[2023-09-10] VITALS (34 sets, daily range): BP systolic 97–188; BP diastolic 51–149; PULSE 70–92; RESP 15–28; TEMP 97.6–99.2; O2SAT 86–100
[2023-09-10] MEDS: IPRATROPIUM BROMIDE 17 MCG ACTUATION INHALER INH SCH ×6 (01:00→21:00)
[2023-09-10] MEDS: LEVALBUTEROL HCL SOLN NEBU 0.63 MG/3 ML NEB INH SCH ×7 (01:00→23:47)
[2023-09-10 03:31] LABS: % IRON SATURATION 28 % (15-50); IRON 85 ug/dL (50-170); TOTAL IRON BINDING CAPACITY 301 ug/dL (261-478); TRANSFERRIN 215 mg/dL (180-382)
[2023-09-10] MEDS: METOCLOPRAMIDE HCL 10 MG/2ML VIAL IV SCH ×4 (06:07→23:56)
[2023-09-10 06:35] LABS: BASOPHILS % 0.2 % (0.0-1.0); EOSINOPHILS % 0.1 % (0.0-6.0); HEMATOCRIT 34.3 % (34.2-44.1); HEMOGLOBIN 11.1 g/dL (12.0-16.0); LYMPHOCYTES # (AUTO) 1.8 (1.0-3.2); LYMPHOCYTES % 15.9 % (18.0-39.1); MEAN CORPUSCULAR HEMOGLOBIN 30.6 pg (28-32); MEAN CORPUSCULAR HGB CONC 32.4 g/dL (31-35); MEAN CORPUSCULAR VOLUME 94.5 fL (81-99); MONOCYTES # (AUTO) 0.7 (0.2-0.8); MONOCYTES % 6.4 % (4.4-11.3); NEUTROPHILS # (AUTO) 8.6 (2.1-6.9); NEUTROPHILS % 76.6 % (38.7-80.0); PLATELET COUNT 274 x10e3/uL (140-360); RED BLOOD COUNT 3.63 x10e6/uL (3.6-5.1); RED CELL DISTRIBUTION WIDTH 11.9 % (11.7-14.4); WHITE BLOOD COUNT 11.27 x10e3/uL (4.8-10.8)
[2023-09-10 06:53] LABS: ANION GAP 14.2 mmol/L (8-16); CALCIUM 9.5 mg/dL (8.4-10.2); CREATININE, SERUM 1.04 mg/dL (0.57-1.11)
[2023-09-10 06:57] LABS: POTASSIUM 3.2 mmol/L (3.5-5.1)
[2023-09-10] MEDS: SALMETEROL XINAF/FLUTICASONE 250/50 MCG INHALER INH SCH ×2 (08:51→23:46)
[2023-09-10] MEDS: METOPROLOL TARTRATE 50 MG TAB PO SCH ×2 (08:55→17:32)
[2023-09-10] MEDS: FUROSEMIDE 40 MG TAB PO SCH ×2 (08:56→20:45)
[2023-09-10] MEDS: APIXABAN 5 MG TABLET PO SCH ×2 (08:58→17:32)
[2023-09-10] MEDS: NIFEDIPINE CR 30 MG TAB PO SCH ×2 (08:58→20:44)
[2023-09-10] MEDS: GABAPENTIN 300 MG CAP PO SCH ×3 (08:59→20:45)
[2023-09-10] MEDS: CLONIDINE HCL 0.2 MG TAB PO SCH ×2 (08:59→17:32)
[2023-09-10] MEDS: FLUOXETINE HCL 20 MG CAP PO SCH (08:59)
[2023-09-10] MEDS ORDERED: METHYLPREDNISOLONE SOD SUCC 125 MG/2ML VIAL IV ONE (10:30)
[2023-09-10 10:35] LABS: INFLUENZAE A&B ANTIGEN (RAPID) NEGATIVE (NEGATIVE)
[2023-09-10 10:36] LABS: RESPIRATORY SYNC. VIRUS NEGATIVE (NEGATIVE)
[2023-09-10] MEDS: INSULIN REGULAR, HUMAN 100 UNIT/1 ML SQ SCH ×4 (11:30→21:04)
[2023-09-10] MEDS: GUAIFENESIN/CODEINE 5 ML LIQD PO PRN (11:36)
[2023-09-10] MEDS: LEVOFLOXACIN 750MG/D5W 150ML 150 ML IV SCH (14:19)
[2023-09-10] MEDS: MELATONIN 5 MG TABLET PO SCH (20:44)
[2023-09-10] MEDS: ATORVASTATIN 40 MG TAB PO SCH (20:44)
[2023-09-11] VITALS (25 sets, daily range): BP systolic 89–177; BP diastolic 64–88; PULSE 59–85; RESP 14–18; TEMP 97.9–98.2; O2SAT 93–100
[2023-09-11] MEDS: IPRATROPIUM BROMIDE 17 MCG ACTUATION INHALER INH SCH ×6 (01:00→19:37)
[2023-09-11] MEDS: LEVALBUTEROL HCL SOLN NEBU 0.63 MG/3 ML NEB INH SCH ×5 (03:42→19:36)
[2023-09-11] MEDS: METOCLOPRAMIDE HCL 10 MG/2ML VIAL IV SCH ×4 (05:47→23:47)
[2023-09-11] MEDS: SALMETEROL XINAF/FLUTICASONE 250/50 MCG INHALER INH SCH ×2 (07:49→19:36)
[2023-09-11] MEDS: NIFEDIPINE CR 30 MG TAB PO SCH ×2 (09:00→20:57)
[2023-09-11] MEDS: FLUOXETINE HCL 20 MG CAP PO SCH (09:16)
[2023-09-11] MEDS: GABAPENTIN 300 MG CAP PO SCH ×3 (09:16→20:56)
[2023-09-11] MEDS: METOPROLOL TARTRATE 50 MG TAB PO SCH ×2 (09:18→17:05)
[2023-09-11] MEDS: FUROSEMIDE 40 MG TAB PO SCH ×2 (09:18→20:56)
[2023-09-11] MEDS: APIXABAN 5 MG TABLET PO SCH ×2 (09:18→17:00)
[2023-09-11] MEDS: FOLIC ACID 1 MG TAB PO SCH (09:19)
[2023-09-11] MEDS: CLONIDINE HCL 0.2 MG TAB PO SCH ×2 (09:19→17:01)
[2023-09-11] MEDS: INSULIN REGULAR, HUMAN 100 UNIT/1 ML SQ SCH ×4 (09:20→20:59)
[2023-09-11] MEDS ORDERED: METHYLPREDNISOLONE SOD SUCC 40 MG/ML VIAL 1ML IV ONE (11:00)
[2023-09-11] MEDS: LEVOFLOXACIN 750MG/D5W 150ML 150 ML IV SCH (17:02)
[2023-09-11] MEDS: GUAIFENESIN/CODEINE 5 ML LIQD PO PRN ×2 (17:19→23:47)
[2023-09-11] MEDS: ATORVASTATIN 40 MG TAB PO SCH (20:56)
[2023-09-11] MEDS: MELATONIN 5 MG TABLET PO SCH (22:40)
[2023-09-12] VITALS (16 sets, daily range): BP systolic 143–159; BP diastolic 65–77; PULSE 60–73; RESP 16–20; TEMP 97.5–98.2; O2SAT 91–100
[2023-09-12] MEDS: LEVALBUTEROL HCL SOLN NEBU 0.63 MG/3 ML NEB INH SCH ×7 (01:00→22:25)
[2023-09-12] MEDS: IPRATROPIUM BROMIDE 17 MCG ACTUATION INHALER INH SCH ×7 (01:00→22:23)
[2023-09-12] MEDS: METOCLOPRAMIDE HCL 10 MG/2ML VIAL IV SCH ×3 (06:10→17:47)
[2023-09-12] MEDS: SALMETEROL XINAF/FLUTICASONE 250/50 MCG INHALER INH SCH ×2 (07:29→18:19)
[2023-09-12] MEDS: INSULIN REGULAR, HUMAN 100 UNIT/1 ML SQ SCH ×4 (07:30→20:40)
[2023-09-12] MEDS: GABAPENTIN 300 MG CAP PO SCH ×3 (08:39→20:29)
[2023-09-12] MEDS: APIXABAN 5 MG TABLET PO SCH ×2 (08:39→16:19)
[2023-09-12] MEDS: NIFEDIPINE CR 30 MG TAB PO SCH ×2 (08:40→20:43)
[2023-09-12] MEDS: CLONIDINE HCL 0.2 MG TAB PO SCH ×2 (08:41→16:20)
[2023-09-12] MEDS: METOPROLOL TARTRATE 50 MG TAB PO SCH ×2 (08:41→16:19)
[2023-09-12] MEDS: FLUOXETINE HCL 20 MG CAP PO SCH (08:42)
[2023-09-12] MEDS: FUROSEMIDE 40 MG TAB PO SCH ×2 (08:43→20:29)
[2023-09-12] MEDS: FOLIC ACID 1 MG TAB PO SCH (08:43)
[2023-09-12] MEDS ORDERED: METHYLPREDNISOLONE SOD SUCC 40 MG/ML VIAL 1ML IV ONE (08:45)
[2023-09-12 08:53] LABS: BASOPHILS % 0.2 % (0.0-1.0); EOSINOPHILS # (AUTO) 0.1 (0.0-0.4); EOSINOPHILS % 0.5 % (0.0-6.0); HEMATOCRIT 32.9 % (34.2-44.1); HEMOGLOBIN 10.8 g/dL (12.0-16.0); LYMPHOCYTES # (AUTO) 2.5 (1.0-3.2); LYMPHOCYTES % 22.6 % (18.0-39.1); MEAN CORPUSCULAR HEMOGLOBIN 30.7 pg (28-32); MEAN CORPUSCULAR HGB CONC 32.8 g/dL (31-35); MEAN CORPUSCULAR VOLUME 93.5 fL (81-99); MONOCYTES # (AUTO) 0.8 (0.2-0.8); MONOCYTES % 7.1 % (4.4-11.3); NEUTROPHILS # (AUTO) 7.6 (2.1-6.9); NEUTROPHILS % 69.1 % (38.7-80.0); PLATELET COUNT 244 x10e3/uL (140-360); RED BLOOD COUNT 3.52 x10e6/uL (3.6-5.1); RED CELL DISTRIBUTION WIDTH 11.9 % (11.7-14.4)
[2023-09-12 09:17] LABS: ANION GAP 13.9 mmol/L (8-16); CALCIUM 9.1 mg/dL (8.4-10.2); CREATININE, SERUM 1.17 mg/dL (0.57-1.11)
[2023-09-12 09:26] LABS: POTASSIUM 2.9 mmol/L (3.5-5.1)
[2023-09-12] MEDS ORDERED: POTASSIUM CHLORIDE 20 MEQ TAB CR PO ONE (10:30)
[2023-09-12] MEDS: LEVOFLOXACIN 750MG/D5W 150ML 150 ML IV SCH (14:27)
[2023-09-12] MEDS: GUAIFENESIN/CODEINE 5 ML LIQD PO PRN (16:16)
[2023-09-12] MEDS: ATORVASTATIN 40 MG TAB PO SCH (20:29)
[2023-09-12] MEDS: MELATONIN 5 MG TABLET PO SCH (20:29)
[2023-09-13] VITALS (12 sets, daily range): BP systolic 145–161; BP diastolic 64–80; PULSE 63–80; RESP 16–20; TEMP 97.4–98.1; O2SAT 91–98
[2023-09-13] MEDS: METOCLOPRAMIDE HCL 10 MG/2ML VIAL IV SCH ×5 (00:04→23:48)
[2023-09-13] MEDS: LEVALBUTEROL HCL SOLN NEBU 0.63 MG/3 ML NEB INH SCH ×5 (03:44→19:08)
[2023-09-13] MEDS: IPRATROPIUM BROMIDE 17 MCG ACTUATION INHALER INH SCH ×5 (03:55→19:09)
[2023-09-13] MEDS: GUAIFENESIN/CODEINE 5 ML LIQD PO PRN ×2 (03:58→21:25)
[2023-09-13 06:16] LABS: BASOPHILS % 0.1 % (0.0-1.0); EOSINOPHILS # (AUTO) 0.1 (0.0-0.4); EOSINOPHILS % 0.6 % (0.0-6.0); HEMATOCRIT 31.3 % (34.2-44.1); HEMOGLOBIN 10.2 g/dL (12.0-16.0); LYMPHOCYTES # (AUTO) 2.1 (1.0-3.2); LYMPHOCYTES % 20.9 % (18.0-39.1); MEAN CORPUSCULAR HEMOGLOBIN 30.4 pg (28-32); MEAN CORPUSCULAR HGB CONC 32.6 g/dL (31-35); MEAN CORPUSCULAR VOLUME 93.2 fL (81-99); MONOCYTES # (AUTO) 0.8 (0.2-0.8); MONOCYTES % 7.8 % (4.4-11.3); NEUTROPHILS # (AUTO) 6.9 (2.1-6.9); PLATELET COUNT 234 x10e3/uL (140-360); RED BLOOD COUNT 3.36 x10e6/uL (3.6-5.1); RED CELL DISTRIBUTION WIDTH 11.9 % (11.7-14.4); WHITE BLOOD COUNT 9.91 x10e3/uL (4.8-10.8)
[2023-09-13 06:34] LABS: ANION GAP 17.1 mmol/L (8-16); CALCIUM 8.9 mg/dL (8.4-10.2); CREATININE, SERUM 1.35 mg/dL (0.57-1.11)
[2023-09-13 06:43] LABS: POTASSIUM 3.1 mmol/L (3.5-5.1)
[2023-09-13] MEDS: SALMETEROL XINAF/FLUTICASONE 250/50 MCG INHALER INH SCH ×2 (07:00→19:00)
[2023-09-13] MEDS: INSULIN REGULAR, HUMAN 100 UNIT/1 ML SQ SCH ×4 (07:30→21:32)
[2023-09-13] MEDS: GABAPENTIN 300 MG CAP PO SCH ×3 (09:35→21:25)
[2023-09-13] MEDS: FLUOXETINE HCL 20 MG CAP PO SCH (09:35)
[2023-09-13] MEDS: METOPROLOL TARTRATE 50 MG TAB PO SCH ×2 (09:37→17:05)
[2023-09-13] MEDS: NIFEDIPINE CR 30 MG TAB PO SCH ×2 (09:40→21:25)
[2023-09-13] MEDS: CLONIDINE HCL 0.2 MG TAB PO SCH ×2 (09:41→17:06)
[2023-09-13] MEDS: FOLIC ACID 1 MG TAB PO SCH (09:41)
[2023-09-13] MEDS: APIXABAN 5 MG TABLET PO SCH ×2 (09:41→17:03)
[2023-09-13] MEDS: FUROSEMIDE 40 MG TAB PO SCH (09:42)
[2023-09-13] MEDS: LEVOFLOXACIN 750MG/D5W 150ML 150 ML IV SCH (12:59)
[2023-09-13] MEDS: ATORVASTATIN 40 MG TAB PO SCH (21:26)
[2023-09-13] MEDS: MELATONIN 5 MG TABLET PO SCH (21:26)
[2023-09-13] MEDS ORDERED: SODIUM CHLORIDE 0.9% 250ML 250 ML ONE (21:38)
[2023-09-14] VITALS (13 sets, daily range): BP systolic 141–166; BP diastolic 61–104; PULSE 59–74; RESP 18–22; TEMP 97.6–98.2; O2SAT 95–100
[2023-09-14] MEDS: IPRATROPIUM BROMIDE 17 MCG ACTUATION INHALER INH SCH ×6 (00:10→19:54)
[2023-09-14] MEDS: LEVALBUTEROL HCL SOLN NEBU 0.63 MG/3 ML NEB INH SCH ×7 (00:10→23:21)
[2023-09-14] MEDS: GUAIFENESIN/CODEINE 5 ML LIQD PO PRN (05:56)
[2023-09-14] MEDS: METOCLOPRAMIDE HCL 10 MG/2ML VIAL IV SCH ×3 (05:56→17:29)
[2023-09-14 06:00] LABS: BASOPHILS % 0.2 % (0.0-1.0); EOSINOPHILS # (AUTO) 0.3 (0.0-0.4); EOSINOPHILS % 3.3 % (0.0-6.0); HEMATOCRIT 29.4 % (34.2-44.1); HEMOGLOBIN 9.8 g/dL (12.0-16.0); LYMPHOCYTES # (AUTO) 1.8 (1.0-3.2); LYMPHOCYTES % 20.7 % (18.0-39.1); MEAN CORPUSCULAR HEMOGLOBIN 30.5 pg (28-32); MEAN CORPUSCULAR HGB CONC 33.3 g/dL (31-35); MEAN CORPUSCULAR VOLUME 91.6 fL (81-99); MONOCYTES # (AUTO) 0.6 (0.2-0.8); MONOCYTES % 7.3 % (4.4-11.3); NEUTROPHILS % 67.8 % (38.7-80.0); PLATELET COUNT 207 x10e3/uL (140-360); RED BLOOD COUNT 3.21 x10e6/uL (3.6-5.1); WHITE BLOOD COUNT 8.81 x10e3/uL (4.8-10.8)
[2023-09-14 06:14] LABS: ANION GAP 14.9 mmol/L (8-16); CALCIUM 8.9 mg/dL (8.4-10.2); CREATININE, SERUM 1.05 mg/dL (0.57-1.11)
[2023-09-14 06:18] LABS: POTASSIUM 2.9 mmol/L (3.5-5.1)
[2023-09-14] MEDS: SALMETEROL XINAF/FLUTICASONE 250/50 MCG INHALER INH SCH ×2 (06:51→19:00)
[2023-09-14] MEDS: INSULIN REGULAR, HUMAN 100 UNIT/1 ML SQ SCH ×4 (07:30→21:00)
[2023-09-14] MEDS: METOPROLOL TARTRATE 50 MG TAB PO SCH ×2 (09:00→17:32)
[2023-09-14] MEDS ORDERED: POTASSIUM CHLORIDE 20MEQ/100ML 100 ML IV ONE (09:15)
[2023-09-14] MEDS ORDERED: POTASSIUM CHLORIDE 20 MEQ TAB CR PO ONE (09:15)
[2023-09-14] MEDS: GABAPENTIN 300 MG CAP PO SCH ×3 (09:41→21:10)
[2023-09-14] MEDS: FOLIC ACID 1 MG TAB PO SCH (09:41)
[2023-09-14] MEDS: FLUOXETINE HCL 20 MG CAP PO SCH (09:41)
[2023-09-14] MEDS: NIFEDIPINE CR 30 MG TAB PO SCH ×2 (09:41→21:10)
[2023-09-14] MEDS: APIXABAN 5 MG TABLET PO SCH ×2 (09:42→17:32)
[2023-09-14] MEDS: CLONIDINE HCL 0.2 MG TAB PO SCH ×2 (09:42→17:30)
[2023-09-14] MEDS: LEVOFLOXACIN 750MG/D5W 150ML 150 ML IV SCH (13:13)
[2023-09-14] MEDS ORDERED: ONDANSETRON HCL 4 MG ORAL DISINTEGRATING TAB PO PRN (14:15)
[2023-09-14] MEDS: ATORVASTATIN 40 MG TAB PO SCH (21:10)
[2023-09-14] MEDS: MELATONIN 5 MG TABLET PO SCH (21:10)
[2023-09-15] VITALS (8 sets, daily range): BP systolic 128–146; BP diastolic 61–76; PULSE 64–81; RESP 16–20; TEMP 97.7–97.9; O2SAT 97–100
[2023-09-15] MEDS: METOCLOPRAMIDE HCL 10 MG/2ML VIAL IV SCH ×2 (00:30→05:43)
[2023-09-15] MEDS: IPRATROPIUM BROMIDE 17 MCG ACTUATION INHALER INH SCH ×4 (03:20→11:28)
[2023-09-15] MEDS: LEVALBUTEROL HCL SOLN NEBU 0.63 MG/3 ML NEB INH SCH ×3 (04:02→11:27)
[2023-09-15 07:11] LABS: BASOPHILS % 0.3 % (0.0-1.0); EOSINOPHILS # (AUTO) 0.6 (0.0-0.4); EOSINOPHILS % 6.3 % (0.0-6.0); HEMATOCRIT 30.3 % (34.2-44.1); LYMPHOCYTES # (AUTO) 1.9 (1.0-3.2); LYMPHOCYTES % 20.9 % (18.0-39.1); MEAN CORPUSCULAR HEMOGLOBIN 30.5 pg (28-32); MEAN CORPUSCULAR VOLUME 92.4 fL (81-99); MONOCYTES # (AUTO) 0.7 (0.2-0.8); MONOCYTES % 7.7 % (4.4-11.3); NEUTROPHILS # (AUTO) 5.9 (2.1-6.9); NEUTROPHILS % 64.3 % (38.7-80.0); PLATELET COUNT 208 x10e3/uL (140-360); RED BLOOD COUNT 3.28 x10e6/uL (3.6-5.1); RED CELL DISTRIBUTION WIDTH 12.1 % (11.7-14.4); WHITE BLOOD COUNT 9.17 x10e3/uL (4.8-10.8)
[2023-09-15 07:28] LABS: ANION GAP 12.2 mmol/L (8-16); CALCIUM 8.8 mg/dL (8.4-10.2); CREATININE, SERUM 1.09 mg/dL (0.57-1.11)
[2023-09-15] MEDS: INSULIN REGULAR, HUMAN 100 UNIT/1 ML SQ SCH (07:30)
[2023-09-15 07:40] LABS: POTASSIUM 3.2 mmol/L (3.5-5.1)
[2023-09-15] MEDS ORDERED: NIFEDIPINE CR 30 MG TAB PO SCH (09:00)
[2023-09-15] MEDS ORDERED: FUROSEMIDE 40 MG TAB PO SCH (09:00)
[2023-09-15] MEDS ORDERED: LASIX40 MG PO (09:44)
[2023-09-15] MEDS ORDERED: PANTOPRAZOLE SO40 MG PO (09:44)
[2023-09-15] MEDS: GABAPENTIN 300 MG CAP PO SCH (11:12)
[2023-09-15] MEDS: CLONIDINE HCL 0.2 MG TAB PO SCH (11:12)
[2023-09-15] MEDS: FOLIC ACID 1 MG TAB PO SCH (11:15)
[2023-09-15] MEDS: METOPROLOL TARTRATE 50 MG TAB PO SCH (11:15)
[2023-09-15] MEDS: APIXABAN 5 MG TABLET PO SCH (11:15)
[2023-09-15] MEDS: FLUOXETINE HCL 20 MG CAP PO SCH (11:16)
[2023-09-15] MEDS: SALMETEROL XINAF/FLUTICASONE 250/50 MCG INHALER INH SCH (11:28)
[2023-09-15] MEDS ORDERED: LEVOFLOXACIN 250 MG TAB PO SCH (13:00)
== END 2023-09-15 13:10 | disposition home health service (06) | DRG 189 ==
LOC: ER 13:34 → ERHOLD 16:09 → MED/SURG3 23:44 → OBSVTOIN 09-08 10:41 → ICU 09-09 15:45 → MED/SURG2 09-11 23:08
PROVIDERS: ADMIT Internal Medicine; ATTEND Internal Medicine
PROC: 4A033R1 Measurement of Arterial Saturation, Peripheral, Percutaneous Approach (ICD-10-PCS; 2023-09-07)
PROC: 5A09357 Assistance with Respiratory Ventilation, Less than 24 Consecutive Hours, Continuous Positive Airway Pressure (ICD-10-PCS; principal; 2023-09-09)
DX: J96.21 Acute and chronic respiratory failure with hypoxia (principal); J44.1 Chronic obstructive pulmonary disease with (acute) exacerbation; J45.901 Unspecified asthma with (acute) exacerbation; I50.32 Chronic diastolic (congestive) heart failure; N17.9 Acute kidney failure, unspecified; J96.22 Acute and chronic respiratory failure with hypercapnia; I11.0 Hypertensive heart disease with heart failure; Z99.81 Dependence on supplemental oxygen; D64.9 Anemia, unspecified; I48.0 Paroxysmal atrial fibrillation; Z79.01 Long term (current) use of anticoagulants; K21.9 Gastro-esophageal reflux disease without esophagitis; R13.12 Dysphagia, oropharyngeal phase; I25.10 Atherosclerotic heart disease of native coronary artery without angina pectoris; E66.9 Obesity, unspecified; Z68.34 Body mass index [BMI] 34.0-34.9, adult; E11.42 Type 2 diabetes mellitus with diabetic polyneuropathy; E11.51 Type 2 diabetes mellitus with diabetic peripheral angiopathy without gangrene; Z79.84 Long term (current) use of oral hypoglycemic drugs; R63.4 Abnormal weight loss; Z11.52 Encounter for screening for COVID-19
CPT/HCPCS: 36415; 36600; 70450; 71045; 80048; 80053; 80061; 81001; 82550; 82607; 82746; 82805; 82948; 83036; 83540; 83605; 83880; 84132; 84466; 84484; 85025; 85045; 85610; 85730; 87040; 87086; 87400; 87420; 93005; 93306; 94640; 94660; 94799; 96361; 96372; 99252; 99285; G0378; J2765; J2920; J2930; J3480; J7030; J7050; U0002

== ENCOUNTER 2023-12-16 10:36 | Inpatient (IN) | payer MEDICARE ==
[~2023-12-16] VITALS: Ht 160 cm; Wt 93.0 kg
[~2023-12-16 10:36] MED LIST changes: +CLONIDINE HCL0.2 MG PO; +FLUOXETINE HCL20 MG PO; +GLIPIZIDE5 MG PO; +K-DUR10 MEQ PO; +LASIX40 MG PO; +MEDROL PACK PO; +PANTOPRAZOLE SO40 MG PO
[2023-12-16] MEDS ORDERED: CEFEPIME HCL 1 GM VIAL ONE ×2 (11:05→20:03)
[2023-12-16 11:08] LABS: BASOPHILS # (AUTO) 0.1 (0.0-0.1); BASOPHILS % 0.7 % (0.0-1.0); EOSINOPHILS # (AUTO) 1.2 (0.0-0.4); EOSINOPHILS % 10.1 % (0.0-6.0); HEMATOCRIT 34.5 % (34.2-44.1); HEMOGLOBIN 11.7 g/dL (12.0-16.0); LYMPHOCYTES # (AUTO) 3.5 (1.0-3.2); LYMPHOCYTES % 29.8 % (18.0-39.1); MEAN CORPUSCULAR HEMOGLOBIN 30.5 pg (28-32); MEAN CORPUSCULAR HGB CONC 33.9 g/dL (31-35); MEAN CORPUSCULAR VOLUME 89.8 fL (81-99); MONOCYTES # (AUTO) 0.8 (0.2-0.8); MONOCYTES % 6.7 % (4.4-11.3); NEUTROPHILS # (AUTO) 6.2 (2.1-6.9); NEUTROPHILS % 52.4 % (38.7-80.0); PLATELET COUNT 291 x10e3/uL (140-360); RED BLOOD COUNT 3.84 x10e6/uL (3.6-5.1); RED CELL DISTRIBUTION WIDTH 13.1 % (11.7-14.4); WHITE BLOOD COUNT 11.76 x10e3/uL (4.8-10.8)
[2023-12-16] MEDS ORDERED: Doxycycline IV 100 MG Vial IV ONE (11:08)
[2023-12-16] MEDS ORDERED: SODIUM CHLORIDE 0.9% 250ML 250 ML ONE ×2 (11:08→21:57)
[2023-12-16] MEDS ORDERED: Vancomycin IV 1 GM VIAL ONE (11:08)
[2023-12-16] MEDS ORDERED: SODIUM CHLORIDE 0.9% 100 ML ONE (11:08)
[2023-12-16 11:13] LABS: INR 1.08; PROTHROMBIN TIME 14.8 seconds (11.9-14.5)
[2023-12-16 11:14] LABS: PARTIAL THROMBOPLASTIN TIME 30.4 seconds (23.8-35.5)
[2023-12-16 11:21] LABS: ALANINE AMINOTRANSFERASE 12 IU/L (0-55); ALBUMIN/GLOBULIN RATIO 1.2 (0.8-2.0); ALKALINE PHOSPHATASE 86 IU/L (40-150); ANION GAP 19.3 mmol/L (8-16); BILIRUBIN,TOTAL 0.7 mg/dL (0.2-1.2); BLOOD UREA NITROGEN 14 mg/dL (7-26); BUN/CREATININE RATIO 13 (6-25); CALCIUM 9.6 mg/dL (8.4-10.2); CARBON DIOXIDE 27 mmol/L (22-29); CHLORIDE 102 mmol/L (98-107); CREATINE KINASE 35 IU/L (29-168); CREATININE, SERUM 1.09 mg/dL (0.57-1.11); EST GLOMERULAR FILTRATION RATE 54 ML/MIN (>=60); GLUCOSE 142 mg/dL (74-118); MAGNESIUM 1.6 MG/DL (1.3-2.1); SODIUM 145 mmol/L (136-145); TOTAL PROTEIN 7.4 g/dL (6.5-8.1)
[2023-12-16 11:23] LABS: POTASSIUM 3.3 mmol/L (3.5-5.1)
[2023-12-16 11:27] LABS: TROPONIN I < 0.001 ng/mL (0-0.300)
[2023-12-16] MEDS ORDERED: FAMOTIDINE20 MG PO (11:30)
[2023-12-16] MEDS: Vancomycin IV 1 GM in SODIUM CHLORIDE 0.9% 250ML 250 ML IV ONE (11:33)
[2023-12-16 13:44] VITALS: PULSE 96; RESP 28; O2SAT 95
[2023-12-16] MEDS ORDERED: ONDANSETRON HCL INJ 2MG/ML 2ML 2 MG/ML VIAL IV PRN (13:45)
[2023-12-16] MEDS ORDERED: ALBUTEROL/IPRATROPIUM 3 ML NEB ONE (13:52)
[2023-12-16] MEDS: ALBUTEROL/IPRATROPIUM 3 ML NEB NEB SCH (14:14)
[2023-12-16] MEDS: Doxycycline IV 100 MG in SODIUM CHLORIDE 0.9% 100 ML IV SCH (14:17)
[2023-12-16] MEDS ORDERED: DEXTROSE 50% SYRINGE 50 ML IV PRN (17:00)
[2023-12-16] MEDS: METHYLPREDNISOLONE SOD SUCC 125 MG/2ML VIAL IV SCH (17:08)
[2023-12-16] MEDS: APIXABAN 5 MG TABLET PO SCH (17:08)
[2023-12-16] MEDS ORDERED: METHYLPREDNISOLONE SOD SUCC 125 MG/2ML VIAL ONE (17:09)
[2023-12-16] MEDS ORDERED: CLONIDINE HCL 0.2 MG TAB ONE (17:09)
[2023-12-16] MEDS: CLONIDINE HCL 0.2 MG TAB PO SCH (17:09)
[2023-12-16] MEDS ORDERED: METOPROLOL TARTRATE 50 MG TAB ONE (17:09)
[2023-12-16] MEDS ORDERED: APIXABAN 5 MG TABLET ONE (17:09)
[2023-12-16] MEDS: METOPROLOL TARTRATE 50 MG TAB PO SCH (17:10)
[2023-12-16] MEDS ORDERED: FAMOTIDINE 20 MG/2 ML VIAL IV ONE (17:10)
[2023-12-16] MEDS: FAMOTIDINE 20 MG/2 ML VIAL IV SCH (17:11)
[2023-12-16 18:01] VITALS: BP 207/86; PULSE 94; RESP 22; TEMP 98.2; O2SAT 100
[2023-12-16 18:25] VITALS: BP 207/86; PULSE 94; RESP 22; TEMP 98.2; O2SAT 98
[2023-12-16 18:47] VITALS: PULSE 83; RESP 20; O2SAT 98
[2023-12-16 20:00] VITALS: BP 190/92; PULSE 81; RESP 20; TEMP 98.5; O2SAT 100
[2023-12-16] MEDS ORDERED: NIFEDIPINE CR 30 MG TAB ONE (20:03)
[2023-12-16] MEDS ORDERED: METHYLPREDNISOLONE SOD SUCC 40 MG/ML VIAL 1ML ONE (20:04)
[2023-12-16 20:38] LABS: TROPONIN I 0.001 ng/mL (0-0.300)
[2023-12-16] MEDS: INSULIN LISPRO 100 UNIT/1 ML 3ML VIAL SQ SCH (21:42)
[2023-12-16] MEDS: NIFEDIPINE CR 30 MG TAB PO SCH (21:46)
[2023-12-16 23:40] VITALS: PULSE 82; RESP 20; O2SAT 100
[2023-12-17] VITALS (10 sets, daily range): BP systolic 139–179; BP diastolic 63–88; PULSE 80–96; RESP 18–20; TEMP 98.2–98.7; O2SAT 96–100
[2023-12-17 05:38] LABS: HEMATOCRIT 31.2 % (34.2-44.1); HEMOGLOBIN 10.1 g/dL (12.0-16.0); LYMPHOCYTES # (AUTO) 0.9 (1.0-3.2); LYMPHOCYTES % 11.8 % (18.0-39.1); MEAN CORPUSCULAR HEMOGLOBIN 29.4 pg (28-32); MEAN CORPUSCULAR HGB CONC 32.4 g/dL (31-35); MONOCYTES # (AUTO) 0.1 (0.2-0.8); MONOCYTES % 1.5 % (4.4-11.3); NEUTROPHILS # (AUTO) 6.4 (2.1-6.9); NEUTROPHILS % 85.4 % (38.7-80.0); PLATELET COUNT 223 x10e3/uL (140-360); RED BLOOD COUNT 3.43 x10e6/uL (3.6-5.1); RED CELL DISTRIBUTION WIDTH 12.7 % (11.7-14.4); WHITE BLOOD COUNT 7.45 x10e3/uL (4.8-10.8)
[2023-12-17 06:17] LABS: ALBUMIN 3.6 g/dL (3.5-5.0); ALBUMIN/GLOBULIN RATIO 1.2 (0.8-2.0); ANION GAP 15.6 mmol/L (8-16); BILIRUBIN,TOTAL 0.4 mg/dL (0.2-1.2); CALCIUM 9.4 mg/dL (8.4-10.2); CREATININE, SERUM 0.91 mg/dL (0.57-1.11); POTASSIUM 3.6 mmol/L (3.5-5.1); TOTAL PROTEIN 6.6 g/dL (6.5-8.1)
[2023-12-17 06:32] LABS: CREATINE KINASE 30 IU/L (29-168)
[2023-12-17 06:49] LABS: TROPONIN I < 0.001 ng/mL (0-0.300)
[2023-12-17] MEDS: BENZONATATE 100 MG CAP PO PRN ×2 (10:16→17:14)
[2023-12-17] MEDS: METHYLPREDNISOLONE SOD SUCC 40 MG/ML VIAL 1ML IV SCH (10:24)
[2023-12-17] MEDS ORDERED: PANTOPRAZOLE SOD 40 MG TABEC PO SCH (10:30)
[2023-12-17] MEDS ORDERED: GUAIFENESIN/CODEINE 5 ML LIQD PO PRN (10:30)
[2023-12-17] MEDS ORDERED: CEFEPIME HCL 1 GM VIAL ONE (10:36)
[2023-12-17] MEDS ORDERED: FAMOTIDINE 20 MG/2 ML VIAL IV ONE (10:36)
[2023-12-17] MEDS ORDERED: GABAPENTIN 300 MG CAP ONE (10:36)
[2023-12-17] MEDS ORDERED: METHYLPREDNISOLONE SOD SUCC 40 MG/ML VIAL 1ML ONE (10:36)
[2023-12-17] MEDS ORDERED: Doxycycline IV 100 MG Vial IV ONE (10:36)
[2023-12-17] MEDS ORDERED: ALBUTEROL/IPRATROPIUM 3 ML NEB ONE (10:36)
[2023-12-17] MEDS ORDERED: BENZONATATE 100 MG CAP ONE (10:36)
[2023-12-17] MEDS ORDERED: SODIUM CHLORIDE 0.9% INJ 100 ML BAG ONE (10:36)
[2023-12-17] MEDS ORDERED: PANTOPRAZOLE SOD 40 MG TABEC ONE (10:36)
[2023-12-17] MEDS ORDERED: APIXABAN 5 MG TABLET ONE (10:36)
[2023-12-17] MEDS ORDERED: Sodium Chloride 0.9% 50ML Bag ONE (10:36)
[2023-12-17] MEDS ORDERED: METOPROLOL TARTRATE 50 MG TAB ONE (10:36)
[2023-12-17] MEDS ORDERED: METHYLPREDNISOLONE SOD SUCC 125 MG/2ML VIAL ONE (10:36)
[2023-12-17] MEDS ORDERED: CLONIDINE HCL 0.2 MG TAB ONE (10:36)
[2023-12-17] MEDS ORDERED: NIFEDIPINE CR 30 MG TAB ONE (10:36)
[2023-12-17] MEDS: NIFEDIPINE CR 30 MG TAB PO SCH (12:28)
[2023-12-17] MEDS: PANTOPRAZOLE SOD 40 MG TABEC PO SCH (12:28)
[2023-12-17] MEDS: INSULIN GLARGINE 100 UNITS/ML VIAL SQ SCH (12:29)
[2023-12-17] MEDS: METHYLPREDNISOLONE SOD SUCC 40 MG/ML VIAL 1ML IV ONE (12:31)
[2023-12-17 13:28] LABS: ABG PH 7.54 (7.35-7.45)
[2023-12-17 13:29] LABS: ABG HCO3 25 mmol/L (22-26); ABG PCO2 29 mmHg (35-45); ABG PO2 65 mmHg (80-105); ABG TCO2 25
[2023-12-17] MEDS ORDERED: ONDANSETRON HCL 4 MG ORAL DISINTEGRATING TAB PO PRN (13:30)
[2023-12-17] MEDS: CLONIDINE HCL 0.2 MG TAB PO SCH (14:17)
[2023-12-17] MEDS ORDERED: SALMETEROL/FLUTICASONE 500/50 INH SCH (19:00)
[2023-12-18] MEDS ORDERED: FLUOXETINE HCL 20 MG CAP PO SCH (09:00)
== END 2023-12-17 18:51 | DRG 189 ==
LOC: ER 10:46 → ERHOLD 13:31 → MED/SURG3 14:30
PROVIDERS: ADMIT Internal Medicine; ATTEND Internal Medicine
DX: J96.01 Acute respiratory failure with hypoxia (principal); J18.9 Pneumonia, unspecified organism; J44.0 Chronic obstructive pulmonary disease with (acute) lower respiratory infection; J44.1 Chronic obstructive pulmonary disease with (acute) exacerbation; I13.0 Hypertensive heart and chronic kidney disease with heart failure and stage 1 through stage 4 chronic kidney disease, or unspecified chronic kidney disease; I50.30 Unspecified diastolic (congestive) heart failure; E11.22 Type 2 diabetes mellitus with diabetic chronic kidney disease; Z99.81 Dependence on supplemental oxygen; J20.9 Acute bronchitis, unspecified; G47.33 Obstructive sleep apnea (adult) (pediatric); K21.9 Gastro-esophageal reflux disease without esophagitis; I48.0 Paroxysmal atrial fibrillation; E66.9 Obesity, unspecified; Z68.36 Body mass index [BMI] 36.0-36.9, adult; N18.9 Chronic kidney disease, unspecified; E78.5 Hyperlipidemia, unspecified; I25.10 Atherosclerotic heart disease of native coronary artery without angina pectoris; M15.9 Polyosteoarthritis, unspecified; Z85.828 Personal history of other malignant neoplasm of skin; Z88.0 Allergy status to penicillin; Z88.8 Allergy status to other drugs, medicaments and biological substances; Z79.01 Long term (current) use of anticoagulants; Z79.84 Long term (current) use of oral hypoglycemic drugs; Z77.22 Contact with and (suspected) exposure to environmental tobacco smoke (acute) (chronic)
CPT/HCPCS: 36415; 70450; 71045; 71250; 72125; 80053; 82550; 82785; 82805; 82948; 83605; 83735; 83880; 84484; 85025; 85610; 85730; 87040; 87400; 87420; 93005; 94660; 94799; 99252; 99285; J0692; J2919; J7050; U0002